=== PATIENT | male | born 1930 | race Caucasian/White ===

== ENCOUNTER → 2016-09-06 | Outpatient (CLI) | payer OTHER ==
[2016-09-06 10:37] LABS: CREATININE 0.9 mg/dL (0.70-1.50)
--- NOTE | 2016-09-06 19:13 | DI ---
History: Lloydalex's Prior study dated 08/10/16 available for comparison Current examination is performed administrating 65 cc of Isovue-370 intravenously ingested oral contr ast material. Inder's study is from the thoracic aorta. The level of the sella turcica. Findings: Small amount of granulation tissue right maxillary sinus. Ethmoid and sphenoid air cells ar e normal. Mastoid air cells well pneumatized. Skull base unremarkable. Some degenerative changes observed in the cervical canal. Hypopharynx unremarkable. Thoracic esophagus unremarkable. No CT evidence of mass or Zenkers divertic ulum. Sternum is unremarkable. Thyroid gland unremarkable in cross section. Mediastinum unremarkable to extent detected. Impression: No compelling evidence of Zenker's diverticulum. A small diverticulum that dilates with i ngested fluid may not be visible. Consider fluoroscopic evaluation Minor amount of granulation tissue present right maxillary sinus
== END ==
LOC: CT 10:00
PROVIDERS: ATTEND Surgery
DX: K22.5 Diverticulum of esophagus, acquired (principal)
CPT/HCPCS: 36415; 70491; 82565; 84520

== ENCOUNTER → 2016-10-24 | Outpatient (CLI) | payer OTHER | LOC: MMPC 09:00 | DX: C61 Malignant neoplasm of prostate (principal); K22.5 Diverticulum of esophagus, acquired; E03.9 Hypothyroidism, unspecified; G47.33 Obstructive sleep apnea (adult) (pediatric); I10 Essential (primary) hypertension; Z86.010 Personal history of colon polyps; H35.30 Unspecified macular degeneration | CPT/HCPCS: 99213; G0463 ==

== ENCOUNTER → 2016-12-07 | Outpatient (CLI) | payer OTHER | LOC: LAB 13:06 | DX: C61 Malignant neoplasm of prostate (principal) | CPT/HCPCS: 36415; 84153 ==

== ENCOUNTER → 2016-12-20 | Outpatient (CLI) | payer OTHER | LOC: MMPC 11:11 | DX: C61 Malignant neoplasm of prostate (principal); E03.9 Hypothyroidism, unspecified; K22.5 Diverticulum of esophagus, acquired; G47.33 Obstructive sleep apnea (adult) (pediatric); I10 Essential (primary) hypertension; Z86.010 Personal history of colon polyps | CPT/HCPCS: 99213; G0463 ==

== ENCOUNTER → 2017-02-07 | Outpatient (CLI) | payer OTHER | LOC: LAB 13:42 | PROVIDERS: ATTEND Urology | DX: C61 Malignant neoplasm of prostate (principal) | CPT/HCPCS: 36415; 84153 ==

== ENCOUNTER → 2017-02-20 | Outpatient (CLI) | payer OTHER | LOC: MMPC 11:11 | DX: C61 Malignant neoplasm of prostate (principal); I10 Essential (primary) hypertension; E55.9 Vitamin D deficiency, unspecified; E03.9 Hypothyroidism, unspecified; K63.5 Polyp of colon | CPT/HCPCS: 99213 ==

== ENCOUNTER → 2017-02-21 | Outpatient (CLI) | payer OTHER ==
[2017-02-21 08:35] LABS: BASOPHILS # (AUTO) 0.04 10*3/UL; BASOPHILS % (AUTO) 0.7 % (0-1); EOSINOPHILS # (AUTO) 0.28 10*3/UL; EOSINOPHILS % (AUTO) 4.7 % (0-8); HEMATOCRIT 39.6 % (42.0-52.0); HEMOGLOBIN 12.5 g/dL (14.0-18.0); LYMPHOCYTES # (AUTO) 1.74 10*3/uL; MEAN CORPUSCULAR HGB CONC 31.6 g/dL (33-37); MEAN PLATELET VOLUME 10.8 FL (7.4-12.2); MONOCYTES # (AUTO) 0.75 10*3/UL (0.3-0.8); MONOCYTES % (AUTO) 12.5 % (5-15); NEUTROPHILS # (AUTO) 3.18 10*3/UL; NEUTROPHILS % (AUTO) 52.9 % (50-80); RED BLOOD COUNT 4.17 10^6/uL (4.70-6.10)
[2017-02-21 08:44] LABS: PLATELET MORPHOLOGY COMMENT NORMAL MORPHOLOGY (NORM); RBC MORPHOLOGY COMMENT NORMAL MORPHOLOGY (NORM); WBC MORPHOLOGY COMMENT NORMAL MORPHOLOGY (NORM)
[2017-02-21 08:48] LABS: BUN/CREATININE RATIO 23.33 (6-20); CALCIUM 9.3 mg/dL (8.7-10.7); CHOL/HDL RATIO 3.2 RATIO (0-4.0); LDL CHOLESTEROL,CALCULATED 79.4 mg/dL; SERUM ALBUMIN 4.2 g/dL (3.5-4.8)
[2017-02-21 09:04] LABS: BILIRUBIN,URINE NEGATIVE (NEG); CLARITY,URINE CLEAR (CLEAR); COLOR,URINE YELLOW; GLUCOSE, URINE (UA) NEGATIVE (NEG); NITRATE,URINE POSITIVE (NEG); OCCULT BLOOD,URINE NEGATIVE (NEG); PH,URINE 5.5 (5.0-8.5); PROTEIN,URINE NEGATIVE (NEG); UROBILINOGEN,URINE 0.2 mg/dL (0.2)
[2017-02-21 09:09] LABS: BACTERIA,URINE RARE; URINE CRYSTALS FEW; URINE SAMPLE TYPE CLEAN CATCH URINE
[2017-02-21 10:25] LABS: FREE T4 (FREE THYROXINE) 1.32 ng/dL (0.93-1.71)
== END ==
LOC: LAB 08:02
DX: I10 Essential (primary) hypertension (principal); E03.9 Hypothyroidism, unspecified; E78.5 Hyperlipidemia, unspecified; E55.9 Vitamin D deficiency, unspecified; C61 Malignant neoplasm of prostate
CPT/HCPCS: 36415; 80053; 80061; 81001; 82306; 84439; 84443; 85025

== ENCOUNTER → 2017-04-05 | Outpatient (CLI) | payer OTHER | LOC: LAB 13:33 | PROVIDERS: ATTEND Urology | DX: C61 Malignant neoplasm of prostate (principal) | CPT/HCPCS: 36415; 84153 ==

== ENCOUNTER 2017-06-22 16:28 | Inpatient (IN) ==
--- NOTE | 2017-06-22 16:47 | PDOC ---
General Adult HPI - General Chief Complaint: Abdomen Pain Stated Complaint: constipation Date Seen by Provider: 06/22/17 Time Seen by Provider: 16:47 Source: POSITIVE: Patient Exam Limitations: POSITIVE: No limitations Nurse's Notes Reviewed & Considered: Yes - History of Present Illness Initial Comment: Patient is a 86-year-old male who presents to the emergency department for constipation. Patient indicates he has had no good bowel movement over the last 4 days. He does have some mild abdominal discomfort and distention. He started vomiting today. He was seen in urgent care yesterday and started on MiraLAX and magnesium citrate though seems to be getting worse. Patient has had a history of what sounds like colitis in the past but no history of bowel obstruction. Patient reports decreased passage of gas. Patient denies any urinary symptoms. He has not had any coughing or chest symptoms. Have you received a tetanus shot in the past 10 years?: Unknown - Patient Home Medications Home Medications: Home Medications Aspirin [Aspir 81] 81 mg PO DAILY 04/19/15 Cholecalciferol (Vitd3)/Vit K2 [D3 + K2 Dots 1,000 Units Tab] 1 tab PO DAILY Lutein 1 cap PO BID #60 04/19/15 Mineral Oil/Petrolatum,White [Eucerin Creme] 1 applic TOPICAL PRN PRN 04/19/15 Omeprazole 1 cap PO QD #90 04/19/15 Simvastatin 10 mg PO DAILY 04/19/15 Soap [Cetaphil] 1 applic TOPICAL PRN PRN 04/19/15 Sodium Chloride [Saline Nasal [place]] 2 spray BUCCAL BID 04/19/15 Spironolactone 0.5 tab PO QD #15 04/19/15 Polyvinyl Alcohol/Povidone/Pf [Refresh Classic Eye Drops] 1 ea OP QD #1 bottle 06/12/16 L.acidoph,Saliva/B.bif/S.therm [Acidophilus 175 Mg Capsule] 1 cap PO QD #30 cap 09/06/16 Wheat Dextrin [Benefiber] 2 sc PO QD #1 bottle 10/24/16 Levothyroxine Sodium 1 tab PO .QD(EXCEPT SUN.) #90 tab 02/22/17 Calcium Carb, Citrate/Vit D3 [Calcium + D3 ER Tablet] 1 ea PO DAILY 06/22/17 Paroxetine HCl [Paxil] 40 mg PO DAILY 06/22/17 - Patient Allergies Allergies/Adverse Reactions: Allergies 3 Allergy/AdvReac Type Severity Reaction Status Date / Time lisinopril AdvReac Severe Anaphylaxis Verified 06/22/17 16:33 Past Medical History - heen HEENT History: Macular Degeneration, Cataracts, Hard of Hearing, Other (please comment) Additional HEENT History: Bilateral hearing aids Cardiovascular History: Hypertension, Hyperlipidemia Respiratory History: Sleep Apnea, Other (please comment) Additional Respiratory History: CHRONIC SINUSITIS, BIPAP USED Gastrointestinal History: GERD, Diverticulitis, Other (please comment) Additional Gastrointestinal History: "I was sent to [place] a while ago for colon problems". Genitourinary History: Other (please comment) Additional Genitourinary History: RETENTION. Pt self caths at home BID Endocrine History: Hypothyroidism Musculoskeletal History: Arthritis Prosthesis or Implant: No Neurological History: Denies History Blood Disorders: Denies History Psychiatric History: Denies History History of Sexually Transmitted Diseases: No Cancer History: Denies History, Other (please comment) Cancer Treatment / Date(s) of Treatment: current In Past Year Been Physically Harmed or Verbally Threatened: No History of MDRO: Unknown Other Type of MDRO: staff in bladder infection History of Other Communicable Diseases: No Tobacco Use: Former Smoker Alcohol Use: None In the Past 12 Months, Have Used or Abuse Any Substance: None Previous Surgical History: Yes Type / Date of Surgery: Cataracts, TONSILECTOMY, SINUS, ESOPAGUS STRETCHING, AND PROSTATE(turp) Anesthesia Reactions: No Significant Family History: No pertinent family hx Past Medical History Reviewed: Reviewed - No Changes ROS - Limitations ROS Limitations: No Limitations Constitution: REPORTS: Denies Symptoms Cardiovascular: REPORTS: Denies Cardiac Symptoms Respiratory: REPORTS: Denies Resp Symptoms Neurological: REPORTS: Denies Neuro Symptoms Gastrointestinal: REPORTS: Abdominal Pain, Nausea, Constipation Endocrine: REPORTS: Denies Symptoms Musculoskeletal: REPORTS: Denies MS Symptoms Genitourinary: REPORTS: Denies Symptoms Eyes: REPORTS: Denies Symptoms ENT: REPORTS: Denies Symptoms Skin: REPORTS: Denies Skin Symptoms Psychiatric: POSITIVE: Denies Psych Symptoms General Adult Exam - General Appearance General Appearance: POSITIVE: Alert, Cooperative, No Acute Distress - HEENT HEENT: POSITIVE: Head Inspection Nml, Eyes Inspection Nml, Oral/Dental Inspect. Nml - Pupils Pupil Size: 4 mm: Bilateral - Neck Neck: POSITIVE: Normal Inspection - Respiratory Respiratory: POSITIVE: No Respiratory Distress, Breath Sounds Normal - Cardiovascular Cardiovascular: POSITIVE: Regular Rate & Rhythm, No Murmur, No Gallop - Abdomen Additional Abdominal Details: There is distention and tympany to palpation of the abdomen. There is fullness in the left lower quadrant. No manav rebound. There is diffuse tenderness to palpation. - Rectal Rectal: POSITIVE: Non Tender. NEGATIVE: Bloody Stool, Fecal Impaction - Skin Skin: POSITIVE: Normal Color, Warm, Dry - Extremities Extremity: Non-Tender: (LLE), (RLE), Normal ROM: (RLE), (LLE) - Neurological / Psychological Neurological: POSITIVE: Affect Apporpriate, Oriented X3 General Adult Progress - Results Reviewed by me Xrays/CTs/US Reviewed by me: Yes Lab Results Reviewed by Me: Yes CBC and BMP: 06/22/17 17:02 06/22/17 17:02 - Patient's Progress MDM / ED Course: Patient is a 86 y/o male who presents with abdominal discomfort and constipation. Vitals are unremarkable and examination demonstrates some distention of the abdomen. Differential diagnosis includes but is not limited to bowel obstruction, constipation, colitis. Patients XR is concerning for obstruction with air fluid levels and distention of the bowel. Patients white blood cell count was slightly elevated as well. Patient was given a 500 ns bolus of saline and treated with zofran. Patient was feeling somewhat better after fluids and zofran. I spoke with Dr. Strong of general surgery who will evaluate patient at bedside. CT scan is not available at this time due to technical problems. Patient's urine does appear to potentially be infected. I spoke with Dr. Rainey who will order antibiotics. NG tube will be placed on the floor. - Consult Consult (If Yes, Name of Consulting MD & Time Called): Yes (Ligia ) Consulting MD will see pt:: POSITIVE: In ED, [facility] Admit Patient Care Time - Estimated PCT Patient Care Time (In Minutes): 40 Vital Signs - Recent Vital Signs Vital Signs: Vital Signs (Last 8 hours) Temp Pulse Resp BP Pulse Ox 06/22/17 16:32 95.6 F L 77 18 152/95 94 - VS Reviewed Vital Signs Reviewed: Yes Discharge Clinical Impression: Bowel obstruction Qualifiers: Intestinal obstruction type: other intestinal obstruction Intestinal obstruction extent: unspecified extent Qualified Code(s): K56.699 - Other intestinal obstruction unspecified as to partial versus complete obstruction Discharge Disposition: Admit to Inpatient Condition: Good Date Decision to Admit to Inpatient: 06/22/17 Time Decision to Admit to Inpatient: 18:37
[2017-06-22] MEDS ORDERED: Sodium Chloride 0.9% 1,000 ML PRIMARY IV ONE ×2 (16:48→19:24)
[2017-06-22] MEDS ORDERED: ONDANSETRON 4 MG/2 ML VIAL IVP ONE (16:48)
[2017-06-22 17:07] LABS: BASOPHILS # (AUTO) 0.01 10*3/UL; BASOPHILS % (AUTO) 0.1 % (0-1); EOSINOPHILS # (AUTO) 0 10*3/UL; EOSINOPHILS % (AUTO) 0 % (0-8); Hematocrit [HCT] 41.8 % (42.0-52.0); Hemoglobin [HGB] 13.6 g/dL (14.0-18.0); LYMPHOCYTES # (AUTO) 0.69 10*3/uL; MEAN CORPUSCULAR HEMOGLOBIN 30.6 PG (27-31); MEAN CORPUSCULAR HGB CONC 32.5 g/dL (33-37); MEAN CORPUSCULAR VOLUME 94.1 FL (80-90); MEAN PLATELET VOLUME 10.8 FL (7.4-12.2); MONOCYTES # (AUTO) 0.93 10*3/UL (0.3-0.8); MONOCYTES % (AUTO) 8.2 % (5-15); NEUTROPHILS # (AUTO) 9.68 10*3/UL; NEUTROPHILS % (AUTO) 85.5 % (50-80); RED BLOOD COUNT 4.44 10^6/uL (4.70-6.10)
[2017-06-22 17:14] LABS: BLOOD UREA NITROGEN 33 mg/dL (7-22); BUN/CREATININE RATIO 36.66 (6-20); LIPASE 21 IU/L (23-300); SERUM ALBUMIN 4.4 g/dL (3.5-4.8)
[2017-06-22 17:29] LABS: PLATELET MORPHOLOGY COMMENT NORMAL MORPHOLOGY (NORM); RBC MORPHOLOGY COMMENT NORMAL MORPHOLOGY (NORM); WBC MORPHOLOGY COMMENT NORMAL MORPHOLOGY (NORM)
[2017-06-22 18:19] LABS: BILIRUBIN,URINE NEGATIVE (NEG); CLARITY,URINE CLOUDY (CLEAR); COLOR,URINE YELLOW; GLUCOSE, URINE (UA) NEGATIVE (NEG); NITRATE,URINE NEGATIVE (NEG); OCCULT BLOOD,URINE MODERATE (NEG); PROTEIN,URINE 100 mg/dl (NEG); UROBILINOGEN,URINE 0.2 mg/dL (0.2)
[2017-06-22 18:28] LABS: URINE SAMPLE TYPE CLEAN CATCH URINE; WBC,URINE 15-20
[2017-06-22 18:29] LABS: BACTERIA,URINE MANY; URINE CRYSTALS MANY
--- NOTE | 2017-06-22 19:03 | CONSULT ---
Consult Note - Consult Consult Date: 06/22/17 Reason for Consult: PreOp Consulation : General Surgery Requesting Physician: Dr. Karen Desir Primary Care Provider: Giovanni Medeiros MD - History of Present Illness History of Present Illness: Patient is an 86-year-old male who reports retrospectively that problems have been going on for some time. His last bowel movement was on Sunday. He has passed very little gas since that time. He reports his bowels had been more difficult for about the last several weeks to a month. The stool is always hard. It was hard to pass it. He was not having diarrhea. There was no bright red blood per rectum. He denies funny size or shape was to the stool. Patient had an attempted colonoscopy in 2014. They describe severe diverticulosis but were unable to pass the sigmoid colon. Patient had two CTs of his abdomen and pelvis in June and July 2016. No gross abnormalities were seen as far as tumors or masses. On the first when he had a left hydroureter. There was thought to be reflux secondary to obstruction. That is when he was diagnosed with his prostate cancer. The second study showed dried stool in the sigmoid colon and an abnormal prostate. Patient has never had an obstructive process before. He has had no abdominal surgeries. He does have prostate cancer and has been on Lupron injections. The tells me he is in remission. He denies any significant dietary indiscretion. His abdomen has slowly become more and more distended. He was seen in the open access clinic yesterday and diagnosed with constipation. No x-ray studies were done. He took some MiraLAX, magnesium citrate, and mineral oil. He took some Dulcolax suppositories. He has not yet given himself an enema. After we did all that he became more distended and had nausea and vomiting. He presented to the emergency room for the same. He was evaluated by the emergency room physician. CAT scan is down mechanically but we are trying to do a scan on a SpectCT. His flat and upright abdomen shows distended small bowel and I believe large bowel. There appears to be air in the sigmoid colon as well. The emergency room physician did a rectal exam and did not note a stool impaction. Patient does not have an acute abdomen. He is distended and tympanitic with mild tenderness. His white count is only slightly elevated. I believe it is reasonable to admit him for an NG tube, hydration, and follow-up studies. We will see what the CT scan shows when we are able to do it. Any signs of deterioration he would need a laparotomy. It is worrisome he has an obstructive process without prior abdominal surgeries. This could be anything from small bowel to colon. I discussed all of this with the patient and his family. He understands we do not have a functioning CT scan. He would like to stay here unless it is absolutely necessary to transfer him to [place] at this time. I have told him and the family I do not think that it is. I discussed his case extensively with Dr. Sainz in the emergency room and Dr. Jones. Dr. Jones we will admit him and I will follow him closely in consultation. The CT scan has just now been completed. Patient has large volumes of stool in the right colon and the sigmoid colon. The sigmoid colon seems to taper down to an area of diverticulosis. This is probably where the could no longer proceed with his colonoscopy. I do not see an obvious mass or a stricture. I believe he has a fecal impaction above this area and his sigmoid colon. I will order a mineral oil enema. We will check the final report from radiology when available. Review of Systems - Gastrointestinal Gastrointestinal / Abdominal: REPORTS: Nausea, Vomiting, Constipation, Abdominal Pain, Poor Appetite, Bloating, See HPI. DENIES: Negative System Review, Diarrhea, Bloody Stool, Heartburn, Regurgitation, Lactose Intolerance, Melena, Bright Red Blood per Rectum, Other Past Medical History Medical History: 1. Hypertension. 2. Hypothyroidism. 3. Intermittent self- catheterization with previous history of 2 UTIs last one was in March this year. 4. Sleep apnea. 5. Zenker's diverticulum. 6. History of colon polyps. 7. Prostate cancer. 8. Hyperlipidemia Surgical History: 1. BPH status post TURP in 1998. 2. Cataract surgery. 3. Incomplete colonoscopy in 2014. 4. Zenker's diverticulum surgery in 2016. 5. Remote tonsillectomy and adenoidectomy Family History: Reviewed an Not Pertinent Tobacco Use: Former Smoker Do you dip or chew tobacco: No In the Past 12 Months, Have Used or Abuse Any of the Following Substance: None Medication / Allergies Home Medications: Home Medications Medication Instructions Recorded Confirmed Type Aspirin [Aspir 81] 81 mg PO DAILY 04/19/15 06/22/17 History Cholecalciferol (Vitd3)/Vit K2 [D3 1 tab PO DAILY 04/19/15 06/22/17 History + K2 Dots 1,000 Units Tab] Lutein 1 cap PO BID #60 04/19/15 06/22/17 History Mineral Oil/Petrolatum,White 1 applic TOPICAL PRN PRN 04/19/15 06/22/17 History [Eucerin Creme] Omeprazole 1 cap PO QD #90 04/19/15 06/22/17 History Simvastatin 10 mg PO DAILY 04/19/15 06/22/17 History Soap [Cetaphil] 1 applic TOPICAL PRN PRN 04/19/15 06/22/17 History Sodium Chloride [Saline Nasal 2 spray BUCCAL BID 04/19/15 06/22/17 History [place]] Spironolactone 0.5 tab PO QD #15 04/19/15 06/22/17 History Polyvinyl Alcohol/Povidone/Pf 1 ea OP QD #1 bottle 06/12/16 06/22/17 History [Refresh Classic Eye Drops] L.acidoph,Saliva/B.bif/S.therm 1 cap PO QD #30 cap 09/06/16 06/22/17 Rx [Acidophilus 175 Mg Capsule] Wheat Dextrin [Benefiber] 2 sc PO QD #1 bottle 10/24/16 06/22/17 Rx Levothyroxine Sodium 1 tab PO .QD(EXCEPT SUN.) #90 tab 02/22/17 06/22/17 History Calcium Carb, Citrate/Vit D3 1 ea PO DAILY 06/22/17 06/22/17 History [Calcium + D3 ER Tablet] Paroxetine HCl [Paxil] 40 mg PO DAILY 06/22/17 06/22/17 History Allergies/Adverse Reactions: Allergies 3 Allergy/AdvReac Type Severity Reaction Status Date / Time lisinopril AdvReac Severe Anaphylaxis Verified 06/22/17 16:33 Results - Labs CBC and BMP: 06/22/17 17:02 06/22/17 17:02 - Imaging Status: Image Reviewed by Me (I reviewed the CT scan and the flat and upright abdomen films. Please see history of present illness.), Report Reviewed by Me ( The flat and upright report was reviewed as well. CT report is pending.) Exam - General General Appearance: Cooperative, Mild Distress - Respiratory Respiratory Exam: POSITIVE: Clear to Auscultation - Bilaterally, Breathing Non Labored - Cardiovascular Cardiovascular Exam: POSITIVE: RRR, No Murmur - GI/Abdominal GI/Abdominal Exam: POSITIVE: Soft, Distended, Hypoactive Bowel Sounds, No Masses Additional GI/Abdominal Exam Details: Abdomen is markedly distended and tympanitic. There are rushes and gurgles. There is mild diffuse tenderness but no peritoneal signs. - Rectal Additional Rectal Exam Details: Digital rectal exam done per the ER physician. He did not feel a fecal impaction. No obvious masses. I did not repeat the exam. - Neurological Neurological Exam: POSITIVE: Alert, Oriented x 3 - Psychiatric Psychiatric Exam: POSITIVE: Normal Affect, Normal Mood Assessment and Plan - Patient Problems (1) Bowel obstruction Current Visit: Yes Status: Acute Priority: High Onset Date: ~06/17/17 Comment: He has a large volume of stool in the colon. It looks like the colon tapers down to an area of diverticulosis where the stool is no longer passing through. I don't believe he is completely obstructed. I believe this is a large bowel high-grade partial obstruction. We will review the radiology report when available. Patient has gotten some medications from above. We will continue NG tube decompression. We will do a mineral oil enema. I don't think this area would be palpable on digital rectal exam. We'll need to consider an unprepped sigmoidoscopy to see if we can open things up. Any signs of deterioration he will need to undergo resection and diverting colostomy. We will also consider Gastrografin from above to see if that will loosen things up. I have discussed all of this with the ER doctor, Dr. Jones, the patient, and his family. They agreed to proceed as outlined. Code(s): K56.609 - Unspecified intestinal obstruction, unspecified as to partial versus complete obstruction Qualifiers: Intestinal obstruction type: other intestinal obstruction Intestinal obstruction extent: unspecified extent Qualified Code(s): K56.699 - Other intestinal obstruction unspecified as to partial versus complete obstruction (2) Diverticulosis large intestine w/o perforation or abscess w/o bleeding Current Visit: Yes Status: Chronic Priority: Low Comment: May be a functional stricture. Code(s): K57.30 - Diverticulosis of large intestine without perforation or abscess without bleeding (3) Fecal impaction Current Visit: Yes Status: Acute Comment: Secondary to above. Code(s): K56.41 - Fecal impaction
--- NOTE | 2017-06-22 19:09 | DI ---
EXAM: XR Abdomen, 1 View CLINICAL HISTORY: 86 y/o male with abdominal pain and distension. TECHNIQUE: Frontal supine view of the abdomen/pelvis. COMPARISON: No relevant prior studies available. FINDINGS: Gastrointestinal tract: Dilated bowel with air fluid levels. Bones/joints: Degenerative changes. Other findings: Three films including supine films of the abdomen and pelvis and upright film of the abdomen. IMPRESSION: Dilated bowel with air fluid levels. Findings suggest bowel obstruction.
[2017-06-22] MEDS ORDERED: ACETAMINOPHEN 325 MG TABLET PO PRN (19:24)
[2017-06-22] MEDS ORDERED: LIDOCAINE W/ SODIUM BICARB 0.5 ML SYR SUBD PRN (19:24)
[2017-06-22] MEDS ORDERED: HYDROmorphone 2 MG/1 ML IVP PRN (19:24)
[2017-06-22] MEDS ORDERED: ONDANSETRON 4 MG/2 ML VIAL IVP PRN (19:24)
[2017-06-22] MEDS ORDERED: NORMAL SALINE 10 ML SYRINGE FLUSH IVP PRN (19:24)
--- NOTE | 2017-06-22 19:59 | DI ---
EXAM: CT Abdomen and Pelvis With Intravenous Contrast CLINICAL HISTORY: Physician Notes: Tech Comments: TECHNIQUE: Axial computed tomography images of the abdomen and pelvis with intravenous contrast. COMPARISON: CT 08/10/16. Earlier films. FINDINGS: Lower thorax: Bilateral ground-glass opacities in the lower lung lowery. Small hiatal hernia. ABDOMEN: Liver: Unremarkable. Gallbladder and bile ducts: No calcified stones. No ductal dilation. Pancreas: Unremarkable. Spleen: Unremarkable. Adrenals: Unremarkable. Kidneys and ureters: Left renal scarring with too small to characterize foci. Dilatation of the left renal collecting system and ureter. No obstructing stone. Too small to characterize low attenuation foci in the right kidney. Stomach and bowel: Dilatation of small and large bowel with caliber change in the sigmoid colon. Must exclude underlying stricturing and obstructing lesion. Colonic diverticula. Some peripheral located air in bowel. Could be related to the stooling pattern - luminal contents. There is radiographic overlap with pneumatosis. Correlate with lactic acidosis if clinically appropriate. Appendix: Borderline caliber of the appendix, measures about 7 mm. PELVIS: Bladder: Unremarkable. Reproductive: Heterogeneous prostate with nodular lesion superiorly measuring about 12 mm. ABDOMEN and PELVIS: Intraperitoneal space: Small amounts of fluid in the peritoneal cavity. Bones/joints: No acute fracture. Soft tissues: Unremarkable. Vasculature: Unremarkable. Lymph nodes: No enlarged lymph nodes. IMPRESSION: 1. Dilatation of small and large bowel with caliber change in the sigmoid colon. Must exclude underlying stricturing and obstructing lesion. 2. Bilateral ground-glass opacities in the lower lung lowery. May be from edema, pneumonia and/or hemorrhage. [employer] 06/22/17 20:05 Verify Receipt Verified receipt with LUDY Farley in ER for Dr. Brennan Sainz on 06/22 20:04 (-06:00)
[2017-06-22] MEDS ORDERED: Fleet Enema 133ml RECTAL ONE (20:07)
[2017-06-22] MEDS ORDERED: LIDOCAINE HCL/PF 2% (20 MG/ML) - 5 ML SYRINGE ONE (20:11)
[2017-06-22] MEDS ORDERED: Fleet Enema w/Mineral Oil 133ml RECTAL ONE (20:13)
[2017-06-22] MEDS: Sodium Chloride 0.9% 1,000 ML PRIMARY IV SCH (20:55)
--- NOTE | 2017-06-22 23:35 | PDOC ---
HPI - History of Present Illness Date and Time of Service: 06/22/2017, 5079 Chief Complaint: abdominal pain and constipation History of Present Illness: 86 YO here with and with daughter complains of 3-4 days of lower abdominal pain and constipation never had abdominal surgery, not on opiates had incomplete colonoscopy in 2014 with sigmoid diverticulosis no fevers, no chills, no dysuria no bloody vomit or stools saw urgent care. placed on magnesium citrate. then mineral oil neither worked had xrays that show dilated loops of bowel CT scan shows possible fecal impaction per surgery patient had success in past with miralax does not use and has not used opiates UA suggests possible UTI, but patient with hx of prostate CA and self cath in past; no dysuria and no fever Past Medical History Medical History: 1. Hypertension. 2. Hypothyroidism. 3. Intermittent self- catheterization with previous history of 2 UTIs last one was in March this year. 4. Sleep apnea. 5. Zenker's diverticulum, surgically repaired. 6. History of colon polyps. 7. Prostate cancer, on lupron. 8. Hyperlipidemia Surgical History: 1. BPH status post TURP in 1998. 2. Cataract surgery. 3. Incomplete colonoscopy in 2014. 4. Zenker's diverticulum surgery in 2016. 5. Remote tonsillectomy and adenoidectomy Family History: Reviewed an Not Pertinent Pertinent Family History: mother of natural causes Past Social History: no smoking, alcohol, or drug use. over 60 years. lives in [place], [place] Tobacco Use: Former Smoker Do you dip or chew tobacco: No In the Past 12 Months, Have Used or Abuse Any of the Following Substance: None Alcohol Use: None Medication / Allergies Home Medications: Home Medications Medication Instructions Recorded Confirmed Type Aspirin [Aspir 81] 81 mg PO DAILY 04/19/15 06/22/17 History Cholecalciferol (Vitd3)/Vit K2 [D3 1 tab PO DAILY 04/19/15 06/22/17 History + K2 Dots 1,000 Units Tab] Lutein 1 cap PO BID #60 04/19/15 06/22/17 History Mineral Oil/Petrolatum,White 1 applic TOPICAL PRN PRN 04/19/15 06/22/17 History [Eucerin Creme] Omeprazole 1 cap PO QD #90 04/19/15 06/22/17 History Simvastatin 10 mg PO DAILY 04/19/15 06/22/17 History Soap [Cetaphil] 1 applic TOPICAL PRN PRN 04/19/15 06/22/17 History Sodium Chloride [Saline Nasal 2 spray BUCCAL BID 04/19/15 06/22/17 History Almena] Spironolactone 0.5 tab PO QD #15 04/19/15 06/22/17 History Polyvinyl Alcohol/Povidone/Pf 1 ea OP QD #1 bottle 06/12/16 06/22/17 History [Refresh Classic Eye Drops] L.acidoph,Saliva/B.bif/S.therm 1 cap PO QD #30 cap 09/06/16 06/22/17 Rx [Acidophilus 175 Mg Capsule] Wheat Dextrin [Benefiber] 2 sc PO QD #1 bottle 10/24/16 06/22/17 Rx Levothyroxine Sodium 1 tab PO .QD(EXCEPT SUN.) #90 tab 02/22/17 06/22/17 History Calcium Carb, Citrate/Vit D3 1 ea PO DAILY 06/22/17 06/22/17 History [Calcium + D3 ER Tablet] Paroxetine HCl [Paxil] 40 mg PO DAILY 06/22/17 06/22/17 History Allergies/Adverse Reactions: Allergies 3 Allergy/AdvReac Type Severity Reaction Status Date / Time lisinopril AdvReac Severe Anaphylaxis Verified 06/22/17 16:33 Review of Systems - Review of Systems All Systems: Reviewed & No Additional Complaints Except as Stated (I did a 12 point review of systems. As per HPI and occasional shoulder pain.) Exam - Vitals Vital Signs: Vital Signs Temperature 98.0 F Temperature Source Temporal Artery Scan Pulse Rate 84 Respiratory Rate 20 Blood Pressure 196/104 Pulse Ox 94 Oxygen Flow Rate 1 Oxygen Delivery Method Nasal Cannula Height 5 ft 11 in Weight 172 lb 9.6 oz - General General Appearance: No Acute Distress, Cooperative - Head Head Exam: Normal Inspection, Normocephalic, Atraumatic - Eye Eye Exam: POSITIVE: Normal Appearance, EOMI, No Scleral Icterus - ENT ENT Exam: POSITIVE: Mucous Membranes Moist - Neck Neck Exam: Normal Inspection, No Tenderness, No Lymphadenopathy, No Thyromegaly - Respiratory Respiratory Exam: POSITIVE: Clear to Auscultation - Bilaterally, Breathing Non Labored, Normal to Percussion and Palpation - Cardiovascular Cardiovascular Exam: POSITIVE: RRR, No Murmur, No Clicks, No Gallops, No Rubs, No JVD - GI/Abdominal GI/Abdominal Exam: POSITIVE: Non Tender, Diminished Bowel Sounds - Rectal Rectal Exam: POSITIVE: Deferred (done in ER) - External Exam: POSITIVE: Deferred Exam: POSITIVE: Deferred - Extremities Extremities Exam: POSITIVE: No Clubbing Present, No Edema Present, No Cyanosis Present - Back Back Exam: POSITIVE: No CVA Tenderness - Neurological Neurological Exam: POSITIVE: Alert, Oriented x 3, No Facial Droop, Speech Intact / Clear, Moves All Extremities Equally - Psychiatric Psychiatric Exam: POSITIVE: Normal Affect, Normal Mood Results - Labs CBC and BMP: 06/22/17 17:02 06/22/17 17:02 Additional Lab Results: Laboratory Results 06/22/17 06/22/17 06/22/17 Range/Units 16:48 16:56 16:56 WBC (4.8-10.8) 10^3/uL RBC (4.70-6.10) 10^6/uL Hgb (14.0-18.0) g/dL Hct (42.0-52.0) % MCV (80-90) FL MCH (27-31) PG MCHC (33-37) g/dL RDW Std Deviation (39-50) fL RDW Coeff of Valerie (11.5-14.5) % Plt Count (140-350) 10*3/uL MPV (7.4-12.2) FL Immature Gran % (Auto) (0-5) % Neut % (Auto) (50-80) % Lymph % (Auto) (10-50) % Collier % (Auto) (5-15) % Eos % (Auto) (0-8) % Baso % (Auto) (0-1) % Immature Gran # (Auto) 10*3/UL Neut # (Auto) 10*3/UL Lymph # (Auto) 10*3/uL Collier # (Auto) (0.3-0.8) 10*3/UL Eos # (Auto) 10*3/UL Baso # (Auto) 10*3/UL WBC Morphology Comment (NORM) Plt Morphology Comment (NORM) RBC Morph Comment (NORM) Sodium (135-145) meq/L Potassium (3.8-5.2) meq/L Chloride (98-112) meq/L Carbon Dioxide (23-33) meq/L Anion Gap (5-20) BUN (7-22) mg/dL Creatinine (0.70-1.50) mg/dL BUN/Creatinine Ratio (6-20) Glucose (78-110) mg/dL Calculated Osmolality (267-292) mOsm/kg Lactic Acid (0.70-2.10) MMOL/L Calcium (8.7-10.7) mg/dL Total Bilirubin (0.3-1.2) mg/dL AST (21-57) IU/L ALT (21-72) IU/L Alkaline Phosphatase (38-126) IU/L Troponin I < 0.012 (< 0.040) ng/mL Total Protein (6.1-8.0) g/dL Albumin (3.5-4.8) g/dL Globulin (2.50-4.10) g/dL Albumin/Globulin Ratio (1.3-2.0) mg/g Lipase (23-300) IU/L TSH 2.77 (0.2700-4.2000) uIU/mL Free T4 0.92 L (0.93-1.71) ng/dL Ur Collection Type Clean catch urine Urine Color Yellow Urine Clarity Cloudy (CLEAR) Urine pH 7.0 (5.0-8.5) Ur Specific [place] 1.025 (1.005-1.030) Urine Protein 100 (NEG) mg/dl Urine Glucose (UA) Negative (NEG) mg/dL Urine Ketones Negative (NEG) Urine Occult Blood Moderate (NEG) Urine Nitrate Negative (NEG) Urine Bilirubin Negative (NEG) Urine Urobilinogen 0.2 (0.2) mg/dL Ur Leukocyte Esterase Small (NEG) Urine RBC 4-6 (NONE) /hpf Urine WBC 15-20 (NONE) Ur Squamous Epith Cells None (NONE) Ur Renal Epithelial Cell None (NONE) Urine Crystals Many Urine Bacteria Many (NONE) Urine Casts None Urine Mucus None (NONE) Urine Trichomonas None (NONE) Urine Yeast None (NONE) 06/22/17 06/22/17 06/22/17 Range/Units 17:02 17:02 18:00 WBC 11.32 H (4.8-10.8) 10^3/uL RBC 4.44 L (4.70-6.10) 10^6/uL Hgb 13.6 L (14.0-18.0) g/dL Hct 41.8 L (42.0-52.0) % MCV 94.1 H (80-90) FL MCH 30.6 (27-31) PG MCHC 32.5 L (33-37) g/dL RDW Std Deviation 45.3 (39-50) fL RDW Coeff of Valerie 13.6 (11.5-14.5) % Plt Count 213 (140-350) 10*3/uL MPV 10.8 (7.4-12.2) FL Immature Gran % (Auto) 0.1 (0-5) % Neut % (Auto) 85.5 H (50-80) % Lymph % (Auto) 6.1 L (10-50) % Collier % (Auto) 8.2 (5-15) % Eos % (Auto) 0 (0-8) % Baso % (Auto) 0.1 (0-1) % Immature Gran # (Auto) 0.01 10*3/UL Neut # (Auto) 9.68 10*3/UL Lymph # (Auto) 0.69 10*3/uL Collier # (Auto) 0.93 H (0.3-0.8) 10*3/UL Eos # (Auto) 0 10*3/UL Baso # (Auto) 0.01 10*3/UL WBC Morphology Comment Normal morphology (NORM) Plt Morphology Comment Normal morphology (NORM) RBC Morph Comment Normal morphology (NORM) Sodium 141 (135-145) meq/L Potassium 4.3 (3.8-5.2) meq/L Chloride 93 L (98-112) meq/L Carbon Dioxide 33 (23-33) meq/L Anion Gap 15 (5-20) BUN 33 H (7-22) mg/dL Creatinine 0.9 (0.70-1.50) mg/dL BUN/Creatinine Ratio 36.66 H (6-20) Glucose 155 H (78-110) mg/dL Calculated Osmolality 301.0 H (267-292) mOsm/kg Lactic Acid 2.3 H (0.70-2.10) MMOL/L Calcium 9.7 (8.7-10.7) mg/dL Total Bilirubin 1.0 (0.3-1.2) mg/dL AST 42 (21-57) IU/L ALT 29 (21-72) IU/L Alkaline Phosphatase 67 (38-126) IU/L Troponin I (< 0.040) ng/mL Total Protein 7.5 (6.1-8.0) g/dL Albumin 4.4 (3.5-4.8) g/dL Globulin 3.1 (2.50-4.10) g/dL Albumin/Globulin Ratio 1.40 (1.3-2.0) mg/g Lipase 21 L (23-300) IU/L TSH (0.2700-4.2000) uIU/mL Free T4 (0.93-1.71) ng/dL Ur Collection Type Urine Color Urine Clarity (CLEAR) Urine pH (5.0-8.5) Ur Specific [place] (1.005-1.030) Urine Protein (NEG) mg/dl Urine Glucose (UA) (NEG) mg/dL Urine Ketones (NEG) Urine Occult Blood (NEG) Urine Nitrate (NEG) Urine Bilirubin (NEG) Urine Urobilinogen (0.2) mg/dL Ur Leukocyte Esterase (NEG) Urine RBC (NONE) /hpf Urine WBC (NONE) Ur Squamous Epith Cells (NONE) Ur Renal Epithelial Cell (NONE) Urine Crystals Urine Bacteria (NONE) Urine Casts Urine Mucus (NONE) Urine Trichomonas (NONE) Urine Yeast (NONE) - EKG Data -: EKG Interpreted by Me Rate: Normal EKG Shows Normal: Sinus Rhythm - EKG Data EKG Interpretation: Other (right bundle branch block) - Imaging Status: Image Reviewed by Me (xrays of abdomen show dilated loops of bowel CT scan shows dilated loops of bowel radiology interpretations noted) Assessment and Plan - Patient Problems (1) Bowel obstruction Current Visit: Yes Status: Acute Code(s): K56.609 - Unspecified intestinal obstruction, unspecified as to partial versus complete obstruction Qualifiers: Intestinal obstruction type: other intestinal obstruction Intestinal obstruction extent: unspecified extent Qualified Code(s): K56.699 - Other intestinal obstruction unspecified as to partial versus complete obstruction (2) Hx: UTI (urinary tract infection) Current Visit: Yes Status: Acute Code(s): Z87.440 - Personal history of urinary (tract) infections (3) GERD (gastroesophageal reflux disease) Current Visit: Yes Status: Acute Code(s): K21.9 - Gastro-esophageal reflux disease without esophagitis Qualifiers: Esophagitis presence: without esophagitis Qualified Code(s): K21.9 - Gastro -esophageal reflux disease without esophagitis (4) Hypertension Current Visit: Yes Status: Acute Code(s): I10 - Essential (primary) hypertension Qualifiers: Hypertension type: essential hypertension Qualified Code(s): I10 - Essential (primary) hypertension (5) Hypothyroidism Current Visit: Yes Status: Chronic Code(s): E03.9 - Hypothyroidism, unspecified Qualifiers: Hypothyroidism type: acquired Qualified Code(s): E03.9 - Hypothyroidism, unspecified (6) Prostate cancer Current Visit: Yes Status: Acute Code(s): C61 - Malignant neoplasm of prostate - Assessment / Plan Additional Assessment/Plan Details: admit IV fluids, bolus and maintenance rate no antibiotics--I do not think patient has UTI. he does not have dysuria or fever NPO pain meds and antiemetics discussed with and consulted surgery--try mineral oil enema tonight repeat abdominal films in AM tried NG tube, but after two attempts, both were in right lung--to avoid injury and complications, aspiration PNA, etc, I elected to abort this procedure. I notified surgery--they would like another attempt in AM. given prior nasal surgery and zenker's surgery, not sure if anatomy will allow, but I did discuss with RN lia, and they will make another attempt in AM. I discussed aborting procedure tonight with family. if fevers develop, treat for aspiration pneumonia check labs in AM surgical management as per Dr. Strong check TSH given some hypothyroid symptoms despite replacement patient is FULL CODE. I discussed risks and benefits with the family and patient. patient and family are in agreement with the plan.
[2017-06-23] MEDS: Sodium Chloride 0.9% 1,000 ML PRIMARY IV SCH ×2 (04:51→12:10)
[2017-06-23] MEDS ORDERED: LEVOTHYROXINE 75 MCG TABLET PO SCH (05:30)
[2017-06-23 06:02] LABS: BASOPHILS # (AUTO) 0.01 10*3/UL; BASOPHILS % (AUTO) 0.1 % (0-1); EOSINOPHILS # (AUTO) 0 10*3/UL; EOSINOPHILS % (AUTO) 0 % (0-8); Hematocrit [HCT] 37.3 % (42.0-52.0); Hemoglobin [HGB] 11.8 g/dL (14.0-18.0); LYMPHOCYTES # (AUTO) 0.68 10*3/uL; MEAN CORPUSCULAR HEMOGLOBIN 30.3 PG (27-31); MEAN CORPUSCULAR HGB CONC 31.6 g/dL (33-37); MEAN CORPUSCULAR VOLUME 95.9 FL (80-90); MONOCYTES # (AUTO) 0.85 10*3/UL (0.3-0.8); MONOCYTES % (AUTO) 10.5 % (5-15); NEUTROPHILS # (AUTO) 6.51 10*3/UL; NEUTROPHILS % (AUTO) 80.9 % (50-80); RED BLOOD COUNT 3.89 10^6/uL (4.70-6.10)
[2017-06-23 06:07] LABS: PLATELET MORPHOLOGY COMMENT NORMAL MORPHOLOGY (NORM); RBC MORPHOLOGY COMMENT NORMAL MORPHOLOGY (NORM); WBC MORPHOLOGY COMMENT NORMAL MORPHOLOGY (NORM)
[2017-06-23 06:16] LABS: BLOOD UREA NITROGEN 32 mg/dL (7-22); SERUM ALBUMIN 3.4 g/dL (3.5-4.8)
--- NOTE | 2017-06-23 08:23 | EKG ---
[address] [address] Measurements Intervals [place] Rate: 74 P: 10 TN: 162 QRS: 94 QRSD: 146 T: 79 QT: 415 QTc: 443 Interpretive Statements SINUS RHYTHM RIGHT BUNDLE BRANCH BLOCK (NEW) NONSPECIFIC T WAVE ABNORMALITY Compared to ECG 04/19/2015 21:36:50 Right bundle-branch block now present Short TN interval no longer present Electronically Signed On 06-23-17 11:23:42 MDT by Woo Mcfarlane [email or web address]
[2017-06-23] MEDS ORDERED: LIDOCAINE HCL 2 % 10 ML JELLY URO-JECT TOPICAL ONE (08:28)
--- NOTE | 2017-06-23 08:45 | DI ---
2 VIEW ABDOMEN: HISTORY: 86-year-old male with bowel obstruction. COMPARISON: Abdominal x-rays and abdomen and pelvis CT with intravenous contrast 06/22/2017. FINDINGS: Supine and upright views of the abdomen demonstrate numerous lung air-fluid levels within mildly to moderately dilated large and small bowel loops throughout the abdomen and pelvis, without obvious significant interval change. No obvious pneumoperitoneum or pneumatosis. There is excreted intravenous contrast within the mildly to moderately distended urinary bladder, as well as within the mildly dilated distal left ureter. There are patchy coarse reticular opacities within the imaged lung bases bilaterally, as before. IMPRESSION: No significant short interval change: Grossly stable bowel gas pattern, with air-fluid levels throughout mildly to moderately dilated large and small bowel loops; no pneumoperitoneum or obvious pneumatosis.
--- NOTE | 2017-06-23 09:43 | PDOC(PROG) ---
Date and Time of Service: 06/23/2017 9:44 AM Interval History: Subjective Patient came into the hospital because of constipation for about 5 days, no significant abdominal pain. He did say that he went to the urgent clinic 2 days ago they gave him mag citrate, MiraLAX and Fleet enema. He tried the mag citrate and he vomited after that. he came into the ER yesterday was found to have bowel obstruction and he was admitted. He is denying abdominal pain. No nausea. They had problems inserting the NG last night and was just inserted this morning. He's not passing gas and did not have a bowel movement yet. Apparently he used to do self catheterization but he stopped doing it 2 months ago as instructed by his urologist Objective : Data - Labs CBC and BMP: 06/23/17 05:54 06/23/17 05:54 Objective : Exam - General General Appearance: No Acute Distress, Cooperative - Head Head Exam: Normal Inspection, Atraumatic - Eye Eye Exam: Normal Appearance - ENT ENT Exam: Normal Exam - Neck Neck Exam: Normal Inspection - Respiratory Respiratory Exam: Clear to Auscultation - Bilaterally - Cardiovascular Cardiovascular Exam: RRR - GI/Abdominal GI/Abdominal Exam: No Organomegaly Additional GI/Abdominal Exam Details: Abdomen is firm. Distended. Nontender. Very sluggish bowel sounds. - Rectal Rectal Exam: Deferred - External Exam: Deferred - Extremities Extremities Exam: Normal Inspection - Back Back Exam: Normal Inspection - Neurological Neurological Exam: Alert, Oriented x 3, CN II-XII Intact, Speech Intact / Clear , Moves All Extremities Equally - Psychiatric Psychiatric Exam: Normal Affect - Integumentary Integumentary Exam: Normal Color Assessment and Plan - Patient Problems (1) Bowel obstruction Current Visit: Yes Status: Acute Comment: He had the NG inserted this morning continue suctioning. Continue IV fluid. Will see the recommendation of surgery today. Code(s): K56.609 - Unspecified intestinal obstruction, unspecified as to partial versus complete obstruction Qualifiers: Intestinal obstruction type: other intestinal obstruction Intestinal obstruction extent: unspecified extent Qualified Code(s): K56.699 - Other intestinal obstruction unspecified as to partial versus complete obstruction (2) Hypertension Current Visit: Yes Status: Acute Comment: He is normally on Aldactone, will watch his blood pressure now. Code(s): I10 - Essential (primary) hypertension Qualifiers: Hypertension type: essential hypertension Qualified Code(s): I10 - Essential (primary) hypertension (3) Hypothyroidism Current Visit: Yes Status: Chronic Comment: He is on levothyroxine. Code(s): E03.9 - Hypothyroidism, unspecified Qualifiers: Hypothyroidism type: acquired Qualified Code(s): E03.9 - Hypothyroidism, unspecified (4) Ground glass opacity present on imaging of lung Current Visit: Yes Status: Acute Comment: CT showed groundglass opacities when he came in. He is denying symptoms. His white count is back to normal. There is no fever. No cough. I think will watch it for now. Code(s): R91.8 - Other nonspecific abnormal finding of lung field
[2017-06-23] MEDS ORDERED: Fleet Enema w/Mineral Oil 133ml RECTAL ONE (10:09)
--- NOTE | 2017-06-23 11:14 | DI ---
PORTABLE AP UPRIGHT ABDOMEN: HISTORY: 86-year-old male with bowel obstruction; status post NG tube placement. COMPARISON: 2 view abdomen earlier same date. FINDINGS: New NG tube extends into the stomach and terminates in the region of the mid/distal gastric body. Dilated, gas-filled bowel loops are noted within the upper abdomen, as before. There are patchy groundglass and reticular opacities within the lung bases bilaterally, likely with at least mild volume loss. No obvious pneumoperitoneum. IMPRESSION: New NG tube terminates in the mid/distal gastric body.
[2017-06-23] MEDS ORDERED: PHENOL/SODIUM PHENOLATE 177 ML SPRAY PO PRN (11:26)
--- NOTE | 2017-06-23 12:41 | PDOC(PROG) ---
Date and Time of Service: 06/23/2017 12 noon Interval History: Patient reports he is not really feeling any better. The NG tube was not inserted last night but it was finally inserted this morning. Some air was removed but no significant fluid. The patient has not passed gas or had a bowel movement. He has not needed any pain medication. He thinks the left side of his abdomen is down but the right side is still very distended. Further discussion with the patient has revealed he's been on laxatives in the past. He stopped those about a year ago. He does say he had a relatively normal-sized bowel movement within the last week but again none for the last 5 days. Patient had 2 Fleet enemas. They produced no results. The patient is going to get a CT of his pelvis with rectal contrast now. I discussed the reason for this with the patient and his family. If the contrast doesn't get through the sigmoid colon into the dilated proximal colon he will need to go to the operating room for colectomy with colostomy. We discussed the surgery in detail. The procedure has been discussed with the patient in complete yet simple terms including benefits, risks, and alternatives. All questions have been answered. Informed consent has been obtained. If the contrast does get through we will try to get him to pass things with some stimulation from above. Even if he fully decompresses his colon he will need a colon resection for this narrow spot in the future. If we can delay that we can hopefully do a 1 stage colectomy with end-to-end anastomosis and without a colostomy. The patient has just returned from the CT scan. The official report is pending. The rectal contrast has not advanced to the dilated proximal colon. However the bowel does not look as narrowed as it did. 3 separate runs with rectal contrast were done. The last was done with the bag hanging and the valve opened. I we will review the official report when available. The IV contrast is still in his bladder from last night. His bladder is distended. The patient's abdomen remains soft. There is minimal discomfort with palpation. The NG tube was just inserted this morning. I discussed everything with the patient and his family again. We could proceed to surgery or give it until tomorrow to see if anything breaks loose. I think it is reasonable to wait until the morning and see if anything happens. I will increase his IV fluids. I will insert a Samano catheter and start him on Reglan. We will check labs and x-ray in the morning. If nothing of significance has improved by tomorrow he will need to go to surgery for colectomy and a colostomy. The patient and family agree to proceed with this approach. I've also discussed this with the hospitalist, Dr. Munroe Objective : Data - Labs CBC and BMP: 06/23/17 05:54 06/23/17 05:54 - Imaging Imaging Details: See history of present illness regarding today's CT scan. Plain films show no definite improvement. Upright film shows the NG tube positioned in the stomach. - Vital Signs Vital Signs and I&O: Vital Signs - Last Taken Temperature 98.5 F 06/23/17 08:11 Pulse Rate 69 06/23/17 08:11 Respiratory Rate 16 06/23/17 08:11 Blood Pressure 127/66 06/23/17 08:11 Pulse Ox 92 06/23/17 08:11 Intake and Output (24hr x 4 totals) 06/21/17 06/22/17 06/23/17 06/24/17 05:59 05:59 05:59 05:59 Intake Total 800 / 800 873 / 873 Balance 800 / 800 873 / 873 Objective : Exam - General General Appearance: No Acute Distress, Cooperative - Respiratory Respiratory Exam: Clear to Auscultation - Bilaterally, Breathing Non Labored - Cardiovascular Cardiovascular Exam: RRR, No Murmur - GI/Abdominal GI/Abdominal Exam: Non Tender, Soft, Distended Additional GI/Abdominal Exam Details: The abdomen remains distended but soft. Dilated bowel is visible through the abdominal wall. There are minimal bowel tones. There is no evidence of hernias. Certainly not an acute abdomen. - Neurological Neurological Exam: Alert, Oriented x 3 - Psychiatric Psychiatric Exam: Normal Affect, Normal Mood Assessment and Plan - Patient Problems (1) Bowel obstruction Current Visit: Yes Status: Acute Priority: High Onset Date: ~06/17/17 Comment: This all appears to be a distal colonic high-grade obstruction. Most likely diverticular disease versus malignancy. As per the history of present illness we'll give him a trial until tomorrow to see if things opened up. We' ll place a Samano catheter and increase his IV fluids. We will start him on ice chips and Reglan. We'll check morning labs and x-rays. If things have not opened up I will proceed with surgery tomorrow. Code(s): K56.609 - Unspecified intestinal obstruction, unspecified as to partial versus complete obstruction Qualifiers: Intestinal obstruction type: other intestinal obstruction Intestinal obstruction extent: unspecified extent Qualified Code(s): K56.699 - Other intestinal obstruction unspecified as to partial versus complete obstruction
[2017-06-23] MEDS ORDERED: LIDOCAINE HCL 2 % 10 ML JELLY URO-JECT TOPICAL PRN (13:38)
[2017-06-23] MEDS ORDERED: Sodium Chloride 0.9% 1,000 ML PRIMARY IV ONE (13:39)
[2017-06-23] MEDS ORDERED: Metoclopramide Inj 10 MG/2 ML VIAL IVP SCH (13:45)
--- NOTE | 2017-06-23 14:02 | DI ---
History: Physician Notes: to be done with rectal gastrographin.Tech Comments: Exam: CT PELVIS With Contrast No intravenous contrast. Rectal contrast only Comparison: 06/22/2017 FINDINGS: 3 separate attempts to instill rectal contrast past the area of caliber change at the sigmoid colon without success. There is again dilation of the visualized bowel in the lower abdomen and pelvis with focal caliber change at the mid sigmoid colon and nondistended sigmoid and rectum beyond. Rectal contrast is seen downstream to the area of caliber change with some fecal material. This is again consistent with colonic obstruction with possible stricture or infiltrating neoplasm and requires further workup. May consider flexible sigmoidoscopy as warranted. Contrast material is present within nondistended bladder with irregular trabeculated appearing wall. IMPRESSION: 3 separate attempts to instill rectal contrast past the area of caliber change at the sigmoid colon without success. There is again dilation of the visualized bowel in the lower abdomen and pelvis with focal caliber change at the mid sigmoid colon and nondistended sigmoid and rectum beyond. Rectal contrast is seen downstream to the area of caliber change with some fecal material. This is again consistent with colonic obstruction with possible stricture or infiltrating neoplasm and requires further workup. May consider flexible sigmoidoscopy as warranted. Contrast material is present within nondistended bladder with irregular trabeculated appearing wall.
[2017-06-24] MEDS: Sodium Chloride 0.9% 1,000 ML PRIMARY IV SCH ×3 (02:00→14:54)
[2017-06-24 06:28] LABS: Hematocrit [HCT] 36.3 % (42.0-52.0); Hemoglobin [HGB] 11.5 g/dL (14.0-18.0); MEAN CORPUSCULAR HEMOGLOBIN 30.8 PG (27-31); MEAN CORPUSCULAR HGB CONC 31.7 g/dL (33-37); MEAN CORPUSCULAR VOLUME 97.3 FL (80-90); MEAN PLATELET VOLUME 11.1 FL (7.4-12.2); RED BLOOD COUNT 3.73 10^6/uL (4.70-6.10)
[2017-06-24 06:33] LABS: BLOOD UREA NITROGEN 29 mg/dL (7-22); BUN/CREATININE RATIO 36.25 (6-20); SERUM ALBUMIN 3.2 g/dL (3.5-4.8)
[2017-06-24 06:53] LABS: PLATELET MORPHOLOGY COMMENT NORMAL MORPHOLOGY (NORM); RBC MORPHOLOGY COMMENT NORMAL MORPHOLOGY (NORM); WBC MORPHOLOGY COMMENT NORMAL MORPHOLOGY (NORM)
[2017-06-24 06:54] LABS: BAND NEUTROPHILS % 0 % (0-10); BASOPHILS % (MANUAL) 1 % (0-1); EOSINOPHILS % (MANUAL) 0 % (0-8); MONOCYTES % (MANUAL) 7 % (0-12); NEUTROPHILS % (MANUAL) 79 % (50-80)
[2017-06-24] MEDS ORDERED: Lactated Ringers 1,000 ML PRIMARY IV ONE ×4 (08:07→11:22)
[2017-06-24] MEDS ORDERED: ROCURONIUM 10 MG/1 ML - 5 ML VIAL IVP ONE ×2 (08:31→10:27)
[2017-06-24] MEDS ORDERED: fentaNYL Inj 250 MCG/5 ML VIAL ONE (08:32)
[2017-06-24] MEDS ORDERED: PROPOFOL 10 MG/1 ML (200 MG/20 ML) VIAL IV ONE (08:32)
[2017-06-24] MEDS ORDERED: LIDOCAINE MPF 2% - 5 ML (20 MG/1 ML) ONE (08:32)
[2017-06-24] MEDS ORDERED: MIDAZOLAM 5 MG/1 ML ONE (08:32)
--- NOTE | 2017-06-24 08:41 | PDOC(PROG) ---
Date and Time of Service: 06/24/2017 8:38 AM Interval History: Subjective No change from yesterday, Mervin was attempted, he was a dose of Reglan by Dr. Strong still no bowel movement and not passing gas still abdomen is distended. No significant abdominal pain. Objective : Data - Labs CBC and BMP: 06/24/17 06:15 06/24/17 06:15 Objective : Exam - General General Appearance: No Acute Distress, Cooperative - Head Head Exam: Normal Inspection - Eye Eye Exam: Normal Appearance - ENT ENT Exam: Normal Exam - Neck Neck Exam: Normal Inspection - Respiratory Additional Respiratory Exam Details: Minimal crackers at the bases mostly clear though - Cardiovascular Cardiovascular Exam: RRR - GI/Abdominal Additional GI/Abdominal Exam Details: Abdomen is distended, firm, very sluggish bowel sounds. Nontender. - Rectal Rectal Exam: Deferred - External Exam: Deferred - Extremities Extremities Exam: Normal Inspection - Back Back Exam: Normal Inspection - Neurological Neurological Exam: Alert, Oriented x 3, No Facial Droop, Speech Intact / Clear, Moves All Extremities Equally - Psychiatric Psychiatric Exam: Normal Affect Assessment and Plan - Patient Problems (1) Bowel obstruction Current Visit: Yes Status: Acute Priority: High Onset Date: ~06/17/17 Comment: There is a plan for him to have surgery today at 9. Since this is emergency surgery I think he can proceed with surgery. Will deal with any complications post surgery. Code(s): K56.609 - Unspecified intestinal obstruction, unspecified as to partial versus complete obstruction Qualifiers: Intestinal obstruction type: other intestinal obstruction Intestinal obstruction extent: unspecified extent Qualified Code(s): K56.699 - Other intestinal obstruction unspecified as to partial versus complete obstruction (2) Hypertension Current Visit: Yes Status: Acute Comment: We'll watch his blood pressure post surgery and then will decide when it's time to restart his medications Code(s): I10 - Essential (primary) hypertension Qualifiers: Hypertension type: essential hypertension Qualified Code(s): I10 - Essential (primary) hypertension (3) Hypothyroidism Current Visit: Yes Status: Chronic Comment: We'll restart postsurgery once he can tolerate oral Code(s): E03.9 - Hypothyroidism, unspecified Qualifiers: Hypothyroidism type: acquired Qualified Code(s): E03.9 - Hypothyroidism, unspecified (4) Ground glass opacity present on imaging of lung Current Visit: Yes Status: Acute Comment: Oxygen need is the same, he is denying chest pain, shortness of breath , and no cough. White count normalized and no fever. Will watch. Code(s): R91.8 - Other nonspecific abnormal finding of lung field
[2017-06-24] MEDS ORDERED: LIDOCAINE W/ SODIUM BICARB 0.5 ML SYR ONE (08:44)
[2017-06-24] MEDS ORDERED: NORMAL SALINE 10 ML SYRINGE FLUSH IVP PRN ×2 (08:59→12:34)
[2017-06-24] MEDS ORDERED: LIDOCAINE W/ SODIUM BICARB 0.5 ML SYR SUBD PRN (08:59)
[2017-06-24] MEDS ORDERED: Ertapenem Inj 1 GM in Sodium Chloride 0.9% 100 ML IV SCH (09:00)
[2017-06-24] MEDS ORDERED: ERTAPENEM 1 GM VIAL ONE (09:00)
[2017-06-24] MEDS ORDERED: Lactated Ringers 1,000 ML PRIMARY IV SCH (09:00)
[2017-06-24] MEDS ORDERED: BUPIVACAINE 0.5% W/EPI MPF -30 ML VIAL IV ONE (09:00)
[2017-06-24] MEDS ORDERED: Sodium Chloride 0.9% 100 ML IV ONE (09:01)
--- NOTE | 2017-06-24 09:04 | PDOC(PROG) ---
Date and Time of Service: 06/24/2017 9 AM Interval History: Patient had some cramping last evening which resolved. The Reglan was stopped. No flatus or bowel movement. Remains distended. We need to proceed with OR today as previously discussed. Objective : Data - Labs CBC and BMP: 06/24/17 06:15 06/24/17 06:15 - Vital Signs Vital Signs and I&O: Vital Signs - Last Taken Temperature 98.8 F 06/24/17 07:46 Pulse Rate 72 06/24/17 07:46 Respiratory Rate 20 06/24/17 07:46 Blood Pressure 167/81 06/24/17 07:46 Pulse Ox 92 06/24/17 07:46 Intake and Output (24hr x 4 totals) 06/22/17 06/23/17 06/24/17 06/25/17 05:59 05:59 05:59 05:59 Intake Total 2724 / 2724 3694 / 3694 663 / 663 Output Total 850 / 850 500 / 500 Balance 2724 / 2724 2844 / 2844 163 / 163 Objective : Exam - General General Appearance: Cooperative, Mild Distress - Respiratory Respiratory Exam: Clear to Auscultation - Bilaterally, Breathing Non Labored - Cardiovascular Cardiovascular Exam: RRR, No Murmur - GI/Abdominal GI/Abdominal Exam: Firm, Distended Additional GI/Abdominal Exam Details: Few bowel tones. Remains distended. Minimal tenderness. Assessment and Plan - Patient Problems (1) Bowel obstruction Current Visit: Yes Status: Acute Priority: High Onset Date: ~06/17/17 Comment: Distal colonic released obstruction. No progress with conservative therapy. Proceed with colectomy and colostomy.The procedure has been discussed with the patient in complete yet simple terms including benefits, risks, and alternatives. All questions have been answered. Informed consent has been obtained. Code(s): K56.609 - Unspecified intestinal obstruction, unspecified as to partial versus complete obstruction Qualifiers: Intestinal obstruction type: other intestinal obstruction Intestinal obstruction extent: unspecified extent Qualified Code(s): K56.699 - Other intestinal obstruction unspecified as to partial versus complete obstruction
[2017-06-24] MEDS ORDERED: HYDROmorphone 2 MG/1 ML ONE (10:02)
[2017-06-24] MEDS ORDERED: KETAMINE 100 MG/1 ML - 5 ML ONE (10:09)
[2017-06-24] MEDS ORDERED: ONDANSETRON 4 MG/2 ML VIAL ONE (11:24)
[2017-06-24] MEDS ORDERED: BUPivacaine Liposome/PF (Exparel) Inj 20ml vial INFIL ONE (11:25)
[2017-06-24] MEDS ORDERED: KETOROLAC 30 MG/1 ML VIAL ONE (11:26)
[2017-06-24] MEDS ORDERED: Sodium Chloride 0.9% vial 10 ML ONE (11:36)
[2017-06-24] MEDS ORDERED: SUGAMMADEX SODIUM 200 MG/2 ML VIAL IV ONE (11:43)
[2017-06-24] MEDS ORDERED: HYDROmorphone 2 MG/1 ML IVP PRN ×3 (12:34→15:53)
[2017-06-24] MEDS ORDERED: PROMETHAZINE 25 MG/1 ML VIAL IM PRN (12:34)
[2017-06-24] MEDS ORDERED: Nalbuphine Inj 20 MG/ML Ampule IVP PRN (12:34)
--- NOTE | 2017-06-24 12:34 | CRNA.PROGR ---
Anesthesia Recovery Phase I - Post Anesthesia Evaluation Patient's Condition on Arrival in Phase I: Stable Pain Level: 0
--- NOTE | 2017-06-24 12:34 | GEN.OPNOTE ---
Operative Note Surgery Date: 06/24/17 Preoperative Diagnosis: Distal sigmoid colon obstruction. Presumed diverticular disease. Postoperative Diagnosis: Distal sigmoid colon obstruction. Diverticular disease. External fibrosis with narrowing. No tumor. Procedure: Sigmoid colectomy with end colostomy and closure of the distal segment. (Gustavo procedure). Surgeon: Kalen Strong MD Instrument Installer: Keshawn Britton MD Anesthesia Provider: Talon Simpson CRNA Anesthesia Type: General Estimated Blood Loss (mL): 250 Fluids: 2000 mL of crystalloid. 1 g of IV Invanz at the start of the procedure. 15 mg of IV Toradol at the end of the procedure. Pathology: Specimen to pathology included the resected sigmoid colon as well as the end of the bowel at the ostomy site. There was also a small piece of omentum. Indications: Patient is an 86-year-old male who presented Sunday night with a history of no bowel movements or gas for for 5 days. X-rays showed a distal tapering his sigmoid colon. He was admitted. NG tube was attempted but was not placed until Sunday.. He was hydrated. The next morning he had a CT scan of his pelvis with Gastrografin. The dye did not make it to the narrowing but the bowel looked of relatively adequate caliber. There were diverticuli and decreased bowel caliber. Because his NG tube really been in for a couple of hours I thought a trial of conservation therapy was reasonable. I tried to give him 24 hours to see if things would open up but they didn't. He was taken to the operating room for decompression for a distal sigmoid colon obstruction Findings: Narrowing of the distal sigmoid colon. Diverticulosis. The sigmoid colon the pelvis was extremely tortuous and scarred down. There was external fibrosis. Hard stool was noted in the distal sigmoid colon. No other intra-abdominal pathology. Complications: None. Operative Summary: The patient was taken to the operating suite placed in the operating table in the supine position. Following induction of general anesthetic the abdomen was prepped and draped in a sterile fashion. A surgical timeout was done. A midline incision was made. This was from well above the umbilicus to the pubic symphysis. The subcutaneous tissue and midline fascia were incised with electrocautery. The peritoneum was elevated and incised. An Hudson wound retractor was placed. There was significant dilation of the distal small bowel as well as the entire colon. The small bowel was run from the ligament of Treitz to the cecum. There was a Meckel's diverticulum in the distal small bowel . The cecum was dilated. The appendix appeared normal. The entire colon was dilated to the transition point in the pelvis. Palpation of the remainder of the abdomen revealed only dilated small bowel and colon. In the pelvis the distal sigmoid colon was very tortuous with hard stool and some external scar tissue. Attention was turned to the pelvis. The left colonic lateral attachments were taken down sharply. The dissection was right on the sigmoid colon. It was freed up from the pelvis both sharply and bluntly until it could be straightened. It seemed the main problem was tight kinking of the colon from external scar tissue and diverticulosis. There was also very hard stool throughout this section of the bowel. At the area of the high rectum the transection site was chosen. The paracolonic fat was cleared from the bowel. A linear 60 mm stapler was placed across the distal colon, closed, and fired. A bowel clamp was placed on the proximal bowel. The bowel was transected. The stapler was removed. The mesocolon was taken down by serially clamping dividing and ligating the mesocolon until there was adequate length to create a colostomy. The bowel was full of stool and air. I was able to extend it over the lateral side of the abdominal cavity. The sigmoid colon was resected. The stool and air were allowed to flow from the descending colon. Once it was adequately decompressed the colon was clamped and transected with a 75 mm linear stapler. The end of the bowel was rinsed off. All personnel then changed gowns and gloves. The descending colon was then returned to the abdominal cavity. Extensive irrigation was done at this time. The entire dissection was done close to the bowel as this appeared to be a benign process. Hemostasis was assured. The left ureter was identified and was intact. The course of the right ureter could be seen and was not near the dissection. Having resected the bowel the distal rectal stump was secured to the pelvic sidewall with a 2-0 Prolene suture. Extensive irrigation was done. The small bowel was placed into a relative anatomic position and covered with omentum. There was adequate length to perform a colostomy and attention was turned to the abdominal wall. A match[place] band of skin was removed as well as a plug of adipose tissue. The abdominal fascia was cut in a cruciate fashion. This was just at the lateral border of the rectus muscle. Posterior sheath was incised. The descending colon was passed through the abdominal wall. Final irrigation and suctioning were performed. Intestines were placed in a relative anatomic position and covered with omentum. The midline fascia was closed with running # 1 Prolene. The wound was extensively irrigated. Exparel was injected into the subcutaneous tissue. The wound was closed with a stapling device. An appropriate dressing was placed. Attention was turned to the stoma site. The staple line was excised. The colostomy was matured with 3-0 Vicryl sutures in the usual fashion. An appropriate appliance was placed. The patient tolerated the entire procedure well without complication. He was taken to recovery room in stable but guarded condition. All counts were correct.
--- NOTE | 2017-06-24 12:34 | CRNA.PROGR ---
Anesthesia Time - - Start date: 06/24/17 End date: 06/24/17 - Procedure/Recovery Time Anesthesia : Time In: 09:25 Anesthesia : Time Out: 12:30 Anesthesia : Total Time: 185 - Total Anesthesia Time Total Anesthesia Time (minutes): 185 - Other Weight: 77.655 kg Height: 5 ft 11 in Body Mass Index (BMI): 23.8 Physical Status: P3 Anesthesia Type: General Anesthesia : ET
[2017-06-24] MEDS ORDERED: ONDANSETRON 4 MG/2 ML VIAL IVP PRN (14:03)
[2017-06-24] MEDS: D5-LR + 20mEq KCL 1,000 ML PRIMARY IV SCH ×2 (14:34→19:43)
[2017-06-24] MEDS: KETOROLAC 15 MG/1 ML VIAL IVP SCH ×2 (17:19→23:53)
[2017-06-24] MEDS ORDERED: Sodium Chloride 0.9% 500 ML PRIMARY IV ONE (19:31)
--- NOTE | 2017-06-24 22:40 | DI ---
XR ABDOMEN (KUB) FLAT [place],06/22/2017 9:43 PM: Clinical History: Partial obstruction. Previous Exam: Same date one hour prior. Findings: A single upright view of the upper abdomen is obtained to evaluate positioning of a nasogastric tube. The nasogastric tube is in good position in the expected region of the stomach. There is airspace disease within both lung bases. There is a large amount of air throughout the colon . Impression: 1. Bibasilar airspace disease could represent early pneumonia or atelectasis. 2. Nasogastric tube in good position.
[2017-06-25] MEDS: KETOROLAC 15 MG/1 ML VIAL IVP SCH ×4 (04:43→23:51)
[2017-06-25] MEDS: D5-LR + 20mEq KCL 1,000 ML PRIMARY IV SCH ×4 (04:43→20:13)
[2017-06-25 06:13] LABS: Hematocrit [HCT] 33.5 % (42.0-52.0); Hemoglobin [HGB] 10.3 g/dL (14.0-18.0); MEAN CORPUSCULAR HEMOGLOBIN 30.3 PG (27-31); MEAN CORPUSCULAR HGB CONC 30.7 g/dL (33-37); MEAN CORPUSCULAR VOLUME 98.5 FL (80-90); MEAN PLATELET VOLUME 11.4 FL (7.4-12.2)
[2017-06-25 06:22] LABS: BLOOD UREA NITROGEN 24 mg/dL (7-22); BUN/CREATININE RATIO 34.28 (6-20); SERUM ALBUMIN 2.5 g/dL (3.5-4.8)
[2017-06-25 06:32] LABS: BAND NEUTROPHILS % 1 % (0-10); BASOPHILS % (MANUAL) 0 % (0-1); EOSINOPHILS % (MANUAL) 0 % (0-8); MONOCYTES % (MANUAL) 6 % (0-12); NEUTROPHILS % (MANUAL) 69 % (50-80); PLATELET MORPHOLOGY COMMENT NORMAL MORPHOLOGY (NORM); RBC MORPHOLOGY COMMENT NORMAL MORPHOLOGY (NORM); WBC MORPHOLOGY COMMENT NORMAL MORPHOLOGY (NORM)
[2017-06-25] MEDS: Pantoprazole Inj 40 MG in Normal Saline Flush 10 ML IVP SCH (07:14)
--- NOTE | 2017-06-25 07:54 | PDOC(PROG) ---
Date and Time of Service: 06/25/2017 7:51 AM Interval History: Subjective Pain seemed to be under control. Denying other symptoms. Stoma seems to be functioning. Objective : Data - Labs CBC and BMP: 06/25/17 06:05 06/25/17 06:05 Objective : Exam - General General Appearance: No Acute Distress, Cooperative - Head Head Exam: Normal Inspection Additional Head Exam Details: NG tube in place - Eye Eye Exam: Normal Appearance - ENT ENT Exam: Normal Exam - Neck Neck Exam: Normal Inspection - Respiratory Respiratory Exam: Clear to Auscultation - Bilaterally - Cardiovascular Cardiovascular Exam: RRR - GI/Abdominal Additional GI/Abdominal Exam Details: Abdomen is soft, dressing applied, stoma seems to be functioning. - Rectal Rectal Exam: Deferred - External Exam: Deferred - Extremities Extremities Exam: Normal Inspection - Back Back Exam: Normal Inspection - Neurological Neurological Exam: Alert, Oriented x 3, CN II-XII Intact, Moves All Extremities Equally - Psychiatric Psychiatric Exam: Normal Affect Assessment and Plan - Patient Problems (1) Bowel obstruction Current Visit: Yes Status: Acute Priority: High Onset Date: ~06/17/17 Comment: he is status post Gustavo's procedure, management per Dr. Strong. Code(s): K56.609 - Unspecified intestinal obstruction, unspecified as to partial versus complete obstruction Qualifiers: Intestinal obstruction type: other intestinal obstruction Intestinal obstruction extent: unspecified extent Qualified Code(s): K56.699 - Other intestinal obstruction unspecified as to partial versus complete obstruction (2) Hypertension Current Visit: Yes Status: Acute Comment: I think will watch his blood pressure now, blood pressure numbers acceptable now Code(s): I10 - Essential (primary) hypertension Qualifiers: Hypertension type: essential hypertension Qualified Code(s): I10 - Essential (primary) hypertension (3) Hypothyroidism Current Visit: Yes Status: Chronic Comment: We'll resume once he is able to take oral medications Code(s): E03.9 - Hypothyroidism, unspecified Qualifiers: Hypothyroidism type: acquired Qualified Code(s): E03.9 - Hypothyroidism, unspecified (4) Ground glass opacity present on imaging of lung Current Visit: Yes Status: Acute Comment: This need follow-up later on as an outpatient, his oxygen need is only 1 L now. He is denying shortness of breath, cough. Code(s): R91.8 - Other nonspecific abnormal finding of lung field
[2017-06-25] MEDS: PARoxetine Tab 20 MG TAB PO SCH (08:35)
[2017-06-25] MEDS: Ertapenem Inj 1 GM in Sodium Chloride 0.9% 100 ML IV SCH (08:39)
--- NOTE | 2017-06-25 10:13 | PDOC(PROG) ---
Subjective Post Op Day: 1 Pain Management: Toradol Samano Catheter: Yes Flatus: Yes Diet: NPO Ambulating: Yes Date and Time of Service: 06/25/2017-patient seen at 9 AM Interval History: Patient is awake, alert, and cooperative. Reports he feels better than preop. Denies any significant abdominal pain. His throat is bothering him from the NG tube. He is feeling some rumbling in his lower abdomen. No specific complaints. Objective : Data - Labs CBC and BMP: 06/25/17 06:05 06/25/17 06:05 - Vital Signs Vital Signs and I&O: Vital Signs - Last Taken Temperature 98.8 F 06/25/17 07:28 Pulse Rate 68 06/25/17 07:28 Respiratory Rate 17 06/25/17 07:28 Blood Pressure 141/69 06/25/17 07:28 Pulse Ox 99 06/25/17 07:28 Intake and Output (24hr x 4 totals) 06/23/17 06/24/17 06/25/17 06/26/17 05:59 05:59 05:59 05:59 Intake Total 2724 / 2724 3694 / 3694 5332 / 5332 60 / 60 Output Total 850 / 850 3500 / 3500 350 / 350 Balance 2724 / 2724 2844 / 2844 1832 / 1832 -290 / -290 Objective : Exam - General General Appearance: No Acute Distress, Cooperative - Respiratory Respiratory Exam: Clear to Auscultation - Bilaterally, Breathing Non Labored - Cardiovascular Cardiovascular Exam: RRR, No Murmur - GI/Abdominal GI/Abdominal Exam: Non Distended, Soft Additional GI/Abdominal Exam Details: Bowel tones are present today. Abdomen is much less distended than previously. The dressing is clean and dry and intact. The stoma is pink and somewhat edematous. There is been approximately 2 L out since surgery. There is some diffuse mild tenderness. No peritoneal irritation. - Additional Exam Details: The penis is edematous with a Samano in place. - Extremities Extremities Exam: No Edema Present - Neurological Neurological Exam: Alert, Oriented x 3 - Psychiatric Psychiatric Exam: Normal Affect, Normal Mood Assessment and Plan - Patient Problems (1) Status post partial resection of colon Current Visit: Yes Status: Acute Priority: High Onset Date: 06/24/17 Comment: Doing very well post partial colectomy and colostomy. Colon is decompressing into the stoma bag. No postoperative surgical problems at this time. Continue postoperative care. We will remove the NG tube, decrease the IV fluids, and start small amounts of clear liquids. Check labs in the morning and continue postoperative monitoring. Code(s): Z90.49 - Acquired absence of other specified parts of digestive tract (2) Colonic obstruction Current Visit: Yes Status: Acute Priority: Low Onset Date: ~06/17/17 Comment: Resolved with the recent surgery. It appeared to be benign scarring and diverticular disease. No evidence of tumor. Code(s): K56.609 - Unspecified intestinal obstruction, unspecified as to partial versus complete obstruction
[2017-06-26] MEDS: D5-LR + 20mEq KCL 1,000 ML PRIMARY IV SCH ×3 (03:03→10:09)
[2017-06-26] MEDS: LEVOTHYROXINE 75 MCG TABLET PO SCH (05:37)
[2017-06-26] MEDS: KETOROLAC 15 MG/1 ML VIAL IVP SCH ×4 (05:37→23:27)
[2017-06-26 06:12] LABS: BASOPHILS # (AUTO) 0.02 10*3/UL; BASOPHILS % (AUTO) 0.3 % (0-1); EOSINOPHILS # (AUTO) 0.18 10*3/UL; EOSINOPHILS % (AUTO) 2.5 % (0-8); Hematocrit [HCT] 33.3 % (42.0-52.0); Hemoglobin [HGB] 10.5 g/dL (14.0-18.0); LYMPHOCYTES # (AUTO) 0.87 10*3/uL; MEAN CORPUSCULAR HEMOGLOBIN 30.9 PG (27-31); MEAN CORPUSCULAR HGB CONC 31.5 g/dL (33-37); MEAN CORPUSCULAR VOLUME 97.9 FL (80-90); MEAN PLATELET VOLUME 11.5 FL (7.4-12.2); MONOCYTES # (AUTO) 0.94 10*3/UL (0.3-0.8); NEUTROPHILS # (AUTO) 5.17 10*3/UL; NEUTROPHILS % (AUTO) 71.6 % (50-80)
[2017-06-26 06:17] LABS: BLOOD UREA NITROGEN 17 mg/dL (7-22); BUN/CREATININE RATIO 24.28 (6-20); SERUM ALBUMIN 2.4 g/dL (3.5-4.8)
[2017-06-26 06:41] LABS: PLATELET MORPHOLOGY COMMENT NORMAL MORPHOLOGY (NORM); RBC MORPHOLOGY COMMENT NORMAL MORPHOLOGY (NORM); WBC MORPHOLOGY COMMENT NORMAL MORPHOLOGY (NORM)
[2017-06-26] MEDS: Pantoprazole Inj 40 MG in Normal Saline Flush 10 ML IVP SCH (07:22)
--- NOTE | 2017-06-26 08:37 | PDOC(PROG) ---
Date and Time of Service: 06/26/2017 8:36 AM Interval History: Subjective Patient denying significant symptoms. There is no significant abdominal pain. No shortness of breath. No nausea. Objective : Data - Labs CBC and BMP: 06/26/17 05:54 06/26/17 05:54 Objective : Exam - General General Appearance: No Acute Distress, Cooperative - Head Head Exam: Normal Inspection - Eye Eye Exam: Normal Appearance - Neck Neck Exam: Normal Inspection - Respiratory Respiratory Exam: Clear to Auscultation - Bilaterally - Cardiovascular Cardiovascular Exam: RRR - GI/Abdominal GI/Abdominal Exam: Normal Bowel Sounds, Non Distended, Soft Additional GI/Abdominal Exam Details: No significant tenderness. Dressing applied to the wound. Colostomy in place. - Rectal Rectal Exam: Deferred - Extremities Extremities Exam: Normal Inspection - Back Back Exam: Normal Inspection - Neurological Neurological Exam: Alert, Oriented x 3, CN II-XII Intact, No Facial Droop, Speech Intact / Clear, Moves All Extremities Equally - Psychiatric Psychiatric Exam: Normal Affect - Integumentary Integumentary Exam: Normal Color Assessment and Plan - Patient Problems (1) Bowel obstruction Current Visit: Yes Status: Acute Priority: High Onset Date: ~06/17/17 Comment: He is status post surgery day 2. Management per Dr. Strong. There is Growth of staph epidermidis in the urine, I don't think this is clinically significant. There is no fever, no urinary symptoms prior to the surgery his symptoms were more related to the bowel obstruction. His white count is normal. I think will watch it. Code(s): K56.609 - Unspecified intestinal obstruction, unspecified as to partial versus complete obstruction Qualifiers: Intestinal obstruction type: other intestinal obstruction Intestinal obstruction extent: unspecified extent Qualified Code(s): K56.699 - Other intestinal obstruction unspecified as to partial versus complete obstruction (2) Hypertension Current Visit: Yes Status: Acute Comment: Blood pressure is going up. Will watch it today and then will consider restarting his medication either today or tomorrow. Code(s): I10 - Essential (primary) hypertension Qualifiers: Hypertension type: essential hypertension Qualified Code(s): I10 - Essential (primary) hypertension (3) Hypothyroidism Current Visit: Yes Status: Chronic Comment: Same meds Code(s): E03.9 - Hypothyroidism, unspecified Qualifiers: Hypothyroidism type: acquired Qualified Code(s): E03.9 - Hypothyroidism, unspecified (4) Ground glass opacity present on imaging of lung Current Visit: Yes Status: Acute Comment: Need follow-up later on as an outpatient Code(s): R91.8 - Other nonspecific abnormal finding of lung field (5) Hypokalemia Current Visit: Yes Status: Acute Comment: will Put him on potassium replacement Code(s): E87.6 - Hypokalemia (6) Hypernatremia Current Visit: Yes Status: Acute Comment: We'll encourage him to drink free water. I think probably we can advance his diet more today but I will leave it to Dr. Strong. Code(s): E87.0 - Hyperosmolality and hypernatremia
[2017-06-26] MEDS ORDERED: POTASSIUM CHLORIDE 20 MEQ TAB PO SCH (09:00)
[2017-06-26] MEDS: Ertapenem Inj 1 GM in Sodium Chloride 0.9% 100 ML IV SCH (09:09)
[2017-06-26] MEDS: NORMAL SALINE 10 ML SYRINGE FLUSH IVP PRN ×3 (09:11→17:01)
[2017-06-26] MEDS: PARoxetine Tab 20 MG TAB PO SCH (09:12)
--- NOTE | 2017-06-26 09:29 | PDOC(PROG) ---
Subjective Post Op Day: 2 Pain Management: Toradol Samano Catheter: Yes Flatus: Yes Diet: Clear Liquids Ambulating: Yes Date and Time of Service: 06/26/2017 9:20 AM Interval History: Overall doing very well. Pain is well controlled. No complaints or problems. Feels better without the NG tube. Not feeling much rumbling in his abdomen. No nausea or vomiting. Not really hungry but would like to eat more. He is ambulating regularly. Objective : Data - Labs CBC and BMP: 06/26/17 05:54 06/26/17 05:54 - Vital Signs Vital Signs and I&O: Vital Signs - Last Taken Temperature 98.0 F 06/26/17 04:24 Pulse Rate 62 06/26/17 07:00 Respiratory Rate 18 06/26/17 07:00 Blood Pressure 163/72 06/26/17 04:24 Pulse Ox 98 06/26/17 07:00 Intake and Output (24hr x 4 totals) 06/24/17 06/25/17 06/26/17 06/27/17 05:59 05:59 05:59 05:59 Intake Total 3694 / 3694 5332 / 5332 1383 / 1383 1838 / 1838 Output Total 850 / 850 3500 / 3500 2800 / 2800 350 / 350 Balance 2844 / 2844 1832 / 1832 -1417 / -1417 1488 / 1488 Objective : Exam - General General Appearance: No Acute Distress, Cooperative - Respiratory Respiratory Exam: Clear to Auscultation - Bilaterally, Breathing Non Labored - Cardiovascular Cardiovascular Exam: RRR, No Murmur - GI/Abdominal GI/Abdominal Exam: Non Distended, Soft, Hypoactive Bowel Sounds Additional GI/Abdominal Exam Details: Stoma is viable and functioning. Dressing is clean and dry and intact. Abdomen is soft with minimal tenderness except at the incision site. Penile edema. We'll need to leave the Samano a little longer. - Neurological Neurological Exam: Alert, Oriented x 3 - Psychiatric Psychiatric Exam: Normal Affect, Normal Mood Assessment and Plan - Patient Problems (1) Status post partial resection of colon Current Visit: Yes Status: Acute Priority: High Onset Date: 06/24/17 Comment: Doing very well. Stable. Will advance to a full liquid diet. We'll decrease his IV fluids and saline locked them when he is taking adequate by mouth. His potassium is low and is being replaced by Dr. Munroe. We'll check an a.m. basic metabolic panel. Otherwise continue postoperative management. Code(s): Z90.49 - Acquired absence of other specified parts of digestive tract (2) Colonic obstruction Current Visit: Yes Status: Acute Priority: Low Onset Date: ~06/17/17 Comment: Resolved with above surgery. Code(s): K56.609 - Unspecified intestinal obstruction, unspecified as to partial versus complete obstruction
[2017-06-26] MEDS: POTASSIUM CHLORIDE 20 MEQ TAB PO SCH ×2 (15:57→21:29)
[2017-06-26] MEDS: Simvastatin Tab 10 MG TAB PO SCH (21:29)
[2017-06-27] MEDS: NORMAL SALINE 10 ML SYRINGE FLUSH IVP PRN (05:33)
[2017-06-27] MEDS: LEVOTHYROXINE 75 MCG TABLET PO SCH (05:34)
[2017-06-27] MEDS: KETOROLAC 15 MG/1 ML VIAL IVP SCH ×4 (05:34→23:52)
[2017-06-27] MEDS: Pantoprazole Inj 40 MG in Normal Saline Flush 10 ML IVP SCH (06:06)
[2017-06-27 06:48] LABS: BASOPHILS # (AUTO) 0.03 10*3/UL; BASOPHILS % (AUTO) 0.3 % (0-1); EOSINOPHILS # (AUTO) 0.35 10*3/UL; EOSINOPHILS % (AUTO) 3.7 % (0-8); Hematocrit [HCT] 32.6 % (42.0-52.0); Hemoglobin [HGB] 10.3 g/dL (14.0-18.0); LYMPHOCYTES # (AUTO) 1.27 10*3/uL; MEAN CORPUSCULAR HGB CONC 31.6 g/dL (33-37); MEAN CORPUSCULAR VOLUME 98.2 FL (80-90); MEAN PLATELET VOLUME 10.8 FL (7.4-12.2); MONOCYTES # (AUTO) 0.97 10*3/UL (0.3-0.8); MONOCYTES % (AUTO) 10.4 % (5-15); NEUTROPHILS # (AUTO) 6.66 10*3/UL; NEUTROPHILS % (AUTO) 71.3 % (50-80); RED BLOOD COUNT 3.32 10^6/uL (4.70-6.10)
[2017-06-27 06:51] LABS: PLATELET MORPHOLOGY COMMENT NORMAL MORPHOLOGY (NORM); RBC MORPHOLOGY COMMENT NORMAL MORPHOLOGY (NORM); WBC MORPHOLOGY COMMENT NORMAL MORPHOLOGY (NORM)
[2017-06-27 06:57] LABS: BLOOD UREA NITROGEN 15 mg/dL (7-22); SERUM ALBUMIN 2.7 g/dL (3.5-4.8)
[2017-06-27] MEDS ORDERED: Sodium Chloride 0.9% 500 ML PRIMARY IV SCH (08:00)
[2017-06-27] MEDS: PARoxetine Tab 20 MG TAB PO SCH (08:59)
[2017-06-27] MEDS: Spironolactone Tab 25 MG TAB PO SCH (08:59)
[2017-06-27] MEDS ORDERED: POTASSIUM CHLORIDE 20 MEQ TAB PO SCH ×3 (09:00→21:00)
--- NOTE | 2017-06-27 09:24 | PDOC(PROG) ---
Date and Time of Service: 06/27/2017 9:20 AM Interval History: Subjective Patient is denying complaint. I did check his colostomy and his output is 2900s liquid stool over 24 hours. Objective : Data - Labs CBC and BMP: 06/27/17 06:35 06/27/17 06:35 Objective : Exam - General General Appearance: No Acute Distress, Cooperative - Head Head Exam: Normal Inspection, Atraumatic - Eye Eye Exam: Normal Appearance - ENT ENT Exam: Normal Exam - Neck Neck Exam: Normal Inspection - Respiratory Respiratory Exam: Clear to Auscultation - Bilaterally - Cardiovascular Cardiovascular Exam: RRR - GI/Abdominal GI/Abdominal Exam: Normal Bowel Sounds Additional GI/Abdominal Exam Details: His abdomen is soft, no significant tenderness. Colostomy is in place. - Rectal Rectal Exam: Deferred - External Exam: Deferred - Extremities Extremities Exam: Normal Inspection - Back Back Exam: Normal Inspection - Neurological Neurological Exam: Alert, Oriented x 3, CN II-XII Intact, No Facial Droop, Speech Intact / Clear, Moves All Extremities Equally - Psychiatric Psychiatric Exam: Normal Affect Assessment and Plan - Patient Problems (1) Bowel obstruction Current Visit: Yes Status: Acute Priority: High Onset Date: ~06/17/17 Comment: He is status post surgery. Management per Dr. Strong. His colostomy output is 2900. He is on full liquid , I think probably we can advance his diet but I leave it to Dr. Strong. I think maybe if he has more solid diet maybe his colostomy output will change to more solid form. Code(s): K56.609 - Unspecified intestinal obstruction, unspecified as to partial versus complete obstruction Qualifiers: Intestinal obstruction type: other intestinal obstruction Intestinal obstruction extent: unspecified extent Qualified Code(s): K56.699 - Other intestinal obstruction unspecified as to partial versus complete obstruction (2) Hypertension Current Visit: Yes Status: Acute Comment: Blood pressure is higher I think I'll restart his Aldactone. Code(s): I10 - Essential (primary) hypertension Qualifiers: Hypertension type: essential hypertension Qualified Code(s): I10 - Essential (primary) hypertension (3) Hypothyroidism Current Visit: Yes Status: Chronic Comment: Same med Code(s): E03.9 - Hypothyroidism, unspecified Qualifiers: Hypothyroidism type: acquired Qualified Code(s): E03.9 - Hypothyroidism, unspecified (4) Ground glass opacity present on imaging of lung Current Visit: Yes Status: Acute Comment: Need follow-up later on as an outpatient Code(s): R91.8 - Other nonspecific abnormal finding of lung field (5) Hypokalemia Current Visit: Yes Status: Acute Comment: Potassium is lower today compared to yesterday. It's down to 2.6 will increase his oral potassium. I gave him a dose of IV potassium. I think the reason is just because the output from the colostomy is causing his potassium to drop. We'll restart his Aldactone maybe that would help to conserve potassium. Recheck it again today and will see if we need to give him more IV. Code(s): E87.6 - Hypokalemia (6) Hypernatremia Current Visit: Yes Status: Acute Comment: Encourage oral free water. Code(s): E87.0 - Hyperosmolality and hypernatremia
[2017-06-27] MEDS: Ertapenem Inj 1 GM in Sodium Chloride 0.9% 100 ML IV SCH (11:37)
--- NOTE | 2017-06-27 12:09 | PDOC(PROG) ---
Subjective Post Op Day: 3 Pain Management: Toradol Samano Catheter: Yes Flatus: Yes Diet: full liquid Ambulating: Yes Date and Time of Service: 06/27/2017 12 noon Interval History: Continues to do very well. No complaints of pain. Has had no pain medications other than the Toradol. Feels like he could eat more. No nausea or vomiting. The stoma is functioning and has a high output of liquid. Patient is ambulating. Feels well. Objective : Data - Labs CBC and BMP: 06/27/17 06:35 06/27/17 06:35 - Vital Signs Vital Signs and I&O: Vital Signs - Last Taken Temperature 98.4 F 06/27/17 09:00 Pulse Rate 70 06/27/17 11:00 Respiratory Rate 20 06/27/17 09:00 Blood Pressure 144/73 06/27/17 09:00 Pulse Ox 97 06/27/17 11:00 Intake and Output (24hr x 4 totals) 06/25/17 06/26/17 06/27/17 06/28/17 05:59 05:59 05:59 05:59 Intake Total 5332 / 5332 1383 / 1383 4563 / 4563 720 / 720 Output Total 3500 / 3500 2800 / 2800 3825 / 3825 800 / 800 Balance 1832 / 1832 -1417 / -1417 738 / 738 -80 / -80 Objective : Exam - General General Appearance: No Acute Distress, Cooperative - Respiratory Respiratory Exam: Clear to Auscultation - Bilaterally, Breathing Non Labored - Cardiovascular Cardiovascular Exam: RRR, No Murmur - GI/Abdominal GI/Abdominal Exam: Non Distended, Soft, Diminished Bowel Sounds Additional GI/Abdominal Exam Details: Incision looks good. The stoma is edematous but functioning. It is pink and viable. Stoma bag needs to be changed. Patient continues to have penis edema. We'll need to leave the catheter a little longer. - Neurological Neurological Exam: Alert, Oriented x 3 - Psychiatric Psychiatric Exam: Normal Affect, Normal Mood Assessment and Plan - Patient Problems (1) Status post partial resection of colon Current Visit: Yes Status: Acute Priority: High Onset Date: 06/24/17 Comment: Doing very well. Advanced to a low residue diet. Continue postoperative care. Continue ostomy teaching. Stoma appliance needs to be changed today. Discussed with the nurse. We will elevate the penis and scrotum for penile edema. Code(s): Z90.49 - Acquired absence of other specified parts of digestive tract (2) Colonic obstruction Current Visit: Yes Status: Acute Priority: Low Onset Date: ~06/17/17 Comment: Resolved with his colectomy. Code(s): K56.609 - Unspecified intestinal obstruction, unspecified as to partial versus complete obstruction (3) Hypokalemia Current Visit: Yes Status: Acute Comment: Per the hospitalist. Code(s): E87.6 - Hypokalemia
[2017-06-27] MEDS: Simvastatin Tab 10 MG TAB PO SCH (20:17)
[2017-06-28] MEDS: LEVOTHYROXINE 75 MCG TABLET PO SCH (05:32)
[2017-06-28] MEDS: KETOROLAC 15 MG/1 ML VIAL IVP SCH ×2 (05:32→13:01)
[2017-06-28] MEDS: Spironolactone Tab 25 MG TAB PO SCH (07:09)
[2017-06-28 07:58] LABS: BLOOD UREA NITROGEN 17 mg/dL (7-22); BUN/CREATININE RATIO 24.28 (6-20)
[2017-06-28] MEDS ORDERED: POTASSIUM CHLORIDE 20 MEQ TAB PO SCH (09:00)
[2017-06-28] MEDS: PARoxetine Tab 20 MG TAB PO SCH (09:13)
[2017-06-28] MEDS: OMEPRAZOLE 20 MG CAPSULE PO SCH (09:13)
[2017-06-28] MEDS: NORMAL SALINE 10 ML SYRINGE FLUSH IVP PRN (09:14)
[2017-06-28] MEDS: Ertapenem Inj 1 GM in Sodium Chloride 0.9% 100 ML IV SCH (09:14)
[2017-06-28] MEDS ORDERED: Magnesium Sulfate 2gm (Premix) 2 GM/50 ML BAG IV ONE (11:08)
[2017-06-28] MEDS ORDERED: Influenza 17-18 Vaccine (6mo+) Quad 60mcg/0.5ml PF IM ONE ×2 (12:30→20:47)
[2017-06-28] MEDS ORDERED: HYDROcodone-APAP 5 MG -325 MG TABLET PO PRN (12:32)
--- NOTE | 2017-06-28 13:15 | PDOC(PROG) ---
Subjective Post Op Day: 4 Pain Management: Toradol Samano Catheter: Yes Flatus: Yes Diet: Regular Ambulating: Yes Date and Time of Service: 06/28/2017 1 PM Interval History: Overall doing very well. No complaints or problems. Tolerating a regular diet. No nausea. Ambulating. Objective : Data - Labs CBC and BMP: 06/27/17 06:35 06/28/17 06:18 - Vital Signs Vital Signs and I&O: Vital Signs - Last Taken Temperature 98.2 F 06/28/17 11:22 Pulse Rate 59 L 06/28/17 11:22 Respiratory Rate 17 06/28/17 11:22 Blood Pressure 150/71 06/28/17 11:22 Pulse Ox 93 06/28/17 11:22 Intake and Output (24hr x 4 totals) 06/26/17 06/27/17 06/28/17 06/29/17 05:59 05:59 05:59 05:59 Intake Total 1383 / 1383 4563 / 4563 2520 / 2520 370 / 370 Output Total 2800 / 2800 3825 / 3825 2750 / 2750 Balance -1417 / -1417 738 / 738 -230 / -230 370 / 370 Objective : Exam - General General Appearance: No Acute Distress, Cooperative - Respiratory Respiratory Exam: Clear to Auscultation - Bilaterally, Breathing Non Labored - Cardiovascular Cardiovascular Exam: RRR, No Murmur - GI/Abdominal GI/Abdominal Exam: Non Tender, Non Distended, Soft, Diminished Bowel Sounds Additional GI/Abdominal Exam Details: Stoma is edematous but viable. Output of a lot of brownish liquid with some stool. - Neurological Neurological Exam: Alert, Oriented x 3 - Psychiatric Psychiatric Exam: Normal Affect, Normal Mood Assessment and Plan - Patient Problems (1) Status post partial resection of colon Current Visit: Yes Status: Acute Priority: High Onset Date: 06/24/17 Comment: Overall doing well. With his high volume liquid stool output we'll check a C. difficile. Potassium needs to be replaced. Discussed with Dr. Graciela holland. I am leaving town. The patient is aware. Dr. Britton will cover. I discussed the case with Dr. Britton as well. Once we get his potassium under control he can probably go to a swing bed until he is capable of caring for his ostomy. Code(s): Z90.49 - Acquired absence of other specified parts of digestive tract (2) Colonic obstruction Current Visit: Yes Status: Acute Priority: Low Onset Date: ~06/17/17 Comment: Surgically resolved. Code(s): K56.609 - Unspecified intestinal obstruction, unspecified as to partial versus complete obstruction (3) Hypokalemia Current Visit: Yes Status: Acute Comment: Per the hospitalist service. Code(s): E87.6 - Hypokalemia
--- NOTE | 2017-06-28 13:39 | PDOC(PROG) ---
Interval History: Doing well no complaints Objective : Data - Labs CBC and BMP: 06/27/17 06:35 06/28/17 06:18 Objective : Exam - Head Head Exam: Normal Inspection - Respiratory Respiratory Exam: Clear to Auscultation - Bilaterally, Breathing Non Labored, Normal To Percussion - Cardiovascular Cardiovascular Exam: RRR, No Murmur, No Clicks Assessment and Plan - Patient Problems (1) Bowel obstruction Current Visit: Yes Status: Acute Priority: High Onset Date: ~06/17/17 Comment: Deferred to Dr. Strong Code(s): K56.609 - Unspecified intestinal obstruction, unspecified as to partial versus complete obstruction Qualifiers: Intestinal obstruction type: other intestinal obstruction Intestinal obstruction extent: unspecified extent Qualified Code(s): K56.699 - Other intestinal obstruction unspecified as to partial versus complete obstruction (2) Hypertension Current Visit: Yes Status: Acute Comment: Stable continue current meds Code(s): I10 - Essential (primary) hypertension Qualifiers: Hypertension type: essential hypertension Qualified Code(s): I10 - Essential (primary) hypertension (3) Hypokalemia Current Visit: Yes Status: Acute Comment: Give 2 g of magnesium I think she is losing through her colostomy normal saline 75-20 of kcl also 60 twice a day oral Code(s): E87.6 - Hypokalemia
[2017-06-28 14:26] LABS: BLOOD UREA NITROGEN 17 mg/dL (7-22); BUN/CREATININE RATIO 24.28 (6-20)
[2017-06-28] MEDS ORDERED: methylPREDNISolone 125 MG/2 ML VIAL IVP ONE (19:50)
[2017-06-28] MEDS ORDERED: Sodium Chloride 0.9% 1,000 ML IV ONE (19:50)
[2017-06-28] MEDS ORDERED: Sodium Chloride 0.9% 1,000 ML PRIMARY IV ONE (20:00)
[2017-06-28] MEDS: POTASSIUM CHLORIDE 20 MEQ TAB PO SCH (21:40)
[2017-06-28] MEDS: Simvastatin Tab 10 MG TAB PO SCH (21:40)
[2017-06-29] MEDS: LEVOTHYROXINE 75 MCG TABLET PO SCH ×2 (03:55→05:42)
[2017-06-29 06:45] LABS: BLOOD UREA NITROGEN 15 mg/dL (7-22)
[2017-06-29] MEDS: PARoxetine Tab 20 MG TAB PO SCH (09:20)
[2017-06-29] MEDS: OMEPRAZOLE 20 MG CAPSULE PO SCH (09:20)
[2017-06-29] MEDS: POTASSIUM CHLORIDE 20 MEQ TAB PO SCH ×2 (09:21→20:23)
[2017-06-29] MEDS: Spironolactone Tab 25 MG TAB PO SCH (09:21)
--- NOTE | 2017-06-29 10:17 | PDOC(PROG) ---
Subjective Post Op Day: postop day 5 Date and Time of Service: 06/29/2017 11:15 Interval History: Patient states is having no problems. He is unsure whether he can make it at home. He has never taken care of the colostomy and really hasn't done in the hospital yet. We are still having problems with skin the colostomy bag stick. Patient is having high-volume output from his ostomy. Objective : Data - Labs CBC and BMP: 06/27/17 06:35 06/29/17 06:00 - Vital Signs Vital Signs and I&O: Vital Signs - Last Taken Temperature 98 F 06/29/17 08:55 Pulse Rate 74 06/29/17 08:55 Respiratory Rate 16 06/29/17 08:55 Blood Pressure 165/77 06/29/17 08:55 Pulse Ox 93 06/29/17 08:55 Intake and Output (24hr x 4 totals) 06/27/17 06/28/17 06/29/17 06/30/17 05:59 05:59 05:59 05:59 Intake Total 4563 / 4563 2520 / 2520 3517 / 3517 1450 / 1450 Output Total 3825 / 3825 2750 / 2750 3425 / 3425 200 / 200 Balance 738 / 738 -230 / -230 92 / 92 1250 / 1250 Objective : Exam - General General Appearance: No Acute Distress, Cooperative - Respiratory Respiratory Exam: Clear to Auscultation - Bilaterally - Cardiovascular Cardiovascular Exam: RRR - GI/Abdominal GI/Abdominal Exam: Normal Bowel Sounds, Non Tender, Non Distended, Soft Assessment and Plan - Patient Problems (1) Colonic obstruction Current Visit: Yes Status: Acute Priority: Low Onset Date: ~06/17/17 Code(s): K56.609 - Unspecified intestinal obstruction, unspecified as to partial versus complete obstruction - Assessment / Plan Additional Assessment/Plan Details: Patient is postop day #6 for colonic resection for bowel obstruction. He has an colostomy. Overall now is doing well. His hypokalemia has been corrected. I think is okay for the hospitalist transferred to swing bed that way the patient can have PT for strengthening. And also we can do more colostomy teaching.
--- NOTE | 2017-06-29 10:35 | PDOC(PROG) ---
Interval History: Patient has no complaints feels much better today. Spoke to nurse last night as a she was concerned about swelling of his penis that was going on for a few days I did give an order for Solu-Medrol most likely secondary to third spacing from IV fluids after I discussed it with the surgeon this morning her Samano was taken out he did have 900 of urine out swelling is improved. Objective : Data - Labs CBC and BMP: 06/27/17 06:35 06/29/17 06:00 Objective : Exam - General General Appearance: Cooperative - Respiratory Respiratory Exam: Clear to Auscultation - Bilaterally, Breathing Non Labored, Normal To Percussion - Cardiovascular Cardiovascular Exam: RRR, No Murmur, No Clicks - GI/Abdominal GI/Abdominal Exam: Non Tender, Non Distended, Soft Assessment and Plan - Patient Problems (1) Bowel obstruction Current Visit: Yes Status: Acute Priority: High Onset Date: ~06/17/17 Comment: Deferred to general surgery patient seems to be doing well he will get stoma education Code(s): K56.609 - Unspecified intestinal obstruction, unspecified as to partial versus complete obstruction Qualifiers: Intestinal obstruction type: other intestinal obstruction Intestinal obstruction extent: unspecified extent Qualified Code(s): K56.699 - Other intestinal obstruction unspecified as to partial versus complete obstruction (2) Hypertension Current Visit: Yes Status: Acute Comment: Stable Code(s): I10 - Essential (primary) hypertension Qualifiers: Hypertension type: essential hypertension Qualified Code(s): I10 - Essential (primary) hypertension (3) Hypokalemia Current Visit: Yes Status: Acute Comment: This is resolved and is replaced now Code(s): E87.6 - Hypokalemia (4) Generalized weakness Current Visit: Yes Status: Acute Comment: Consult PTOT for eval Code(s): R53.1 - Weakness
[2017-06-29] MEDS: Simvastatin Tab 10 MG TAB PO SCH (20:22)
[2017-06-30] MEDS: LEVOTHYROXINE 75 MCG TABLET PO SCH (05:58)
[2017-06-30 06:46] LABS: BASOPHILS # (AUTO) 0.03 10*3/UL; BASOPHILS % (AUTO) 0.2 % (0-1); EOSINOPHILS # (AUTO) 0.31 10*3/UL; EOSINOPHILS % (AUTO) 2.3 % (0-8); Hematocrit [HCT] 30.9 % (42.0-52.0); Hemoglobin [HGB] 9.9 g/dL (14.0-18.0); MEAN CORPUSCULAR HEMOGLOBIN 30.3 PG (27-31); MEAN CORPUSCULAR VOLUME 94.5 FL (80-90); MONOCYTES # (AUTO) 1.25 10*3/UL (0.3-0.8); MONOCYTES % (AUTO) 9.4 % (5-15); NEUTROPHILS # (AUTO) 9.23 10*3/UL; NEUTROPHILS % (AUTO) 69.5 % (50-80); PLATELET MORPHOLOGY COMMENT NORMAL MORPHOLOGY (NORM); RBC MORPHOLOGY COMMENT NORMAL MORPHOLOGY (NORM); RED BLOOD COUNT 3.27 10^6/uL (4.70-6.10); WBC MORPHOLOGY COMMENT NORMAL MORPHOLOGY (NORM)
[2017-06-30 06:52] LABS: BLOOD UREA NITROGEN 19 mg/dL (7-22); BUN/CREATININE RATIO 27.14 (6-20); SERUM ALBUMIN 2.7 g/dL (3.5-4.8)
[2017-06-30] MEDS: Spironolactone Tab 25 MG TAB PO SCH (07:08)
[2017-06-30] MEDS: POTASSIUM CHLORIDE 20 MEQ TAB PO SCH ×2 (08:12→21:08)
[2017-06-30] MEDS: OMEPRAZOLE 20 MG CAPSULE PO SCH (08:12)
[2017-06-30] MEDS: PARoxetine Tab 20 MG TAB PO SCH (08:12)
--- NOTE | 2017-06-30 11:07 | PDOC(PROG) ---
Interval History: No complaints doing well with no chest pain no nausea no vomiting Objective : Data - Labs CBC and BMP: 06/30/17 06:00 06/30/17 06:00 Objective : Exam - General General Appearance: Cooperative - Respiratory Respiratory Exam: Clear to Auscultation - Bilaterally, Breathing Non Labored, Normal To Percussion - Cardiovascular Cardiovascular Exam: RRR, No Murmur, No Clicks, No Gallops - Extremities Extremities Exam: No Clubbing Present, No Edema Present Assessment and Plan - Patient Problems (1) Bowel obstruction Current Visit: Yes Status: Acute Priority: High Onset Date: ~06/17/17 Code(s): K56.609 - Unspecified intestinal obstruction, unspecified as to partial versus complete obstruction Qualifiers: Intestinal obstruction type: other intestinal obstruction Intestinal obstruction extent: unspecified extent Qualified Code(s): K56.699 - Other intestinal obstruction unspecified as to partial versus complete obstruction (2) Hypertension Current Visit: Yes Status: Acute Code(s): I10 - Essential (primary) hypertension Qualifiers: Hypertension type: essential hypertension Qualified Code(s): I10 - Essential (primary) hypertension (3) Hypokalemia Current Visit: Yes Status: Acute Code(s): E87.6 - Hypokalemia (4) Generalized weakness Current Visit: Yes Status: Acute Code(s): R53.1 - Weakness - Assessment / Plan Additional Assessment/Plan Details: 1 status post bowel obstruction with resection and colostomy doing great postop. He is learning how to change his stoma #2 hypokalemia and hypomagnesemia both replaced within normal limits #3 generalized weakness PTOT on consult patient able to go home once cleared by PT discussed with surgery
--- NOTE | 2017-06-30 11:55 | OT.PROG ---
Progress Note Progress Note: S: pt stated his stomach is still sore. He did want to change into some cloths before leaving for therapy. O; pt was seen in his room completing ADL donning/doffing of socks with seam rubber and sock aid Ind after educated. He then completed transfer downstairs to therapy with no assistive device. He completee 8 min On nu step to increase activity tolerance. He then completed x15 on box, x6 hurdles and x2 min each on air ex to increase balance. He then complete UE exercises with 3# in bicep flex and tricep ext x20. He returned to his room and left upright in chair with alarm on. A: pt tolerated therapy well today and his balance was good with no assistance needed to prevent any falls. P: continue per poc.
[2017-06-30] MEDS: Simvastatin Tab 10 MG TAB PO SCH (21:08)
[2017-07-01 06:46] LABS: Hematocrit [HCT] 33.6 % (42.0-52.0); Hemoglobin [HGB] 10.8 g/dL (14.0-18.0); MEAN CORPUSCULAR HEMOGLOBIN 30.3 PG (27-31); MEAN CORPUSCULAR HGB CONC 32.1 g/dL (33-37); MEAN CORPUSCULAR VOLUME 94.1 FL (80-90); MEAN PLATELET VOLUME 10.5 FL (7.4-12.2); RED BLOOD COUNT 3.57 10^6/uL (4.70-6.10)
[2017-07-01 06:56] LABS: BLOOD UREA NITROGEN 12 mg/dL (7-22); BUN/CREATININE RATIO 17.14 (6-20); SERUM ALBUMIN 3.1 g/dL (3.5-4.8)
[2017-07-01] MEDS ORDERED: FLUCONAZOLE 200 MG TABLET PO ONE (08:20)
--- NOTE | 2017-07-01 08:29 | PDOC(PROG) ---
Subjective Post Op Day: postop 7 Pain Management: PO Diet: Regular Date and Time of Service: 07/01/2017 825 Interval History: Patient is a 66 no problems. Still cannot take care of his colostomy. Objective : Data - Labs CBC and BMP: 07/01/17 06:05 07/01/17 06:05 - Vital Signs Vital Signs and I&O: Vital Signs - Last Taken Temperature 97.5 F 07/01/17 04:55 Pulse Rate 68 07/01/17 04:55 Respiratory Rate 22 07/01/17 04:55 Blood Pressure 171/78 07/01/17 04:55 Pulse Ox 93 07/01/17 04:55 Intake and Output (24hr x 4 totals) 06/29/17 06/30/17 07/01/17 07/02/17 06:59 06:59 05:59 05:59 Intake Total Output Total Balance Objective : Exam - General General Appearance: No Acute Distress, Cooperative - Neck Neck Exam: Normal Inspection - Respiratory Respiratory Exam: Clear to Auscultation - Bilaterally, Breathing Non Labored - GI/Abdominal GI/Abdominal Exam: Normal Bowel Sounds, Non Tender, Non Distended, Soft Assessment and Plan - Patient Problems (1) Colonic obstruction Current Visit: Yes Status: Acute Priority: Low Onset Date: ~06/17/17 Code(s): K56.609 - Unspecified intestinal obstruction, unspecified as to partial versus complete obstruction - Assessment / Plan Additional Assessment/Plan Details: Patient has a persistently elevated white count. He is afebrile have no abdominal pain. Will check a UA and get a chest x-ray today. We'll start Diflucan 400 milligrams by mouth today then 200 mg daily until we can sort through this.(This case patient has developed a candidiasis, patient was on antibiotic therapy status post colon resection and had a bowel obstruction open up his colon.) His colostomy is edematous but viable. Nurses reported that his stool coming out from underneath it I do not see any evidence of that today. Patient is still putting a lot of fluid out his ostomy. Would benefit from a colostomy belt. Patient needs to remain in the hospital until adequate time that he can care for his colostomy himself
[2017-07-01] MEDS: LEVOTHYROXINE 75 MCG TABLET PO SCH (08:39)
[2017-07-01] MEDS: Spironolactone Tab 25 MG TAB PO SCH (08:39)
[2017-07-01] MEDS: POTASSIUM CHLORIDE 20 MEQ TAB PO SCH ×2 (09:04→20:39)
--- NOTE | 2017-07-01 09:19 | DI ---
PA + LATERAL CXR: HISTORY: 86-year-old male with leukocytosis. COMPARISON: Portable CXR 06/22/2016; portable chest/abdominal x-ray 06/23/2017. FINDINGS: There is a small right basilar pleural effusion, likely new since 06/23/2017. Bibasilar lung reticular opacities seen on that prior exam have resolved. The lungs now appear essentially clear. Heart size is normal. No obvious hilar or mediastinal mass. No pneumothorax. No obvious acute osseous abnormality. IMPRESSION: Small right pleural effusion; otherwise, essentially unremarkable CXR.
[2017-07-01] MEDS: PARoxetine Tab 20 MG TAB PO SCH (10:13)
[2017-07-01] MEDS: OMEPRAZOLE 20 MG CAPSULE PO SCH (10:14)
--- NOTE | 2017-07-01 10:51 | OT.PROG ---
Progress Note Progress Note: S: pt stated he was feeling better today and that he already ate breakfast. O: pt was seen in his room and completed functional transfer to restroom and completed toileting INd. He completed hygiene as sink Ind And ADL dressing as well. He transferred downstairs with no assistive device. He completed 7 min on Nu step to increase activity tolerance. He then completed hurdles with air ex and box x6 needing only CGA for assistance. He completed 3# box x10 with L and R. He then completed LAQ x15, heal raises x15, bicep curls 4# x15 and tricep ext with RTb x15. He returned to his room and was left with call light within reach and alarm on. A: pt participates well and may benefit from therapy to increase his activity tolerance as well as balance. P: continue per POC..
[2017-07-01] MEDS ORDERED: Magnesium Sulfate 2gm (Premix) 2 GM/50 ML BAG IV ONE (11:19)
--- NOTE | 2017-07-01 12:16 | PDOC(PROG) ---
Interval History: Patient has no complaints no cough no chest pain no nausea no vomiting no fever or chills does not look infected Objective : Data - Labs CBC and BMP: 07/01/17 06:05 07/01/17 06:05 Objective : Exam - General General Appearance: Cooperative - Head Head Exam: Normal Inspection - Neck Neck Exam: Normal Inspection - Respiratory Respiratory Exam: Clear to Auscultation - Bilaterally, Breathing Non Labored, Normal To Percussion - Cardiovascular Cardiovascular Exam: RRR, No Murmur, No Clicks - GI/Abdominal GI/Abdominal Exam: Non Tender, Non Distended, Soft - Extremities Extremities Exam: No Clubbing Present, No Edema Present Assessment and Plan - Patient Problems (1) Bowel obstruction Current Visit: Yes Status: Acute Priority: High Onset Date: ~06/17/17 Code(s): K56.609 - Unspecified intestinal obstruction, unspecified as to partial versus complete obstruction Qualifiers: Intestinal obstruction type: other intestinal obstruction Intestinal obstruction extent: unspecified extent Qualified Code(s): K56.699 - Other intestinal obstruction unspecified as to partial versus complete obstruction (2) Hypertension Current Visit: Yes Status: Acute Code(s): I10 - Essential (primary) hypertension Qualifiers: Hypertension type: essential hypertension Qualified Code(s): I10 - Essential (primary) hypertension (3) Hypokalemia Current Visit: Yes Status: Acute Code(s): E87.6 - Hypokalemia (4) Generalized weakness Current Visit: Yes Status: Acute Code(s): R53.1 - Weakness - Assessment / Plan Additional Assessment/Plan Details: #1 small bowel obstruction status post resection defer to general surgery Dr. adalgisa Torres on the case in regards to his stoma function and leakage. #2 hypokalemia continue 60 mEq by mouth twice a day #3 hypomagnesemia 1.8 we'll give 2 g IV today #4 generalized weakness PTOT consult
[2017-07-01] MEDS: Simvastatin Tab 10 MG TAB PO SCH (20:39)
[2017-07-02] MEDS: LEVOTHYROXINE 75 MCG TABLET PO SCH (05:53)
[2017-07-02 06:23] LABS: BASOPHILS # (AUTO) 0.05 10*3/UL; BASOPHILS % (AUTO) 0.3 % (0-1); EOSINOPHILS # (AUTO) 0.51 10*3/UL; EOSINOPHILS % (AUTO) 2.9 % (0-8); Hematocrit [HCT] 34.5 % (42.0-52.0); Hemoglobin [HGB] 11.5 g/dL (14.0-18.0); LYMPHOCYTES # (AUTO) 2.19 10*3/uL; MEAN CORPUSCULAR HEMOGLOBIN 31.1 PG (27-31); MEAN CORPUSCULAR HGB CONC 33.3 g/dL (33-37); MEAN CORPUSCULAR VOLUME 93.2 FL (80-90); MEAN PLATELET VOLUME 10.4 FL (7.4-12.2); MONOCYTES # (AUTO) 1.32 10*3/UL (0.3-0.8); MONOCYTES % (AUTO) 7.5 % (5-15); NEUTROPHILS # (AUTO) 13.27 10*3/UL; NEUTROPHILS % (AUTO) 75.2 % (50-80)
[2017-07-02 06:24] LABS: PLATELET MORPHOLOGY COMMENT NORMAL MORPHOLOGY (NORM); RBC MORPHOLOGY COMMENT NORMAL MORPHOLOGY (NORM); WBC MORPHOLOGY COMMENT NORMAL MORPHOLOGY (NORM)
[2017-07-02 06:32] LABS: BLOOD UREA NITROGEN 10 mg/dL (7-22); BUN/CREATININE RATIO 14.28 (6-20)
[2017-07-02] MEDS: Spironolactone Tab 25 MG TAB PO SCH (07:25)
[2017-07-02] MEDS: OMEPRAZOLE 20 MG CAPSULE PO SCH (09:23)
[2017-07-02] MEDS: POTASSIUM CHLORIDE 20 MEQ TAB PO SCH ×2 (09:23→21:23)
[2017-07-02] MEDS: PARoxetine Tab 20 MG TAB PO SCH (09:23)
[2017-07-02] MEDS: NORMAL SALINE 10 ML SYRINGE FLUSH IVP PRN (09:24)
[2017-07-02] MEDS: Ertapenem Inj 1 GM in Sodium Chloride 0.9% 100 ML IV SCH (09:24)
--- NOTE | 2017-07-02 10:20 | PDOC(PROG) ---
Subjective Post Op Day: postop day Pain Management: PO Date and Time of Service: 07/01/2017 at 1020 Interval History: Patient states he's feeling fine having no problems. Objective : Data - Labs CBC and BMP: 07/02/17 06:00 07/02/17 06:00 - Vital Signs Vital Signs and I&O: Vital Signs - Last Taken Temperature 98 F 07/02/17 07:14 Pulse Rate 72 07/02/17 07:14 Respiratory Rate 19 07/02/17 07:14 Blood Pressure 168/81 07/02/17 07:14 Pulse Ox 94 07/02/17 07:14 Intake and Output (24hr x 4 totals) 06/30/17 07/01/17 07/02/17 07/03/17 06:59 05:59 05:59 05:59 Intake Total 2280 / 2280 120 / 120 Output Total 3325 / 3325 975 / 975 Balance -1045 / -1045 -855 / -855 Objective : Exam - General General Appearance: No Acute Distress, Cooperative - Respiratory Respiratory Exam: Clear to Auscultation - Bilaterally - GI/Abdominal GI/Abdominal Exam: Normal Bowel Sounds, Non Tender, Non Distended, Soft ( Incision clean dry nonerythematous patient has no abdominal pain.) Assessment and Plan - Patient Problems (1) Colonic obstruction Current Visit: Yes Status: Acute Priority: Low Onset Date: ~06/17/17 Code(s): K56.609 - Unspecified intestinal obstruction, unspecified as to partial versus complete obstruction - Assessment / Plan Additional Assessment/Plan Details: Patient is increasing white count. His platelets and hemoglobin also increasing. Patient is on Diflucan currently. There is no's source of infection but patient has a CT scan that is pending
--- NOTE | 2017-07-02 10:20 | PDOC(PROG) ---
Interval History: Patient is doing well does not look septic or sick no complaints he said he did change his own stoma Objective : Data - Labs CBC and BMP: 07/02/17 06:00 07/02/17 06:00 Objective : Exam - General General Appearance: Cooperative - Respiratory Respiratory Exam: Clear to Auscultation - Bilaterally, Breathing Non Labored, Normal To Percussion - Cardiovascular Cardiovascular Exam: RRR, No Murmur, No Clicks, No Gallops, No Rubs, PMI Non- Displaced - GI/Abdominal GI/Abdominal Exam: Normal Bowel Sounds, Non Tender, Non Distended, Soft, No Masses, No Hepatomegaly, No Splenomegaly, No Organomegaly - Extremities Extremities Exam: No Clubbing Present, No Edema Present Assessment and Plan - Patient Problems (1) Bowel obstruction Current Visit: Yes Status: Acute Priority: High Onset Date: ~06/17/17 Comment: Defer to general surgery Code(s): K56.609 - Unspecified intestinal obstruction, unspecified as to partial versus complete obstruction Qualifiers: Intestinal obstruction type: other intestinal obstruction Intestinal obstruction extent: unspecified extent Qualified Code(s): K56.699 - Other intestinal obstruction unspecified as to partial versus complete obstruction (2) Hypertension Current Visit: Yes Status: Acute Comment: Stable Code(s): I10 - Essential (primary) hypertension Qualifiers: Hypertension type: essential hypertension Qualified Code(s): I10 - Essential (primary) hypertension (3) Hypokalemia Current Visit: Yes Status: Acute Comment: Replaced Code(s): E87.6 - Hypokalemia (4) Generalized weakness Current Visit: Yes Status: Acute Comment: PTOT Code(s): R53.1 - Weakness (5) Elevated WBC count Current Visit: Yes Status: Acute Comment: No apparent reason but has been going up over the last 3 days now 17, [address] scan abdomen and pelvis and chest and a UA discussed with general surgery Code(s): D72.829 - Elevated white blood cell count, unspecified
--- NOTE | 2017-07-02 11:19 | PT.PROG ---
Progress Note Progress Note: S. Patient states that he is feeling a little weak after having tests this morning. O. Patient ambulated 350 feet around the nurses station then was left in the restroom and nursing was notified. A. Patient tolerated ambulation fair, he requires a short standing rest break and was very weak. He has slight balance deficits however was able to ambulate the full distance with Stand by gaurd assist. Patient would continue to benefit from skilled therapy at this time. P. continue POC.
--- NOTE | 2017-07-02 11:57 | DI ---
CT CHEST SCAN WITH IV CONTRAST, 07/02/2017 8:10 AM : Clinical History: Elevated wbc post op for a bowel obstruction. Previous Exam: None at this facility. Scans are performed from the base of the neck to the lower lung bases with IV contrast. 75 ml of Isov ue 300 was injected IV. Sagittal and coronal images using non MIPS and MIPS technique are generated. The base of the neck and thoracic inlet are normal. There are no abnormal axillary, supraclavicular, mediastinal, or hilar nodes. The heart is normal. Coronary artery calcifications are present in the l eft mainstem, the proximal and middle thirds of the LAD, and in the proximal half of the left circumf ez and right coronary arteries. The pulmonary arteries are normal. The thoracic aorta and the pulmon carlos arteries are also normal. There is no acute infiltrate. Since the previous study, the patient has developed very small bilateral pleural effusions, slightly larger on the right side than on the left side. No pulmonary nodules are identified. READIN. No acute infiltrate is present to explain the elevated white blood count. The patient has develop ed very small bilateral pleural effusions since the CT scan of the abdomen and pelvis from 06/22/2017 . 2. Coronary artery disease with calcifications in all 3 major branches.
[2017-07-02] MEDS ORDERED: FLUCONAZOLE 200 MG TABLET PO ONE (12:00)
--- NOTE | 2017-07-02 13:02 | DI ---
CT ABDOMEN SCAN WITH IV CONTRAST, 07/02/2017 8:10 AM : Clinical History: Elevated wbc post op for a bowel obstruction. Previous Exam: 06/23/2017. Scans are performed from the lower lung bases through the liver and kidneys with IV contrast. This is the same bolus of contrast used for the CT scan of the chest. No oral or rectal contrast was adminis tered. Very small bilateral pleural effusions are present. The liver is normal. The gallbladder is grossly n ormal. There is no abnormality of the spleen, pancreas, and adrenal glands. Both kidneys are normal i n size, shape, position and contour. There is no hydronephrosis or hydroureter. No renal or ureteral calculi are present. There are no abnormal retrocrural or periaortic nodes. No ascites is present. READING: Normal CT abdomen scan. CT PELVIS SCAN WITH IV CONTRAST, 07/02/2017 8:10 AM: Clinical History: 06/23/2017. Previous Exam: None at this facility. Scans are performed from just superior to the umbilicus to the symphysis pubis with IV contrast. This is the same bolus of contrast used for the CT scans of the chest and abdomen. Scans through the lower abdomen and pelvis show no masses. There is a trace amount of fluid in the pe lvis. No abscess cavity is identified. There is no adenopathy. The appendix is not identified with ce rtainty but there is no inflammatory mass either in the cecum or in the right lower quadrant. The ile ocecal valve and proximal small bowel normal. 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 The bowel wall thickness involving the cec um and ascending colon in the distal ileum is prominent. This is probably secondary to the marked dis tention of colon and small bowel that was present preoperatively that now appears "thickened" once th e bowel was decompressed. There are no hernias. READIN. There is a trace amount of fluid in the pelvis without evidence of an abscess cavity. 2. The bowel wall has the appearance of being thickened, but this is probably a manifestation of pre viously markedly distended and attenuated bowel wall that is now redundant after decompression.
--- NOTE | 2017-07-02 15:29 | PT.PROG ---
Progress Note Progress Note: S. Patient stated that he is feeling a little better this afternoon compared to this morning. O. Patient ambulated 175 feet to the therapy gym where he used the nu-step x 10 minutes, then performed standing balance exercises in the form of; balance grid x 3, airex balance x3 minutes, standing marches and heel toe raises x 20. Patient was instructed on proper use of a cane and fitted to test cane. Patient ambulated 175 feet back to his room with a cane. He was left in chair with alarm and call light. A. Patient tolerated therapy well, he continues to have balance deficits. Patient appears to be slightly more steady with a cane however reported he did not want to use cane frequently. Recommended cane however patient was going to see how he feels in the morning about using the cane regularly. Patient would continue to benefit from strengthening and continued balance activities. P. Continue POC.
[2017-07-02] MEDS ORDERED: FUROSEMIDE 10 MG/1 ML - 4 ML IVP ONE (15:43)
--- NOTE | 2017-07-02 15:51 | PTI REPORT ---
Thank you for the referral of Bhavani Raymundo. He was seen on 06/29/17 for an inpatient evaluation secondary to generalized weakness. SUBJECTIVE: The patient is an 86-year-old male who states that he was sent to the hospital secondary to issues with constipation. The patient was found to have a distal colon obstruction and underwent a surgical procedure for a partial resection. The patient now has a colostomy in place and he states that it will be 3-4 months before they can possibly go back in and reverse the colostomy. The patient states he has been doing better since surgery. He reports 0/10 pain at this time. Just prior to PT's arrival for our evaluation, the patient was up walking with nursing staff. He had done two laps around the nurse's station with a standard walker. The patient states that prior to his admittance to the hospital he was not using any sort of assistive device and also reports no history of falls. The patient states that he lives here in [place] with his . He lives in a single level home. There are a few steps up into the home , but he states that they are very low steps and they had their house designed specifically for them approximately four years ago. PAST MEDICAL HISTORY: Past medical history can be found in the patient's medical record. OBJECTIVE FINDINGS: General observations: The patient is alert and oriented to setting upon PT arrival. The patient was seated edge of bed as he had just finished walking with nursing staff. The patient stated that he was able to walk half a lap further than he was earlier this morning and is quite pleased with the progress he is making. The patient states he is having difficulties with any type of bending due to his recent surgery. Strength: Manual muscle testing was performed in a seated position. The patient demonstrated 4/5 bilateral hip strength and 5/5 bilateral knee and ankle strength. Bed mobility/Transfers: The patient is able to move from supine to sit and sit to stand with stand by assistance for safety. The patient completed 5x sit to stand transfers which took him 27.9 seconds. Balance: In a standing position, the patient demonstrates fair standing balance and does need hand hold assist x1 to maintain good balance reaction. Ambulation: The patient was able to ambulate x50 feet with hand hold assist x1 for safety to help steady his balance. ASSESSMENT: The patient has good rehab potential. Problem List: Decreased endurance and activity tolerance Generalized weakness Short-Term Goals: To be met by discharge from inpatient: Patient will be able to ambulate at least 200 feet with least restrictive assistive device and do so safely. Patient will be able to ambulate up and down at least 5 stairs with least restrictive assistive device and do so safely. Patient will be able to tolerate at least 30 minutes of physical activity without an increase in pain. Long-Term Goals: To be met following discharge from inpatient: Patient may be seen by outpatient physical therapy if deemed necessary at time of discharge. TREATMENT PLAN: Patient will be seen B.I.D during the week and one time per day over the weekend as an inpatient for improving his activity tolerance and endurance, working on ambulation on level surfaces, stairs, and uneven surfaces, and general strengthening activities. INITIAL TREATMENT: Treatment today consisted of the initial evaluation followed by functional activity. After PT evaluation, the patient returned back to his bed and was left with bed alarm set and call light within reach. LAMBERTO
--- NOTE | 2017-07-02 16:09 | OTI REPORT ---
Thank you for the referral of Bhavani Raymundo. He was seen on 06/29/17 for an occupational therapy inpatient evaluation secondary to generalized weakness. SUBJECTIVE: The patient is an 86-year-old male who is being seen secondary to having an ostomy bag and weakness. He had a partial resection of his colon. The patient states he experienced pain for 3-4 months, but now he is not in pain. The patient reports he has macular degeneration. He states he still drives but does not drive at night. The patient lives with his spouse in a single story home. He says he has a walk-in shower with a grab bar and a raised toilet seat. Typically the patient does not use any adaptive devices to drive. Prior to admission the patient states his usually did the laundry and the cooking , they both do the cleaning and the grocery shopping, and he does some of the driving. The patient reports he is not having any trouble with foods or liquids and he does take care of his own medications. PAST MEDICAL HISTORY: Past medical history can be found in the patient's medical record. OBJECTIVE FINDINGS: Bed mobility: Today the patient was able to come from supine to sit independently. Range of motion: The patient has good active range of motion of his upper extremities. Strength: Strength for shoulder flexion/abduction was 4+/5, elbow flexion/ extension was 4/5, and wrist flexion/extension was 4/5. Transfers: The patient required contact guard assist for balance to functionally transfer from bed to chair. Activities of daily living: The patient reports that he is having difficulty with dressing activities as he does not want to over-exert the bag. He reports having difficulty with the bag leaking, so he is trying to get that under control before he returns home. The patient is having difficulty dressing himself secondary to over straining his stomach. The patient was issued a system manager, a shoe horn, and a sock aide for increased independence with dressing tasks. Demonstration was given. The patient was able to use the system manager to doff socks with min assist and used the sock aide to don socks with min assist. The patient required verbal cues and reminders to perform this task correctly. The patient states his shoes are difficult to don and they tend to fold over when he is getting them on, so the patient was issued a shoe horn as well. ASSESSMENT: The patient would benefit from some slight upper extremity strengthening; however, we don't want to over strain secondary to the ostomy bag healing. Problem List: Decreased balance with functional transfers Patient requires education on use of adaptive equipment Short-Term Goals: To be met by discharge from inpatient: Patient will be able to dress self with modified independence with adaptive equipment. Patient will increase upper extremity strength to 4+/5 throughout. Patient will be able to perform all functional transfers to bathtub and toilet independently and safely. Long-Term Goals: To be met following discharge from inpatient: Patient will discharge to home, demonstrating independence and safety with all functional transfers and ADLs. TREATMENT PLAN: Patient will be seen B.I.D during the week and one time per day over the weekend as an inpatient to address the above goals and objectives. INITIAL TREATMENT: Treatment today consisted of the initial evaluation followed by the patient completing ADL tasks with adaptive equipment as described above with min assist and verbal cues, functional transfers, and upper extremity active range of motion. LAMBERTO
[2017-07-02 16:31] LABS: BILIRUBIN,URINE NEGATIVE (NEG); CLARITY,URINE CLEAR (CLEAR); COLOR,URINE YELLOW (Y); GLUCOSE, URINE (UA) NEGATIVE (NEG); NITRATE,URINE NEGATIVE (NEG); OCCULT BLOOD,URINE SMALL (NEG); PH,URINE 5.5 (5.0-8.5); PROTEIN,URINE NEGATIVE (NEG); UROBILINOGEN,URINE 0.2 EU/dL (0.2)
[2017-07-02 16:34] LABS: RBC,URINE 0-3 /hpf; URINE SAMPLE TYPE VOID
[2017-07-02] MEDS: Simvastatin Tab 10 MG TAB PO SCH (21:23)
[2017-07-03] MEDS: LEVOTHYROXINE 75 MCG TABLET PO SCH (05:06)
[2017-07-03] MEDS ORDERED: FUROSEMIDE 10 MG/1 ML - 2 ML VIAL IVP SCH (07:00)
[2017-07-03] MEDS: Spironolactone Tab 25 MG TAB PO SCH (07:14)
[2017-07-03] MEDS: Ertapenem Inj 1 GM in Sodium Chloride 0.9% 100 ML IV SCH (08:41)
[2017-07-03] MEDS: PARoxetine Tab 20 MG TAB PO SCH (08:41)
[2017-07-03] MEDS: OMEPRAZOLE 20 MG CAPSULE PO SCH (08:42)
[2017-07-03] MEDS: POTASSIUM CHLORIDE 20 MEQ TAB PO SCH ×2 (08:42→21:30)
[2017-07-03 11:10] LABS: BASOPHILS # (AUTO) 0.03 10*3/UL; BASOPHILS % (AUTO) 0.2 % (0-1); EOSINOPHILS # (AUTO) 0.18 10*3/UL; Hemoglobin [HGB] 10.5 g/dL (14.0-18.0); LYMPHOCYTES # (AUTO) 1.25 10*3/uL; MEAN CORPUSCULAR HEMOGLOBIN 30.4 PG (27-31); MEAN CORPUSCULAR HGB CONC 31.8 g/dL (33-37); MEAN CORPUSCULAR VOLUME 95.7 FL (80-90); MEAN PLATELET VOLUME 9.9 FL (7.4-12.2); MONOCYTES # (AUTO) 1.31 10*3/UL (0.3-0.8); MONOCYTES % (AUTO) 7.2 % (5-15); NEUTROPHILS # (AUTO) 15.18 10*3/UL; NEUTROPHILS % (AUTO) 83.5 % (50-80); RED BLOOD COUNT 3.45 10^6/uL (4.70-6.10)
[2017-07-03 11:22] LABS: BLOOD UREA NITROGEN 13 mg/dL (7-22); BUN/CREATININE RATIO 14.44 (6-20); MAGNESIUM 1.9 mg/dL (1.6-2.4); SERUM ALBUMIN 3.5 g/dL (3.5-4.8)
--- NOTE | 2017-07-03 11:55 | OT.PROG ---
Progress Note Progress Note: S: pt stated yesterday he felt like his balance was off, but feels much better today. O: pt was seen in therapy after being brought to gym by PT. He completed UE exercises with GTB in bicep flex, shoulder ext, rows, I/EROT x15 with BUE's, shoulder press 2# x10 BUE's. He also completed x10 sit to stands with 4# ball, and #4 box x10. He took one break during exercises for a drink of water. He transferred Ind with no assistive device and was left in his chair with alarm on. A: pt participated well with little assistance to maintain balance only remained CGA. Continue to progress with his strength and activity tolerance as he can tolerate. P: continue per POC.
--- NOTE | 2017-07-03 12:06 | PT.PROG ---
Progress Note Progress Note: S. Patient stated that he is feeling better today, he reports that he is struggling with changing his colostomy bag due to his neck cramping while he is looking down. O. Patient ambulated 175 feet to the therapy gym where he had heat while he used the nu-step x 10 minutes, then performed supine exercises in the from of; straight leg raises, short arc quads, ankle pumps, mini sit ups, and bridges and sit to stands all x10 bilaterally. Patient was left with OT for further therapy. A. Patient tolerated therapy well this morning. He continues to have slight balance deficits however was able to ambulate without single point cane this morning, he continues to require Stand by guard assist. Patient would continue to benefit from skilled therapy at this time. P. Continue POC.
[2017-07-03 12:10] LABS: PLATELET MORPHOLOGY COMMENT NORMAL MORPHOLOGY (NORM); RBC MORPHOLOGY COMMENT NORMAL MORPHOLOGY (NORM); WBC MORPHOLOGY COMMENT NORMAL MORPHOLOGY (NORM)
[2017-07-03] MEDS: FLUCONAZOLE 200 MG TABLET PO SCH (12:59)
--- NOTE | 2017-07-03 13:59 | OT.PROG ---
Progress Note Progress Note: S: pt stated he feels like he needs to get used to wearing shoes again. O: pt was seen in his room after nursing declared he was ok to go for therapy. Pt's placed shoes on and tied for him. He stood Ind and had a near fall as he fell back onto the arm of chair. Pt completed transfer downstairs with CGA for safety. He completed 5 min on UE bike to increase activity tolerance with o breaks. He transferred to mat table with CGA. He completed standing on air ex for 2 min x2 with CGA. He then completed balloon toss standing on floor for 2 min. He then completed 2 min x2 balloon toss while standing on air ex to challenge his balance. He needed min A x2-3 times to prevent fall off of air ex. PT took over tx at this point. A: pt's balance decrease today which may be contributed to donning of shoes. Continue to monitor this for his safety during postural transitions such as sit to stands and ambulation. P: continue per POC.
--- NOTE | 2017-07-03 14:44 | PDOC(PROG) ---
Subjective Post Op Day: postop day Pain Management: PO Date and Time of Service: 07/03/2017 at 1420 Interval History: Patient states he has no problem Objective : Data - Labs CBC and BMP: 07/03/17 11:05 07/03/17 11:05 - Vital Signs Vital Signs and I&O: Vital Signs - Last Taken Temperature 97.8 F 07/03/17 11:48 Pulse Rate 68 07/03/17 11:48 Respiratory Rate 17 07/03/17 11:48 Blood Pressure 106/55 07/03/17 11:48 Pulse Ox 97 07/03/17 11:48 Intake and Output (24hr x 4 totals) 07/01/17 07/02/17 07/03/17 07/04/17 05:59 05:59 05:59 05:59 Intake Total 2280 / 2280 1220 / 1220 475 / 475 Output Total 3325 / 3325 3775 / 3775 1000 / 1000 Balance -1045 / -1045 -2555 / -2555 -525 / -525 Objective : Exam - Respiratory Respiratory Exam: Clear to Auscultation - Bilaterally, Breathing Non Labored - GI/Abdominal GI/Abdominal Exam: Normal Bowel Sounds, Non Tender, Non Distended, Soft ( Patient has some reaction to the staple line but does not appear to be infected. Colostomy is pink and viable) Assessment and Plan - Patient Problems (1) Colonic obstruction Current Visit: Yes Status: Acute Priority: Low Onset Date: ~06/17/17 Code(s): K56.609 - Unspecified intestinal obstruction, unspecified as to partial versus complete obstruction - Assessment / Plan Additional Assessment/Plan Details: Patient has increasing leukocytosis without fever. CT scan of the chest and abdomen and pelvis showed no evidence of intra-abdominal infection no pneumonias. Is no evidence of wound infection. Unsure where the patient's white count is coming from. At this point, would stop his IV antibiotics. Continue Diflucan for another 24 hours
--- NOTE | 2017-07-03 16:23 | PT.PROG ---
Progress Note Progress Note: S. Patient stated that he is feeling better this afternoon. O. patient ambulated 175 feet to the therapy gym where he performed seated exercises in the form of; long arc quads, heel toe raises, marches, ball squeezes, clamshells, resisted knee flexion, sit to stands and standing marches all x 15 bilaterally. Patient ambulated 175 feet back to his room where he was left in the restroom and nursing was notified. A. Patient tolerated therapy well this afternoon. He continues to have slight balance deficits however was able to correct his balance with min assist. Patient became very fatigued during exercise and required frequent rest breaks to recover. Patient would continue to benefit from skilled therapy at this time. P. Continue POC.
--- NOTE | 2017-07-03 19:13 | PDOC(PROG) ---
Date and Time of Service: 07/03/2017 191 Interval History: No chest pain, shortness breath, nausea or vomiting. Patient seen twice today. There is some concern that the patient might be leaking on the lateral aspect at 3:00 on the stoma site. I did examine it with the nurses present without the wafer. He may have some mild yellow drainage, and it appears that it may not be as granulated as at other suture sites, but the stoma does appear edematous and viable and pink. No evidence of necrosis. Objective : Data - Labs CBC and BMP: 07/03/17 11:05 07/03/17 11:05 Objective : Exam - General General Appearance: No Acute Distress, Cooperative Additional General Exam Details: Vital Signs (24 hrs) Temp Pulse Pulse Pulse Resp BP BP 07/03/17 16:26 98.5 F 66 17 131/68 07/03/17 11:48 97.8 F 68 17 106/55 07/03/17 07:22 98.4 F 72 17 139/74 07/03/17 07:00 68 07/03/17 04:48 97.4 F 75 20 158/70 07/03/17 00:58 97.4 F 74 22 130/68 07/02/17 20:26 97.3 F 72 18 109/62 Pulse Ox 07/03/17 16:26 96 07/03/17 11:48 97 07/03/17 07:22 94 07/03/17 07:00 07/03/17 04:48 95 07/03/17 00:58 95 07/02/17 20:26 95 - Head Head Exam: Normal Inspection, Normocephalic - ENT ENT Exam: Mucous Membranes Moist - Respiratory Respiratory Exam: Clear to Auscultation - Bilaterally, Breathing Non Labored - Cardiovascular Cardiovascular Exam: RRR, No Murmur, No Clicks, No Gallops, No Rubs, No JVD - GI/Abdominal GI/Abdominal Exam: Normal Bowel Sounds, Non Tender, Non Distended, Soft Additional GI/Abdominal Exam Details: Incision is clean, dry, intact, ruddy in place. No drainage. Some hyperemic response, but not consistent with infection or cellulitis. Stoma site as discussed above - Extremities Extremities Exam: No Clubbing Present, No Edema Present, No Cyanosis Present - Neurological Neurological Exam: Alert, Oriented x 3, Normal Gait, No Facial Droop, Speech Intact / Clear, Moves All Extremities Equally - Psychiatric Psychiatric Exam: Normal Affect, Normal Mood Assessment and Plan - Patient Problems (1) Bowel obstruction Current Visit: Yes Status: Resolved Priority: High Onset Date: ~06/17/17 Code(s): K56.609 - Unspecified intestinal obstruction, unspecified as to partial versus complete obstruction Qualifiers: Intestinal obstruction type: other intestinal obstruction Intestinal obstruction extent: unspecified extent Qualified Code(s): K56.699 - Other intestinal obstruction unspecified as to partial versus complete obstruction (2) Hx: UTI (urinary tract infection) Current Visit: Yes Status: Acute Code(s): Z87.440 - Personal history of urinary (tract) infections (3) GERD (gastroesophageal reflux disease) Current Visit: Yes Status: Acute Code(s): K21.9 - Gastro-esophageal reflux disease without esophagitis Qualifiers: Esophagitis presence: without esophagitis Qualified Code(s): K21.9 - Gastro -esophageal reflux disease without esophagitis (4) Hypertension Current Visit: Yes Status: Acute Code(s): I10 - Essential (primary) hypertension Qualifiers: Hypertension type: essential hypertension Qualified Code(s): I10 - Essential (primary) hypertension (5) Hypothyroidism Current Visit: Yes Status: Chronic Code(s): E03.9 - Hypothyroidism, unspecified Qualifiers: Hypothyroidism type: acquired Qualified Code(s): E03.9 - Hypothyroidism, unspecified (6) Prostate cancer Current Visit: Yes Status: Acute Code(s): C61 - Malignant neoplasm of prostate (7) History of creation of ostomy Current Visit: Yes Status: Acute Code(s): Z87.898 - Personal history of other specified conditions - Assessment / Plan Additional Assessment/Plan Details: I spoke with surgery and they will see the 3 o'clock position on stoma tomorrow Patient had influenza vaccine about 4 days ago, white blood cell count could be just reaction related to this or hyperemia around the wound, although again no wound infection. Very reassuring to know the CT scan of chest abdomen and pelvis are negative. If white blood cell count stays elevated, consider repeat CT scan of abdomen in about 2 weeks to look for abscess. Patient has no infectious symptoms. No cough, no fevers, no chills, no nausea or vomiting, and although stool is loose, there is no evidence of C. difficile. I suspect the loose stool is really more related to water water balance changes in the colon following surgery. He was quite impacted prior to surgery. Electrolytes are improving and potassium is now normal, back off on potassium. Check labs tomorrow. Stop antibiotics and let patient declare himself if he is truly infected. Antifungal as per surgery.
[2017-07-03] MEDS: Simvastatin Tab 10 MG TAB PO SCH (21:30)
[2017-07-04] MEDS: LEVOTHYROXINE 75 MCG TABLET PO SCH (05:21)
[2017-07-04 05:34] LABS: BASOPHILS # (AUTO) 0.02 10*3/UL; BASOPHILS % (AUTO) 0.2 % (0-1); EOSINOPHILS # (AUTO) 0.27 10*3/UL; EOSINOPHILS % (AUTO) 2.1 % (0-8); Hematocrit [HCT] 32.7 % (42.0-52.0); Hemoglobin [HGB] 10.4 g/dL (14.0-18.0); LYMPHOCYTES # (AUTO) 1.59 10*3/uL; MEAN CORPUSCULAR HEMOGLOBIN 30.1 PG (27-31); MEAN CORPUSCULAR HGB CONC 31.8 g/dL (33-37); MEAN CORPUSCULAR VOLUME 94.8 FL (80-90); MEAN PLATELET VOLUME 9.8 FL (7.4-12.2); MONOCYTES # (AUTO) 1.19 10*3/UL (0.3-0.8); MONOCYTES % (AUTO) 9.2 % (5-15); NEUTROPHILS # (AUTO) 9.73 10*3/UL; NEUTROPHILS % (AUTO) 74.9 % (50-80); RED BLOOD COUNT 3.45 10^6/uL (4.70-6.10)
[2017-07-04 05:43] LABS: BLOOD UREA NITROGEN 15 mg/dL (7-22); BUN/CREATININE RATIO 18.75 (6-20)
[2017-07-04 05:51] LABS: PLATELET MORPHOLOGY COMMENT NORMAL MORPHOLOGY (NORM); RBC MORPHOLOGY COMMENT NORMAL MORPHOLOGY (NORM); WBC MORPHOLOGY COMMENT NORMAL MORPHOLOGY (NORM)
[2017-07-04] MEDS: Spironolactone Tab 25 MG TAB PO SCH (06:58)
[2017-07-04] MEDS: PARoxetine Tab 20 MG TAB PO SCH (08:33)
[2017-07-04] MEDS: OMEPRAZOLE 20 MG CAPSULE PO SCH (08:33)
[2017-07-04] MEDS: FLUCONAZOLE 200 MG TABLET PO SCH (08:33)
[2017-07-04] MEDS: POTASSIUM CHLORIDE 20 MEQ TAB PO SCH (08:34)
--- NOTE | 2017-07-04 09:55 | OT PM DAY ---
Diagnosis : Weakness PM - Occupational Therapy S: The patient reports he is feeling "puny" and he does not have a lot of energy today. O: Today we worked on upper extremity strengthening with red theraband for rows, biceps curls x1 minute, internal/external rotation x1 minute, wrist flexion/extension and pronation/supination x1 minute, and green power web for hand strength. A: The patient completed upper extremity strengthening activities but did fatigue easily today. P: Continue seeing patient BID during the week and one time per day over the weekend for upper extremity strengthening, ADLs, and overall functional mobility. MTDD
--- NOTE | 2017-07-04 11:29 | PT.PROG ---
Progress Note Progress Note: S. Patient stated that he is feeling good this morning. O. Patient ambulated to the therapy gym with OT then performed exercises in the form of; box step ups with #4 box x 15, marvin step overs with airex x8. Patient used the nu-step x 8 minutes. Patient ambulated 175 feet back to his room and left in bed for Dr. Hoda Chavez. Patient tolerated therapy well, he continues to have balance deficits however is making gains with strength. He was unable to perform more exercise due to needing to be returned to his room. Patient would continue to benefit from skilled therapy for balance and strengthening. P. Continue POC.
--- NOTE | 2017-07-04 14:16 | PDOC(PROG) ---
Date and Time of Service: 07/04/2017, 1412 Interval History: No chest pain, shortness breath, nausea or vomiting. I spoke with surgery who took a close look at the ostomy, and it actually appears that there is increased granulation tissue. Either way, does not appear to be leaking stool. We may have to modify the wafer is placed at the 3 o'clock position. Objective : Data - Labs CBC and BMP: 07/04/17 05:23 07/04/17 05:23 Additional Lab Results: Laboratory Results 06/22/17 06/22/17 06/22/17 Range/Units 16:48 16:56 16:56 WBC (4.8-10.8) 10^3/uL RBC (4.70-6.10) 10^6/uL Hgb (14.0-18.0) g/dL Hct (42.0-52.0) % MCV (80-90) FL MCH (27-31) PG MCHC (33-37) g/dL RDW Std Deviation (39-50) fL RDW Coeff of Valerie (11.5-14.5) % Plt Count (140-350) 10*3/uL MPV (7.4-12.2) FL Immature Gran % (Auto) (0-5) % Neut % (Auto) (50-80) % Lymph % (Auto) (10-50) % Al[place]alfa % (Auto) (5-15) % Eos % (Auto) (0-8) % Baso % (Auto) (0-1) % Immature Gran # (Auto) 10*3/UL Neut # (Auto) 10*3/UL Lymph # (Auto) 10*3/uL [place]alfa # (Auto) (0.3-0.8) 10*3/UL Eos # (Auto) 10*3/UL Baso # (Auto) 10*3/UL Neutrophils % (Manual) (50-80) % Band Neutrophils % (0-10) % Lymphocytes % (Manual) (10-50) % Monocytes % (Manual) (0-12) % Eosinophils % (Manual) (0-8) % Basophils % (Manual) (0-1) % Metamyelocytes % Myelocytes % Promyelocytes % Blast Cells WBC Morphology Comment (NORM) Plt Morphology Comment (NORM) RBC Morph Comment (NORM) Sodium (135-145) meq/L Potassium (3.8-5.2) meq/L Chloride (98-112) meq/L Carbon Dioxide (23-33) meq/L Anion Gap (5-20) BUN (7-22) mg/dL Creatinine (0.70-1.50) mg/dL Estimated GFR BUN/Creatinine Ratio (6-20) Glucose (78-110) mg/dL Calculated Osmolality (267-292) mOsm/kg Lactic Acid (0.70-2.10) MMOL/L Calcium (8.7-10.7) mg/dL Magnesium (1.6-2.4) mg/dL Total Bilirubin (0.3-1.2) mg/dL AST (21-57) IU/L ALT (21-72) IU/L Alkaline Phosphatase (38-126) IU/L Troponin I < 0.012 (< 0.040) ng/mL Total Protein (6.1-8.0) g/dL Albumin (3.5-4.8) g/dL Globulin (2.50-4.10) g/dL Albumin/Globulin Ratio (1.3-2.0) mg/g Lipase (23-300) IU/L TSH 2.77 (0.2700-4.2000) uIU/mL Free T4 0.92 L (0.93-1.71) ng/dL Ur Collection Type Clean catch urine Urine Color Yellow Urine Clarity Cloudy (CLEAR) Urine pH 7.0 (5.0-8.5) Ur Specific [place] 1.025 (1.005-1.030) Urine Protein 100 (NEG) mg/dl Urine Glucose (UA) Negative (NEG) mg/dL Urine Ketones Negative (NEG) Urine Occult Blood Moderate (NEG) Urine Nitrate Negative (NEG) Urine Bilirubin Negative (NEG) Urine Urobilinogen 0.2 (0.2) mg/dL Ur Leukocyte Esterase Small (NEG) Urine RBC 4-6 (NONE) /hpf Urine WBC 15-20 (NONE) Ur Squamous Epith Cells None (NONE) Ur Renal Epithelial Cell None (NONE) Urine Crystals Many Urine Bacteria Many (NONE) Urine Casts None Urine Mucus None (NONE) Urine Trichomonas None (NONE) Urine Yeast None (NONE) Ur Culture Indicated? Blood Type Antibody Screen Crossmatch 06/22/17 06/22/17 06/22/17 Range/Units 17:02 17:02 18:00 WBC 11.32 H (4.8-10.8) 10^3/uL RBC 4.44 L (4.70-6.10) 10^6/uL Hgb 13.6 L (14.0-18.0) g/dL Hct 41.8 L (42.0-52.0) % MCV 94.1 H (80-90) FL MCH 30.6 (27-31) PG MCHC 32.5 L (33-37) g/dL RDW Std Deviation 45.3 (39-50) fL RDW Coeff of Valerie 13.6 (11.5-14.5) % Plt Count 213 (140-350) 10*3/uL MPV 10.8 (7.4-12.2) FL Immature Gran % (Auto) 0.1 (0-5) % Neut % (Auto) 85.5 H (50-80) % Lymph % (Auto) 6.1 L (10-50) % Alfalfa % (Auto) 8.2 (5-15) % Eos % (Auto) 0 (0-8) % Baso % (Auto) 0.1 (0-1) % Immature Gran # (Auto) 0.01 10*3/UL Neut # (Auto) 9.68 10*3/UL Lymph # (Auto) 0.69 10*3/uL [place] # (Auto) 0.93 H (0.3-0.8) 10*3/UL Eos # (Auto) 0 10*3/UL Baso # (Auto) 0.01 10*3/UL Neutrophils % (Manual) (50-80) % Band Neutrophils % (0-10) % Lymphocytes % (Manual) (10-50) % Monocytes % (Manual) (0-12) % Eosinophils % (Manual) (0-8) % Basophils % (Manual) (0-1) % Metamyelocytes % Myelocytes % Promyelocytes % Blast Cells WBC Morphology Comment Normal morphology (NORM) Plt Morphology Comment Normal morphology (NORM) RBC Morph Comment Normal morphology (NORM) Sodium 141 (135-145) meq/L Potassium 4.3 (3.8-5.2) meq/L Chloride 93 L (98-112) meq/L Carbon Dioxide 33 (23-33) meq/L Anion Gap 15 (5-20) BUN 33 H (7-22) mg/dL Creatinine 0.9 (0.70-1.50) mg/dL Estimated GFR BUN/Creatinine Ratio 36.66 H (6-20) Glucose 155 H (78-110) mg/dL Calculated Osmolality 301.0 H (267-292) mOsm/kg Lactic Acid 2.3 H (0.70-2.10) MMOL/L Calcium 9.7 (8.7-10.7) mg/dL Magnesium (1.6-2.4) mg/dL Total Bilirubin 1.0 (0.3-1.2) mg/dL AST 42 (21-57) IU/L ALT 29 (21-72) IU/L Alkaline Phosphatase 67 (38-126) IU/L Troponin I (< 0.040) ng/mL Total Protein 7.5 (6.1-8.0) g/dL Albumin 4.4 (3.5-4.8) g/dL Globulin 3.1 (2.50-4.10) g/dL Albumin/Globulin Ratio 1.40 (1.3-2.0) mg/g Lipase 21 L (23-300) IU/L TSH (0.2700-4.2000) uIU/mL Free T4 (0.93-1.71) ng/dL Ur Collection Type Urine Color Urine Clarity (CLEAR) Urine pH (5.0-8.5) Ur Specific [place] (1.005-1.030) Urine Protein (NEG) mg/dl Urine Glucose (UA) (NEG) mg/dL Urine Ketones (NEG) Urine Occult Blood (NEG) Urine Nitrate (NEG) Urine Bilirubin (NEG) Urine Urobilinogen (0.2) mg/dL Ur Leukocyte Esterase (NEG) Urine RBC (NONE) /hpf Urine WBC (NONE) Ur Squamous Epith Cells (NONE) Ur Renal Epithelial Cell (NONE) Urine Crystals Urine Bacteria (NONE) Urine Casts Urine Mucus (NONE) Urine Trichomonas (NONE) Urine Yeast (NONE) Ur Culture Indicated? Blood Type Antibody Screen Crossmatch 06/23/17 06/23/17 06/23/17 Range/Units 05:54 05:54 05:54 WBC 8.06 (4.8-10.8) 10^3/uL RBC 3.89 L (4.70-6.10) 10^6/uL Hgb 11.8 L (14.0-18.0) g/dL Hct 37.3 L (42.0-52.0) % MCV 95.9 H (80-90) FL MCH 30.3 (27-31) PG MCHC 31.6 L (33-37) g/dL RDW Std Deviation 46.5 (39-50) fL RDW Coeff of Valerie 13.7 (11.5-14.5) % Plt Count 175 (140-350) 10*3/uL MPV 11.0 (7.4-12.2) FL Immature Gran % (Auto) 0.1 (0-5) % Neut % (Auto) 80.9 H (50-80) % Lymph % (Auto) 8.4 L (10-50) % [place]alfa % (Auto) 10.5 (5-15) % Eos % (Auto) 0 (0-8) % Baso % (Auto) 0.1 (0-1) % Immature Gran # (Auto) 0.01 10*3/UL Neut # (Auto) 6.51 10*3/UL Lymph # (Auto) 0.68 10*3/uL [place] # (Auto) 0.85 H (0.3-0.8) 10*3/UL Eos # (Auto) 0 10*3/UL Baso # (Auto) 0.01 10*3/UL Neutrophils % (Manual) (50-80) % Band Neutrophils % (0-10) % Lymphocytes % (Manual) (10-50) % Monocytes % (Manual) (0-12) % Eosinophils % (Manual) (0-8) % Basophils % (Manual) (0-1) % Metamyelocytes % Myelocytes % Promyelocytes % Blast Cells WBC Morphology Comment Normal morphology (NORM) Plt Morphology Comment Normal morphology (NORM) RBC Morph Comment Normal morphology (NORM) Sodium 144 (135-145) meq/L Potassium 4.1 (3.8-5.2) meq/L Chloride 101 (98-112) meq/L Carbon Dioxide 32 (23-33) meq/L Anion Gap 11 (5-20) BUN 32 H (7-22) mg/dL Creatinine 0.8 (0.70-1.50) mg/dL Estimated GFR BUN/Creatinine Ratio 40.00 H (6-20) Glucose 126 H (78-110) mg/dL Calculated Osmolality 306.0 H (267-292) mOsm/kg Lactic Acid 1.1 (0.70-2.10) MMOL/L Calcium 8.4 L (8.7-10.7) mg/dL Magnesium (1.6-2.4) mg/dL Total Bilirubin 0.9 (0.3-1.2) mg/dL AST 39 (21-57) IU/L ALT 30 (21-72) IU/L Alkaline Phosphatase 49 (38-126) IU/L Troponin I (< 0.040) ng/mL Total Protein 6.0 L (6.1-8.0) g/dL Albumin 3.4 L (3.5-4.8) g/dL Globulin 2.6 (2.50-4.10) g/dL Albumin/Globulin Ratio 1.30 (1.3-2.0) mg/g Lipase (23-300) IU/L TSH (0.2700-4.2000) uIU/mL Free T4 (0.93-1.71) ng/dL Ur Collection Type Urine Color Urine Clarity (CLEAR) Urine pH (5.0-8.5) Ur Specific [place] (1.005-1.030) Urine Protein (NEG) mg/dl Urine Glucose (UA) (NEG) mg/dL Urine Ketones (NEG) Urine Occult Blood (NEG) Urine Nitrate (NEG) Urine Bilirubin (NEG) Urine Urobilinogen (0.2) mg/dL Ur Leukocyte Esterase (NEG) Urine RBC (NONE) /hpf Urine WBC (NONE) Ur Squamous Epith Cells (NONE) Ur Renal Epithelial Cell (NONE) Urine Crystals Urine Bacteria (NONE) Urine Casts Urine Mucus (NONE) Urine Trichomonas (NONE) Urine Yeast (NONE) Ur Culture Indicated? Blood Type Antibody Screen Crossmatch 06/24/17 06/24/17 06/24/17 Range/Units 06:15 06:15 09:05 WBC 4.57 L (4.8-10.8) 10^3/uL RBC 3.73 L (4.70-6.10) 10^6/uL Hgb 11.5 L (14.0-18.0) g/dL Hct 36.3 L (42.0-52.0) % MCV 97.3 H (80-90) FL MCH 30.8 (27-31) PG MCHC 31.7 L (33-37) g/dL RDW Std Deviation 47.4 (39-50) fL RDW Coeff of Valerie 13.8 (11.5-14.5) % Plt Count 144 (140-350) 10*3/uL MPV 11.1 (7.4-12.2) FL Immature Gran % (Auto) (0-5) % Neut % (Auto) (50-80) % Lymph % (Auto) (10-50) % [place]alfa % (Auto) (5-15) % Eos % (Auto) (0-8) % Baso % (Auto) (0-1) % Immature Gran # (Auto) 10*3/UL Neut # (Auto) 10*3/UL Lymph # (Auto) 10*3/uL [place] # (Auto) (0.3-0.8) 10*3/UL Eos # (Auto) 10*3/UL Baso # (Auto) 10*3/UL Neutrophils % (Manual) 79 (50-80) % Band Neutrophils % 0 (0-10) % Lymphocytes % (Manual) 13 (10-50) % Monocytes % (Manual) 7 (0-12) % Eosinophils % (Manual) 0 (0-8) % Basophils % (Manual) 1 (0-1) % Metamyelocytes % Not Reportable Myelocytes % Not Reportable Promyelocytes % Not Reportable Blast Cells Not Reportable WBC Morphology Comment Normal morphology (NORM) Plt Morphology Comment Normal morphology (NORM) RBC Morph Comment Normal morphology (NORM) Sodium 148 H (135-145) meq/L Potassium 3.5 L (3.8-5.2) meq/L Chloride 109 (98-112) meq/L Carbon Dioxide 25 (23-33) meq/L Anion Gap 14 (5-20) BUN 29 H (7-22) mg/dL Creatinine 0.8 (0.70-1.50) mg/dL Estimated GFR BUN/Creatinine Ratio 36.25 H (6-20) Glucose 88 (78-110) mg/dL Calculated Osmolality 310.0 H (267-292) mOsm/kg Lactic Acid (0.70-2.10) MMOL/L Calcium 7.9 L (8.7-10.7) mg/dL Magnesium (1.6-2.4) mg/dL Total Bilirubin 0.9 (0.3-1.2) mg/dL AST 46 (21-57) IU/L ALT 29 (21-72) IU/L Alkaline Phosphatase 51 (38-126) IU/L Troponin I (< 0.040) ng/mL Total Protein 5.8 L (6.1-8.0) g/dL Albumin 3.2 L (3.5-4.8) g/dL Globulin 2.6 (2.50-4.10) g/dL Albumin/Globulin Ratio 1.20 L (1.3-2.0) mg/g Lipase (23-300) IU/L TSH (0.2700-4.2000) uIU/mL Free T4 (0.93-1.71) ng/dL Ur Collection Type Urine Color Urine Clarity (CLEAR) Urine pH (5.0-8.5) Ur Specific [place] (1.005-1.030) Urine Protein (NEG) mg/dl Urine Glucose (UA) (NEG) mg/dL Urine Ketones (NEG) Urine Occult Blood (NEG) Urine Nitrate (NEG) Urine Bilirubin (NEG) Urine Urobilinogen (0.2) mg/dL Ur Leukocyte Esterase (NEG) Urine RBC (NONE) /hpf Urine WBC (NONE) Ur Squamous Epith Cells (NONE) Ur Renal Epithelial Cell (NONE) Urine Crystals Urine Bacteria (NONE) Urine Casts Urine Mucus (NONE) Urine Trichomonas (NONE) Urine Yeast (NONE) Ur Culture Indicated? Blood Type O NEGATIVE Antibody Screen Negative Crossmatch See Detail 06/25/17 06/25/17 06/26/17 Range/Units 06:05 06:05 05:54 WBC 4.90 7.22 (4.8-10.8) 10^3/uL RBC 3.40 L 3.40 L (4.70-6.10) 10^6/uL Hgb 10.3 L 10.5 L (14.0-18.0) g/dL Hct 33.5 L 33.3 L (42.0-52.0) % MCV 98.5 H 97.9 H (80-90) FL MCH 30.3 30.9 (27-31) PG MCHC 30.7 L 31.5 L (33-37) g/dL RDW Std Deviation 47.6 47.2 (39-50) fL RDW Coeff of Valerie 13.6 13.5 (11.5-14.5) % Plt Count 143 141 (140-350) 10*3/uL MPV 11.4 11.5 (7.4-12.2) FL Immature Gran % (Auto) 0.6 (0-5) % Neut % (Auto) 71.6 (50-80) % Lymph % (Auto) 12.0 (10-50) % [place]alf[place] % (Auto) 13.0 (5-15) % Eos % (Auto) 2.5 (0-8) % Baso % (Auto) 0.3 (0-1) % Immature Gran # (Auto) 0.04 10*3/UL Neut # (Auto) 5.17 10*3/UL Lymph # (Auto) 0.87 10*3/uL [place] # (Auto) 0.94 H (0.3-0.8) 10*3/UL Eos # (Auto) 0.18 10*3/UL Baso # (Auto) 0.02 10*3/UL Neutrophils % (Manual) 69 (50-80) % Band Neutrophils % 1 (0-10) % Lymphocytes % (Manual) 24 (10-50) % Monocytes % (Manual) 6 (0-12) % Eosinophils % (Manual) 0 (0-8) % Basophils % (Manual) 0 (0-1) % Metamyelocytes % Not Reportable Myelocytes % Not Reportable Promyelocytes % Not Reportable Blast Cells Not Reportable WBC Morphology Comment Normal morphology Normal morphology (NORM) Plt Morphology Comment Normal morphology Normal morphology (NORM) RBC Morph Comment Normal morphology Normal morphology (NORM) Sodium 148 H (135-145) meq/L Potassium 3.6 L (3.8-5.2) meq/L Chloride 111 (98-112) meq/L Carbon Dioxide 27 (23-33) meq/L Anion Gap 10 (5-20) BUN 24 H (7-22) mg/dL Creatinine 0.7 (0.70-1.50) mg/dL Estimated GFR BUN/Creatinine Ratio 34.28 H (6-20) Glucose 156 H (78-110) mg/dL Calculated Osmolality 312.0 H (267-292) mOsm/kg Lactic Acid (0.70-2.10) MMOL/L Calcium 7.7 L (8.7-10.7) mg/dL Magnesium (1.6-2.4) mg/dL Total Bilirubin 0.6 (0.3-1.2) mg/dL AST 32 (21-57) IU/L ALT 30 (21-72) IU/L Alkaline Phosphatase 39 (38-126) IU/L Troponin I (< 0.040) ng/mL Total Protein 4.8 L (6.1-8.0) g/dL Albumin 2.5 L (3.5-4.8) g/dL Globulin 2.3 L (2.50-4.10) g/dL Albumin/Globulin Ratio 1.00 L (1.3-2.0) mg/g Lipase (23-300) IU/L TSH (0.2700-4.2000) uIU/mL Free T4 (0.93-1.71) ng/dL Ur Collection Type Urine Color Urine Clarity (CLEAR) Urine pH (5.0-8.5) Ur Specific [place] (1.005-1.030) Urine Protein (NEG) mg/dl Urine Glucose (UA) (NEG) mg/dL Urine Ketones (NEG) Urine Occult Blood (NEG) Urine Nitrate (NEG) Urine Bilirubin (NEG) Urine Urobilinogen (0.2) mg/dL Ur Leukocyte Esterase (NEG) Urine RBC (NONE) /hpf Urine WBC (NONE) Ur Squamous Epith Cells (NONE) Ur Renal Epithelial Cell (NONE) Urine Crystals Urine Bacteria (NONE) Urine Casts Urine Mucus (NONE) Urine Trichomonas (NONE) Urine Yeast (NONE) Ur Culture Indicated? Blood Type Antibody Screen Crossmatch 06/26/17 06/27/17 06/27/17 Range/Units 05:54 06:35 06:35 WBC 9.35 (4.8-10.8) 10^3/uL RBC 3.32 L (4.70-6.10) 10^6/uL Hgb 10.3 L (14.0-18.0) g/dL Hct 32.6 L (42.0-52.0) % MCV 98.2 H (80-90) FL MCH 31.0 (27-31) PG MCHC 31.6 L (33-37) g/dL RDW Std Deviation 46.7 (39-50) fL RDW Coeff of Valerie 13.3 (11.5-14.5) % Plt Count 159 (140-350) 10*3/uL MPV 10.8 (7.4-12.2) FL Immature Gran % (Auto) 0.7 (0-5) % Neut % (Auto) 71.3 (50-80) % Lymph % (Auto) 13.6 (10-50) % [place] % (Auto) 10.4 (5-15) % Eos % (Auto) 3.7 (0-8) % Baso % (Auto) 0.3 (0-1) % Immature Gran # (Auto) 0.07 10*3/UL Neut # (Auto) 6.66 10*3/UL Lymph # (Auto) 1.27 10*3/uL [place] # (Auto) 0.97 H (0.3-0.8) 10*3/UL Eos # (Auto) 0.35 10*3/UL Baso # (Auto) 0.03 10*3/UL Neutrophils % (Manual) (50-80) % Band Neutrophils % (0-10) % Lymphocytes % (Manual) (10-50) % Monocytes % (Manual) (0-12) % Eosinophils % (Manual) (0-8) % Basophils % (Manual) (0-1) % Metamyelocytes % Myelocytes % Promyelocytes % Blast Cells WBC Morphology Comment Normal morphology (NORM) Plt Morphology Comment Normal morphology (NORM) RBC Morph Comment Normal morphology (NORM) Sodium 149 H 148 H (135-145) meq/L Potassium 3.0 L 2.6 L (3.8-5.2) meq/L Chloride 111 107 (98-112) meq/L Carbon Dioxide 28 29 (23-33) meq/L Anion Gap 10 12 (5-20) BUN 17 15 (7-22) mg/dL Creatinine 0.7 0.6 L (0.70-1.50) mg/dL Estimated GFR [employer] BUN/Creatinine Ratio 24.28 H 25.00 H (6-20) Glucose 101 96 (78-110) mg/dL Calculated Osmolality 309.0 H 306.0 H (267-292) mOsm/kg Lactic Acid (0.70-2.10) MMOL/L Calcium 7.8 L 7.8 L (8.7-10.7) mg/dL Magnesium (1.6-2.4) mg/dL Total Bilirubin 0.6 0.7 (0.3-1.2) mg/dL AST 36 43 (21-57) IU/L ALT 35 46 (21-72) IU/L Alkaline Phosphatase 40 53 (38-126) IU/L Troponin I (< 0.040) ng/mL Total Protein 4.8 L 5.1 L (6.1-8.0) g/dL Albumin 2.4 L 2.7 L (3.5-4.8) g/dL Globulin 2.4 L 2.4 L (2.50-4.10) g/dL Albumin/Globulin Ratio 1.00 L 1.10 L (1.3-2.0) mg/g Lipase (23-300) IU/L TSH (0.2700-4.2000) uIU/mL Free T4 (0.93-1.71) ng/dL Ur Collection Type Urine Color Urine Clarity (CLEAR) Urine pH (5.0-8.5) Ur Specific [place] (1.005-1.030) Urine Protein (NEG) mg/dl Urine Glucose (UA) (NEG) mg/dL Urine Ketones (NEG) Urine Occult Blood (NEG) Urine Nitrate (NEG) Urine Bilirubin (NEG) Urine Urobilinogen (0.2) mg/dL Ur Leukocyte Esterase (NEG) Urine RBC (NONE) /hpf Urine WBC (NONE) Ur Squamous Epith Cells (NONE) Ur Renal Epithelial Cell (NONE) Urine Crystals Urine Bacteria (NONE) Urine Casts Urine Mucus (NONE) Urine Trichomonas (NONE) Urine Yeast (NONE) Ur Culture Indicated? Blood Type Antibody Screen Crossmatch 06/27/17 06/27/17 06/28/17 Range/Units 13:00 13:17 06:18 WBC (4.8-10.8) 10^3/uL RBC (4.70-6.10) 10^6/uL Hgb (14.0-18.0) g/dL Hct (42.0-52.0) % MCV (80-90) FL MCH (27-31) PG MCHC (33-37) g/dL RDW Std Deviation (39-50) fL RDW Coeff of Valerie (11.5-14.5) % Plt Count (140-350) 10*3/uL MPV (7.4-12.2) FL Immature Gran % (Auto) (0-5) % Neut % (Auto) (50-80) % Lymph % (Auto) (10-50) % [place]alf[place] % (Auto) (5-15) % Eos % (Auto) (0-8) % Baso % (Auto) (0-1) % Immature Gran # (Auto) 10*3/UL Neut # (Auto) 10*3/UL Lymph # (Auto) 10*3/uL [place] # (Auto) (0.3-0.8) 10*3/UL Eos # (Auto) 10*3/UL Baso # (Auto) 10*3/UL Neutrophils % (Manual) (50-80) % Band Neutrophils % (0-10) % Lymphocytes % (Manual) (10-50) % Monocytes % (Manual) (0-12) % Eosinophils % (Manual) (0-8) % Basophils % (Manual) (0-1) % Metamyelocytes % Myelocytes % Promyelocytes % Blast Cells WBC Morphology Comment (NORM) Plt Morphology Comment (NORM) RBC Morph Comment (NORM) Sodium 144 (135-145) meq/L Potassium 3.4 L 2.8 L (3.8-5.2) meq/L Chloride 107 (98-112) meq/L Carbon Dioxide 28 (23-33) meq/L Anion Gap 9 (5-20) BUN 17 (7-22) mg/dL Creatinine 0.7 (0.70-1.50) mg/dL Estimated GFR [employer] BUN/Creatinine Ratio 24.28 H (6-20) Glucose 93 (78-110) mg/dL Calculated Osmolality 299.0 H (267-292) mOsm/kg Lactic Acid (0.70-2.10) MMOL/L Calcium 7.7 L (8.7-10.7) mg/dL Magnesium 1.9 (1.6-2.4) mg/dL Total Bilirubin (0.3-1.2) mg/dL AST (21-57) IU/L ALT (21-72) IU/L Alkaline Phosphatase (38-126) IU/L Troponin I (< 0.040) ng/mL Total Protein (6.1-8.0) g/dL Albumin (3.5-4.8) g/dL Globulin (2.50-4.10) g/dL Albumin/Globulin Ratio (1.3-2.0) mg/g Lipase (23-300) IU/L TSH (0.2700-4.2000) uIU/mL Free T4 (0.93-1.71) ng/dL Ur Collection Type Urine Color Urine Clarity (CLEAR) Urine pH (5.0-8.5) Ur Specific [place] (1.005-1.030) Urine Protein (NEG) mg/dl Urine Glucose (UA) (NEG) mg/dL Urine Ketones (NEG) Urine Occult Blood (NEG) Urine Nitrate (NEG) Urine Bilirubin (NEG) Urine Urobilinogen (0.2) mg/dL Ur Leukocyte Esterase (NEG) Urine RBC (NONE) /hpf Urine WBC (NONE) Ur Squamous Epith Cells (NONE) Ur Renal Epithelial Cell (NONE) Urine Crystals Urine Bacteria (NONE) Urine Casts Urine Mucus (NONE) Urine Trichomonas (NONE) Urine Yeast (NONE) Ur Culture Indicated? Blood Type Antibody Screen Crossmatch 06/28/17 06/29/17 06/30/17 Range/Units 14:11 06:00 06:00 WBC 13.28 H (4.8-10.8) 10^3/uL RBC 3.27 L (4.70-6.10) 10^6/uL Hgb 9.9 L (14.0-18.0) g/dL Hct 30.9 L (42.0-52.0) % MCV 94.5 H (80-90) FL MCH 30.3 (27-31) PG MCHC 32.0 L (33-37) g/dL RDW Std Deviation 45.1 (39-50) fL RDW Coeff of Valerie 13.5 (11.5-14.5) % Plt Count 258 (140-350) 10*3/uL MPV 11.0 (7.4-12.2) FL Immature Gran % (Auto) 2.0 (0-5) % Neut % (Auto) 69.5 (50-80) % Lymph % (Auto) 16.6 (10-50) % [place]alfa % (Auto) 9.4 (5-15) % Eos % (Auto) 2.3 (0-8) % Baso % (Auto) 0.2 (0-1) % Immature Gran # (Auto) 0.26 10*3/UL Neut # (Auto) 9.23 10*3/UL Lymph # (Auto) 2.20 10*3/uL Al[place]alfa # (Auto) 1.25 H (0.3-0.8) 10*3/UL Eos # (Auto) 0.31 10*3/UL Baso # (Auto) 0.03 10*3/UL Neutrophils % (Manual) (50-80) % Band Neutrophils % (0-10) % Lymphocytes % (Manual) (10-50) % Monocytes % (Manual) (0-12) % Eosinophils % (Manual) (0-8) % Basophils % (Manual) (0-1) % Metamyelocytes % Myelocytes % Promyelocytes % Blast Cells WBC Morphology Comment Normal morphology (NORM) Plt Morphology Comment Normal morphology (NORM) RBC Morph Comment Normal morphology (NORM) Sodium 142 140 (135-145) meq/L Potassium 3.1 L 4.0 (3.8-5.2) meq/L Chloride 106 108 (98-112) meq/L Carbon Dioxide 27 23 (23-33) meq/L Anion Gap 9 9 (5-20) BUN 17 15 (7-22) mg/dL Creatinine 0.7 0.6 L (0.70-1.50) mg/dL Estimated GFR [employer] BUN/Creatinine Ratio 24.28 H 25.00 H (6-20) Glucose 90 147 H (78-110) mg/dL Calculated Osmolality 295.0 H 293.0 H (267-292) mOsm/kg Lactic Acid (0.70-2.10) MMOL/L Calcium 8.1 L 7.5 L (8.7-10.7) mg/dL Magnesium (1.6-2.4) mg/dL Total Bilirubin (0.3-1.2) mg/dL AST (21-57) IU/L ALT (21-72) IU/L Alkaline Phosphatase (38-126) IU/L Troponin I (< 0.040) ng/mL Total Protein (6.1-8.0) g/dL Albumin (3.5-4.8) g/dL Globulin (2.50-4.10) g/dL Albumin/Globulin Ratio (1.3-2.0) mg/g Lipase (23-300) IU/L TSH (0.2700-4.2000) uIU/mL Free T4 (0.93-1.71) ng/dL Ur Collection Type Urine Color Urine Clarity (CLEAR) Urine pH (5.0-8.5) Ur Specific [place] (1.005-1.030) Urine Protein (NEG) mg/dl Urine Glucose (UA) (NEG) mg/dL Urine Ketones (NEG) Urine Occult Blood (NEG) Urine Nitrate (NEG) Urine Bilirubin (NEG) Urine Urobilinogen (0.2) mg/dL Ur Leukocyte Esterase (NEG) Urine RBC (NONE) /hpf Urine WBC (NONE) Ur Squamous Epith Cells (NONE) Ur Renal Epithelial Cell (NONE) Urine Crystals Urine Bacteria (NONE) Urine Casts Urine Mucus (NONE) Urine Trichomonas (NONE) Urine Yeast (NONE) Ur Culture Indicated? Blood Type Antibody Screen Crossmatch 06/30/17 07/01/17 07/01/17 Range/Units 06:00 06:05 06:05 WBC 13.86 H (4.8-10.8) 10^3/uL RBC 3.57 L (4.70-6.10) 10^6/uL Hgb 10.8 L (14.0-18.0) g/dL Hct 33.6 L (42.0-52.0) % MCV 94.1 H (80-90) FL MCH 30.3 (27-31) PG MCHC 32.1 L (33-37) g/dL RDW Std Deviation 44.4 (39-50) fL RDW Coeff of Valerie 13.6 (11.5-14.5) % Plt Count 307 (140-350) 10*3/uL MPV 10.5 (7.4-12.2) FL Immature Gran % (Auto) (0-5) % Neut % (Auto) (50-80) % Lymph % (Auto) (10-50) % Alfalfa % (Auto) (5-15) % Eos % (Auto) (0-8) % Baso % (Auto) (0-1) % Immature Gran # (Auto) 10*3/UL Neut # (Auto) 10*3/UL Lymph # (Auto) 10*3/uL Al[place]alfa # (Auto) (0.3-0.8) 10*3/UL Eos # (Auto) 10*3/UL Baso # (Auto) 10*3/UL Neutrophils % (Manual) (50-80) % Band Neutrophils % (0-10) % Lymphocytes % (Manual) (10-50) % Monocytes % (Manual) (0-12) % Eosinophils % (Manual) (0-8) % Basophils % (Manual) (0-1) % Metamyelocytes % Myelocytes % Promyelocytes % Blast Cells WBC Morphology Comment (NORM) Plt Morphology Comment (NORM) RBC Morph Comment (NORM) Sodium 142 141 (135-145) meq/L Potassium 3.8 3.6 L (3.8-5.2) meq/L Chloride 108 106 (98-112) meq/L Carbon Dioxide 24 25 (23-33) meq/L Anion Gap 10 10 (5-20) BUN 19 12 (7-22) mg/dL Creatinine 0.7 0.7 (0.70-1.50) mg/dL Estimated GFR BUN/Creatinine Ratio 27.14 H 17.14 (6-20) Glucose 86 87 (78-110) mg/dL Calculated Osmolality 294.0 H 290.0 (267-292) mOsm/kg Lactic Acid (0.70-2.10) MMOL/L Calcium 7.7 L 8.2 L (8.7-10.7) mg/dL Magnesium (1.6-2.4) mg/dL Total Bilirubin 0.5 0.7 (0.3-1.2) mg/dL AST 43 39 (21-57) IU/L ALT 41 47 (21-72) IU/L Alkaline Phosphatase 50 59 (38-126) IU/L Troponin I (< 0.040) ng/mL Total Protein 5.2 L 5.9 L (6.1-8.0) g/dL Albumin 2.7 L 3.1 L (3.5-4.8) g/dL Globulin 2.5 2.8 (2.50-4.10) g/dL Albumin/Globulin Ratio 1.00 L 1.10 L (1.3-2.0) mg/g Lipase (23-300) IU/L TSH (0.2700-4.2000) uIU/mL Free T4 (0.93-1.71) ng/dL Ur Collection Type Urine Color Urine Clarity (CLEAR) Urine pH (5.0-8.5) Ur Specific [place] (1.005-1.030) Urine Protein (NEG) mg/dl Urine Glucose (UA) (NEG) mg/dL Urine Ketones (NEG) Urine Occult Blood (NEG) Urine Nitrate (NEG) Urine Bilirubin (NEG) Urine Urobilinogen (0.2) mg/dL Ur Leukocyte Esterase (NEG) Urine RBC (NONE) /hpf Urine WBC (NONE) Ur Squamous Epith Cells (NONE) Ur Renal Epithelial Cell (NONE) Urine Crystals Urine Bacteria (NONE) Urine Casts Urine Mucus (NONE) Urine Trichomonas (NONE) Urine Yeast (NONE) Ur Culture Indicated? Blood Type Antibody Screen Crossmatch 07/01/17 07/02/17 07/02/17 Range/Units 09:00 06:00 06:00 WBC 17.64 H (4.8-10.8) 10^3/uL RBC 3.70 L (4.70-6.10) 10^6/uL Hgb 11.5 L (14.0-18.0) g/dL Hct 34.5 L (42.0-52.0) % MCV 93.2 H (80-90) FL MCH 31.1 H (27-31) PG MCHC 33.3 (33-37) g/dL RDW Std Deviation 45.7 (39-50) fL RDW Coeff of Valerie 13.9 (11.5-14.5) % Plt Count 341 (140-350) 10*3/uL MPV 10.4 (7.4-12.2) FL Immature Gran % (Auto) 1.7 (0-5) % Neut % (Auto) 75.2 (50-80) % Lymph % (Auto) 12.4 (10-50) % Alfalfa % (Auto) 7.5 (5-15) % Eos % (Auto) 2.9 (0-8) % Baso % (Auto) 0.3 (0-1) % Immature Gran # (Auto) 0.30 10*3/UL Neut # (Auto) 13.27 10*3/UL Lymph # (Auto) 2.19 10*3/uL Al[place]alfa # (Auto) 1.32 H (0.3-0.8) 10*3/UL Eos # (Auto) 0.51 10*3/UL Baso # (Auto) 0.05 10*3/UL Neutrophils % (Manual) (50-80) % Band Neutrophils % (0-10) % Lymphocytes % (Manual) (10-50) % Monocytes % (Manual) (0-12) % Eosinophils % (Manual) (0-8) % Basophils % (Manual) (0-1) % Metamyelocytes % Myelocytes % Promyelocytes % Blast Cells WBC Morphology Comment Normal morphology (NORM) Plt Morphology Comment Normal morphology (NORM) RBC Morph Comment Normal morphology (NORM) Sodium 139 (135-145) meq/L Potassium 4.7 D (3.8-5.2) meq/L Chloride 106 (98-112) meq/L Carbon Dioxide 22 L (23-33) meq/L Anion Gap 11 (5-20) BUN 10 (7-22) mg/dL Creatinine 0.7 (0.70-1.50) mg/dL Estimated GFR BUN/Creatinine Ratio 14.28 (6-20) Glucose 94 (78-110) mg/dL Calculated Osmolality 286.0 (267-292) mOsm/kg Lactic Acid (0.70-2.10) MMOL/L Calcium 8.4 L (8.7-10.7) mg/dL Magnesium 1.9 (1.6-2.4) mg/dL Total Bilirubin (0.3-1.2) mg/dL AST (21-57) IU/L ALT (21-72) IU/L Alkaline Phosphatase (38-126) IU/L Troponin I (< 0.040) ng/mL Total Protein (6.1-8.0) g/dL Albumin (3.5-4.8) g/dL Globulin (2.50-4.10) g/dL Albumin/Globulin Ratio (1.3-2.0) mg/g Lipase (23-300) IU/L TSH (0.2700-4.2000) uIU/mL Free T4 (0.93-1.71) ng/dL Ur Collection Type Urine Color Urine Clarity (CLEAR) Urine pH (5.0-8.5) Ur Specific [place] (1.005-1.030) Urine Protein (NEG) mg/dl Urine Glucose (UA) (NEG) mg/dL Urine Ketones (NEG) Urine Occult Blood (NEG) Urine Nitrate (NEG) Urine Bilirubin (NEG) Urine Urobilinogen (0.2) mg/dL Ur Leukocyte Esterase (NEG) Urine RBC (NONE) /hpf Urine WBC (NONE) Ur Squamous Epith Cells (NONE) Ur Renal Epithelial Cell (NONE) Urine Crystals Urine Bacteria (NONE) Urine Casts Urine Mucus (NONE) Urine Trichomonas (NONE) Urine Yeast (NONE) Ur Culture Indicated? Blood Type Antibody Screen Crossmatch 07/02/17 07/03/17 07/03/17 Range/Units 16:19 11:05 11:05 WBC 18.17 H (4.8-10.8) 10^3/uL RBC 3.45 L (4.70-6.10) 10^6/uL Hgb 10.5 L (14.0-18.0) g/dL Hct 33.0 L (42.0-52.0) % MCV 95.7 H (80-90) FL MCH 30.4 (27-31) PG MCHC 31.8 L (33-37) g/dL RDW Std Deviation 46.5 (39-50) fL RDW Coeff of Valerie 14.0 (11.5-14.5) % Plt Count 372 H (140-350) 10*3/uL MPV 9.9 (7.4-12.2) FL Immature Gran % (Auto) 1.2 (0-5) % Neut % (Auto) 83.5 H (50-80) % Lymph % (Auto) 6.9 L (10-50) % Alfalfa % (Auto) 7.2 (5-15) % Eos % (Auto) 1.0 (0-8) % Baso % (Auto) 0.2 (0-1) % Immature Gran # (Auto) 0.22 10*3/UL Neut # (Auto) 15.18 10*3/UL Lymph # (Auto) 1.25 10*3/uL [place]alfa # (Auto) 1.31 H (0.3-0.8) 10*3/UL Eos # (Auto) 0.18 10*3/UL Baso # (Auto) 0.03 10*3/UL Neutrophils % (Manual) (50-80) % Band Neutrophils % (0-10) % Lymphocytes % (Manual) (10-50) % Monocytes % (Manual) (0-12) % Eosinophils % (Manual) (0-8) % Basophils % (Manual) (0-1) % Metamyelocytes % Myelocytes % Promyelocytes % Blast Cells WBC Morphology Comment Normal morphology (NORM) Plt Morphology Comment Normal morphology (NORM) RBC Morph Comment Normal morphology (NORM) Sodium 137 (135-145) meq/L Potassium 5.2 (3.8-5.2) meq/L Chloride 103 (98-112) meq/L Carbon Dioxide 22 L (23-33) meq/L Anion Gap 12 (5-20) BUN 13 (7-22) mg/dL Creatinine 0.9 (0.70-1.50) mg/dL Estimated GFR BUN/Creatinine Ratio 14.44 (6-20) Glucose 89 (78-110) mg/dL Calculated Osmolality 282.0 (267-292) mOsm/kg Lactic Acid (0.70-2.10) MMOL/L Calcium 8.6 L (8.7-10.7) mg/dL Magnesium 1.9 (1.6-2.4) mg/dL Total Bilirubin 0.6 (0.3-1.2) mg/dL AST 41 (21-57) IU/L ALT 42 (21-72) IU/L Alkaline Phosphatase 63 (38-126) IU/L Troponin I (< 0.040) ng/mL Total Protein 6.4 (6.1-8.0) g/dL Albumin 3.5 (3.5-4.8) g/dL Globulin 2.9 (2.50-4.10) g/dL Albumin/Globulin Ratio 1.20 L (1.3-2.0) mg/g Lipase (23-300) IU/L TSH (0.2700-4.2000) uIU/mL Free T4 (0.93-1.71) ng/dL Ur Collection Type Void Urine Color Yellow Urine Clarity Clear (CLEAR) Urine pH 5.5 (5.0-8.5) Ur Specific [place] 1.010 (1.005-1.030) Urine Protein Negative (NEG) mg/dl Urine Glucose (UA) Negative (NEG) mg/dL Urine Ketones Negative (NEG) Urine Occult Blood Small H (NEG) Urine Nitrate Negative (NEG) Urine Bilirubin Negative (NEG) Urine Urobilinogen 0.2 (0.2) mg/dL Ur Leukocyte Esterase Negative (NEG) Urine RBC 0-3 (NONE) /hpf Urine WBC None (NONE) Ur Squamous Epith Cells None (NONE) Ur Renal Epithelial Cell None (NONE) Urine Crystals None Urine Bacteria None (NONE) Urine Casts None Urine Mucus Rare (NONE) Urine Trichomonas None (NONE) Urine Yeast None (NONE) Ur Culture Indicated? Culture not set Blood Type Antibody Screen Crossmatch 07/04/17 07/04/17 Range/Units 05:23 05:23 WBC 12.98 H (4.8-10.8) 10^3/uL RBC 3.45 L (4.70-6.10) 10^6/uL Hgb 10.4 L (14.0-18.0) g/dL Hct 32.7 L (42.0-52.0) % MCV 94.8 H (80-90) FL MCH 30.1 (27-31) PG MCHC 31.8 L (33-37) g/dL RDW Std Deviation 46.1 (39-50) fL RDW Coeff of Valerie 13.9 (11.5-14.5) % Plt Count 385 H (140-350) 10*3/uL MPV 9.8 (7.4-12.2) FL Immature Gran % (Auto) 1.4 (0-5) % Neut % (Auto) 74.9 (50-80) % Lymph % (Auto) 12.2 (10-50) % Alfalfa % (Auto) 9.2 (5-15) % Eos % (Auto) 2.1 (0-8) % Baso % (Auto) 0.2 (0-1) % Immature Gran # (Auto) 0.18 10*3/UL Neut # (Auto) 9.73 10*3/UL Lymph # (Auto) 1.59 10*3/uL [place] # (Auto) 1.19 H (0.3-0.8) 10*3/UL Eos # (Auto) 0.27 10*3/UL Baso # (Auto) 0.02 10*3/UL Neutrophils % (Manual) (50-80) % Band Neutrophils % (0-10) % Lymphocytes % (Manual) (10-50) % Monocytes % (Manual) (0-12) % Eosinophils % (Manual) (0-8) % Basophils % (Manual) (0-1) % Metamyelocytes % Myelocytes % Promyelocytes % Blast Cells WBC Morphology Comment Normal morphology (NORM) Plt Morphology Comment Normal morphology (NORM) RBC Morph Comment Normal morphology (NORM) Sodium 138 (135-145) meq/L Potassium 4.9 (3.8-5.2) meq/L Chloride 105 (98-112) meq/L Carbon Dioxide 23 (23-33) meq/L Anion Gap 10 (5-20) BUN 15 (7-22) mg/dL Creatinine 0.8 (0.70-1.50) mg/dL Estimated GFR BUN/Creatinine Ratio 18.75 (6-20) Glucose 92 (78-110) mg/dL Calculated Osmolality 286.0 (267-292) mOsm/kg Lactic Acid (0.70-2.10) MMOL/L Calcium 8.7 (8.7-10.7) mg/dL Magnesium 2.0 (1.6-2.4) mg/dL Total Bilirubin (0.3-1.2) mg/dL AST (21-57) IU/L ALT (21-72) IU/L Alkaline Phosphatase (38-126) IU/L Troponin I (< 0.040) ng/mL Total Protein (6.1-8.0) g/dL Albumin (3.5-4.8) g/dL Globulin (2.50-4.10) g/dL Albumin/Globulin Ratio (1.3-2.0) mg/g Lipase (23-300) IU/L TSH (0.2700-4.2000) uIU/mL Free T4 (0.93-1.71) ng/dL Ur Collection Type Urine Color Urine Clarity (CLEAR) Urine pH (5.0-8.5) Ur Specific [place] (1.005-1.030) Urine Protein (NEG) mg/dl Urine Glucose (UA) (NEG) mg/dL Urine Ketones (NEG) Urine Occult Blood (NEG) Urine Nitrate (NEG) Urine Bilirubin (NEG) Urine Urobilinogen (0.2) mg/dL Ur Leukocyte Esterase (NEG) Urine RBC (NONE) /hpf Urine WBC (NONE) Ur Squamous Epith Cells (NONE) Ur Renal Epithelial Cell (NONE) Urine Crystals Urine Bacteria (NONE) Urine Casts Urine Mucus (NONE) Urine Trichomonas (NONE) Urine Yeast (NONE) Ur Culture Indicated? Blood Type Antibody Screen Crossmatch Objective : Exam - General General Appearance: No Acute Distress, Cooperative Additional General Exam Details: Vital Signs (24 hrs) Temp Pulse Pulse Pulse Resp BP BP 07/04/17 12:45 97.3 F 71 18 114/57 07/04/17 09:00 97.1 F 77 18 99/49 07/04/17 05:31 07/04/17 04:42 97.8 F 68 20 127/62 07/04/17 01:00 97.2 F 73 20 142/68 07/03/17 21:00 97.9 F 76 20 109/57 07/03/17 19:00 68 66 72 07/03/17 16:26 98.5 F 66 17 131/68 Pulse Ox 07/04/17 12:45 96 07/04/17 09:00 94 07/04/17 05:31 95 07/04/17 04:42 95 07/04/17 01:00 96 07/03/17 21:00 92 07/03/17 19:00 07/03/17 16:26 96 - Head Head Exam: Normal Inspection, Normocephalic, Atraumatic - Eye Eye Exam: No Scleral Icterus - ENT ENT Exam: Mucous Membranes Moist - Respiratory Respiratory Exam: Clear to Auscultation - Bilaterally, Breathing Non Labored - Cardiovascular Cardiovascular Exam: RRR, No Murmur, No Clicks, No Gallops, No Rubs, No JVD - GI/Abdominal GI/Abdominal Exam: Normal Bowel Sounds, Non Tender, Non Distended, Soft Additional GI/Abdominal Exam Details: Ostomy is viable. [place]. Draining stool and tobacco. - Extremities Extremities Exam: No Clubbing Present, No Edema Present, No Cyanosis Present - Neurological Neurological Exam: Alert, Oriented x 3, No Facial Droop, Speech Intact / Clear, Moves All Extremities Equally Assessment and Plan - Patient Problems (1) Bowel obstruction Current Visit: Yes Status: Resolved Priority: High Onset Date: ~06/17/17 Code(s): K56.609 - Unspecified intestinal obstruction, unspecified as to partial versus complete obstruction Qualifiers: Intestinal obstruction type: other intestinal obstruction Intestinal obstruction extent: unspecified extent Qualified Code(s): K56.699 - Other intestinal obstruction unspecified as to partial versus complete obstruction (2) Hx: UTI (urinary tract infection) Current Visit: Yes Status: Acute Code(s): Z87.440 - Personal history of urinary (tract) infections (3) GERD (gastroesophageal reflux disease) Current Visit: Yes Status: Acute Code(s): K21.9 - Gastro-esophageal reflux disease without esophagitis Qualifiers: Esophagitis presence: without esophagitis Qualified Code(s): K21.9 - Gastro -esophageal reflux disease without esophagitis (4) Hypertension Current Visit: Yes Status: Acute Code(s): I10 - Essential (primary) hypertension Qualifiers: Hypertension type: essential hypertension Qualified Code(s): I10 - Essential (primary) hypertension (5) Hypothyroidism Current Visit: Yes Status: Chronic Code(s): E03.9 - Hypothyroidism, unspecified Qualifiers: Hypothyroidism type: acquired Qualified Code(s): E03.9 - Hypothyroidism, unspecified (6) Prostate cancer Current Visit: Yes Status: Acute Code(s): C61 - Malignant neoplasm of prostate (7) History of creation of ostomy Current Visit: Yes Status: Acute Code(s): Z87.898 - Personal history of other specified conditions - Assessment / Plan Additional Assessment/Plan Details: will help the family learn wafer placement and bag placement encouraged by potassium remaining the same or normal, reduce to once daily output is exceeding recorded input, but I wonder about that because I filled his water today (probably has about a liter in today already by noon) check CBC tomorrow hopefully home tomorrow with close followup. surgery wants to continue fluconazole for now; off invanz for 24 hours today.
--- NOTE | 2017-07-04 14:25 | OT.PROG ---
Progress Note Progress Note: S: pt states that he feels better in his shoes today. He wants to go home soon. O: pt was seen in his room and had already completed breakfast and ADL's. He completed functional transfer downstairs with CGA for safety. After finishing up with PT he completed shoulder press with 2# x15, bicep flex 2# x15. He then completed rows, shoulder ext, & IROT with GTB. He completed transfer upstairs where he completed doffing/donning of socks without any adaptive equipment and completed bed mobility Ind. A: pt needs subtle cues on completing functional tasks such as box steps. His balance has been questionable and would recommend assistance during transfers. P: continue per POC.
--- NOTE | 2017-07-04 15:12 | PT.PROG ---
Progress Note Progress Note: S. Patient stated that he is feeling ok this afternoon. He reports that his neck cramps up easily when he looks down a lot. O. Patient ambulated 175 feet to the therapy gym where he used nu-step x 9 minutes, then performed exercises in the from of; long arc quads, marches, ball squeezes, resisted knee flexion, and box step ups (#4 box) all x 10 with 2# and red theraband. Patient performed standing balance activities in the form of; balance grid x 3, and airex stance x 2 minutes. A. Patient tolerated therapy well this afternoon. He continues to struggle with balance deficits when he begins a task however when he focuses on task he is able to correct his balance better. Patient requires CGA to min assist with balance and ambulation. Patient would continue to benefit from skilled therapy at this time. P. Continue POC.
--- NOTE | 2017-07-04 15:58 | OT.PROG ---
Progress Note Progress Note: S: pt stated he is wanting to go home. He was in good spirits. O: pt was seen in his room as and daughter was present and they were playing cards. He completed functional transfer downstairs with CGA for safety. He completed 6 min on UE bike to increase activity tolerance. He then transferred to mat table. He completed standing/dynamic balance activity on air ex while tapping balloon for up to 3-5 min x2. He needed max A x1 to prevent fall and min A x2-3 to prevent fall while on air ex. Pt then completed PT portion of therapy. A: pt's balance still remains off and would recommend CGA for transfers to prevent any falls. P: continue per POC.
--- NOTE | 2017-07-04 16:59 | OT PM DAY ---
Diagnosis : Weakness PM - Occupational Therapy S: Dr. Jones called the occupational therapist to assess the patient's fine motor abilities, sensory, and visual needs for applying the ostomy bag and O: [] A: [] P: Continue seeing patient BID during the week and one time per day over the weekend for transfers, ambulation, and range of motion/strengthening exercises.[] MTDD
[2017-07-04] MEDS: Simvastatin Tab 10 MG TAB PO SCH (20:13)
[2017-07-05] MEDS: LEVOTHYROXINE 75 MCG TABLET PO SCH (05:36)
[2017-07-05 06:04] LABS: BASOPHILS # (AUTO) 0.02 10*3/UL; BASOPHILS % (AUTO) 0.2 % (0-1); EOSINOPHILS # (AUTO) 0.31 10*3/UL; EOSINOPHILS % (AUTO) 2.7 % (0-8); Hematocrit [HCT] 31.5 % (42.0-52.0); Hemoglobin [HGB] 9.9 g/dL (14.0-18.0); LYMPHOCYTES # (AUTO) 1.64 10*3/uL; MEAN CORPUSCULAR HEMOGLOBIN 29.8 PG (27-31); MEAN CORPUSCULAR HGB CONC 31.4 g/dL (33-37); MEAN CORPUSCULAR VOLUME 94.9 FL (80-90); MEAN PLATELET VOLUME 10.2 FL (7.4-12.2); MONOCYTES # (AUTO) 1.24 10*3/UL (0.3-0.8); MONOCYTES % (AUTO) 10.9 % (5-15); NEUTROPHILS # (AUTO) 8.08 10*3/UL; NEUTROPHILS % (AUTO) 70.7 % (50-80); RED BLOOD COUNT 3.32 10^6/uL (4.70-6.10)
[2017-07-05 06:26] LABS: PLATELET MORPHOLOGY COMMENT NORMAL MORPHOLOGY (NORM); RBC MORPHOLOGY COMMENT NORMAL MORPHOLOGY (NORM); WBC MORPHOLOGY COMMENT NORMAL MORPHOLOGY (NORM)
[2017-07-05] MEDS: Spironolactone Tab 25 MG TAB PO SCH (07:25)
--- NOTE | 2017-07-05 08:27 | OT PM DAY ---
Diagnosis : Weakness PM - Occupational Therapy S: Dr. Jones called the occupational therapist to assess the patient's fine motor abilities, sensory, and visual needs for applying the ostomy bag and the wafer. The patient is reporting that his neck hurts when he is in a flexed position for too long of a time when looking at the wafer to apply it as well as the ostomy bag. O: Today Rocio Ruiz RN, the therapist, the patient's , the patient's daughter, and the patient were all in the room to address independence with the wafer and ostomy bag. Today we had the patient filler shredder machine front of a mirror so that he could look in the mirror while taking off of the adhesive and wafer. Today the patient needed cues in order to start the adhesive tape around the wafer. He was instructed to spray the spray in order to take the dressing off. He was cued to do the top part of it and then work his way to the bottom. The patient was able to do this with min assist and moderate verbal cues. Next the patient was cued to clean the stoma area. He was able to do this after verbal cues and some demonstration. The patient then needed cues and a demonstration on how to apply the wafer. Because it is a very large stoma and it droops posteriorly, he does have to cut the wafter in an abnormal circular area from midline on the wafer. He was able to measure it with mod assist, chris it with the marker, and cut with min assist. the patient then applied this with min assist. When it came to applying the actual ostomy bag, the patient stood while his sat in a chair to align to ostomy bag in the ridges. Because of the patient's decreased strength and the patient's decreased hand strength, the was able to align this where it needed to be and push once in order to start the adherence process. The patient was instructed to go along with his thumb along the entire circular ridge of the ostomy bag in order to get a complete seal. A: The patient still requires min assist in order to apply the wafer and the ostomy bag. He does have some decreased strength, but with the patient and his , hopefully they will be able to adhere the type that is coming to their home. Rocio states that the bag and wafer that is coming to the home is a little bit easier to apply than the ones he had today. Also, the patient will need to filler shredder machine front of a mirror so that it does not hurt his cervical region to apply this. P: Continue seeing patient BID during the week and one time per day over the weekend until discharge. KADED
[2017-07-05] MEDS: FLUCONAZOLE 200 MG TABLET PO SCH (08:38)
[2017-07-05] MEDS: OMEPRAZOLE 20 MG CAPSULE PO SCH (08:38)
[2017-07-05] MEDS: PARoxetine Tab 20 MG TAB PO SCH (08:38)
[2017-07-05] MEDS ORDERED: POTASSIUM CHLORIDE 20 MEQ TAB PO SCH (09:00)
--- NOTE | 2017-07-05 12:01 | PT.PROG ---
Progress Note Progress Note: S. Patient stated that he is feeling good today. O. Patient ambulated 175 feet to the therapy gym where he used the nu-step x 10 minutes, then performed balance exercises in the form of; balance grid x 5, airex balance x 3 minutes, tandem stance balance x 3 minutes, sit to stands x 10 , marvin step overs with 3 hurdles, airex pad and #3 box step up. Patient was left with OT for further therapy. A. Patient tolerated therapy well this morning, he continues to struggle with balance however appears to require less help than previously. Patient would continue to benefit from skilled therapy at this time. P. Continue POC.
[2017-07-05 13:01] VITALS: BP 118/62; RESP 18; TEMP 97.8; O2SAT 94
--- NOTE | 2017-07-05 14:05 | DCSUMMARY ---
Hospitalization Summary Admit Date: 06/22/17 Discharge Date: 07/05/17 Primary Diagnosis:: colon obstruction, partial Hospital Course: This is an 86-year-old male that came in with abdominal pain and was found to have imaging consistent with probable obstruction. The patient was treated conservatively with nothing by mouth diet, NG tube management, and surgical management as well, but he failed conservative therapy and went to the operating room. See Dr. Strong's note regarding surgery performed. 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 He had hard stool as well. Postoperatively, the patient developed some hypokalemia and that was replaced. He took a while to form solid stool, and most of his postoperative care was aimed at wound healing, management of leukocytosis which peaked at around 18,000, and then drifted down to about 11,000 at discharge, and management of the ostomy bags. He had therapy involved as well as one of our nurses that is more attuned to ostomy management. We found that his hands were quite weak, and feel that he would benefit from a halfway and therapy on our swing bed. The patient's other medical problems remain stable through the hospital stay. Today, no complaints of chest pain, shortness breath, nausea or vomiting. He says a lot of work to do in terms of his ostomy management, but was able to do about 70% of the test today over about a course of an hour. Assessment and Plan: 1. As per discharge assessments noted 2. Disposition: Patient is discharged to the swing bed. 3. Condition on discharge, stable and improved. 4. Diet: regular diet 5. Activities: resume normal activities, will continue to work with colostomy bag. Physical therapy and occupational therapy will continue with adaptive devices to help with colostomy bag management as well as hand strengthening and conditioning. 6. Follow-Up: 1. Hospital service will continue to manage patient's care on the hospital side 2. 7. Medications at the Time of Discharge: Home Medications Medication Instructions Recorded Confirmed Type Aspirin [Aspir 81] 81 mg PO DAILY 04/19/15 06/22/17 History Cholecalciferol (Vitd3)/Vit K2 [D3 1 tab PO DAILY 04/19/15 06/22/17 History + K2 Dots 1,000 Units Tab] Lutein 1 cap PO BID #60 04/19/15 06/22/17 History Mineral Oil/Petrolatum,White 1 applic TOPICAL PRN PRN 04/19/15 06/22/17 History [Eucerin Creme] Omeprazole 1 cap PO QD #90 04/19/15 06/22/17 History Simvastatin 10 mg PO DAILY 04/19/15 06/22/17 History Soap [Cetaphil] 1 applic TOPICAL PRN PRN 04/19/15 06/22/17 History Sodium Chloride [Saline Nasal 2 spray BUCCAL BID 04/19/15 06/22/17 History [place]] Spironolactone 0.5 tab PO QD #15 04/19/15 06/22/17 History Polyvinyl Alcohol/Povidone/Pf 1 ea OP QD #1 bottle 06/12/16 06/22/17 History [Refresh Classic Eye Drops] L.acidoph,Saliva/B.bif/S.therm 1 cap PO QD #30 cap 09/06/16 06/22/17 Rx [Acidophilus 175 Mg Capsule] Wheat Dextrin [Benefiber] 2 sc PO QD #1 bottle 10/24/16 06/22/17 Rx Levothyroxine Sodium 1 tab PO .QD(EXCEPT SUN.) #90 tab 02/22/17 06/22/17 History Calcium Carb, Citrate/Vit D3 1 ea PO DAILY 06/22/17 06/22/17 History [Calcium + D3 ER Tablet] Paroxetine HCl [Paxil] 40 mg PO DAILY 06/22/17 06/22/17 History 8. Time, care, counseling and coordination of care for this discharge is greater than 30 minutes. Exam - Vitals Vital Signs: Vital Signs Temperature 97.8 F Temperature Source Temporal Artery Scan Pulse Rate [Left Radial] 68 Pulse Rate [Apical] 72 Pulse Rate [Pulse Oximeter] 69 Pulse Rate [Pulse Oximeter 66 Bilateral Radial] Pulse Rate 52 Respiratory Rate 18 Blood Pressure [Right Arm] 118/62 Blood Pressure [Left Arm] 114/57 Blood Pressure 140/76 Pulse Ox 94 Oxygen Flow Rate 2 Oxygen Delivery Method Room Air Height 5 ft 11 in Weight 156 lb 12.8 oz - General General Appearance: No Acute Distress, Cooperative - Head Head Exam: Normal Inspection, Normocephalic, Atraumatic - Eye Eye Exam: POSITIVE: No Scleral Icterus - ENT ENT Exam: POSITIVE: Mucous Membranes Moist - Respiratory Respiratory Exam: POSITIVE: Clear to Auscultation - Bilaterally, Breathing Non Labored - Cardiovascular Cardiovascular Exam: POSITIVE: RRR, No Murmur, No Clicks, No Gallops, No Rubs, No JVD - GI/Abdominal GI/Abdominal Exam: POSITIVE: Normal Bowel Sounds, Non Tender, Non Distended, Soft Additional GI/Abdominal Exam Details: Midline incision is clean, dry, intact, ruddy are removed, Steri-Strips in place. Ostomy site looks viable and pink, no drainage noted. The bag was just being change. He had solid stool earlier. - Extremities Extremities Exam: POSITIVE: No Clubbing Present, No Edema Present, No Cyanosis Present - Neurological Neurological Exam: POSITIVE: Alert, Oriented x 3, Normal Gait, No Facial Droop, Speech Intact / Clear, Moves All Extremities Equally Data Perinent Studies: Laboratory Results 06/22/17 06/22/17 06/22/17 Range/Units 16:48 16:56 16:56 WBC (4.8-10.8) 10^3/uL RBC (4.70-6.10) 10^6/uL Hgb (14.0-18.0) g/dL Hct (42.0-52.0) % MCV (80-90) FL MCH (27-31) PG MCHC (33-37) g/dL RDW Std Deviation (39-50) fL RDW Coeff of Valerie (11.5-14.5) % Plt Count (140-350) 10*3/uL MPV (7.4-12.2) FL Immature Gran % (Auto) (0-5) % Neut % (Auto) (50-80) % Lymph % (Auto) (10-50) % [place] % (Auto) (5-15) % Eos % (Auto) (0-8) % Baso % (Auto) (0-1) % Immature Gran # (Auto) 10*3/UL Neut # (Auto) 10*3/UL Lymph # (Auto) 10*3/uL [place] # (Auto) (0.3-0.8) 10*3/UL Eos # (Auto) 10*3/UL Baso # (Auto) 10*3/UL Neutrophils % (Manual) (50-80) % Band Neutrophils % (0-10) % Lymphocytes % (Manual) (10-50) % Monocytes % (Manual) (0-12) % Eosinophils % (Manual) (0-8) % Basophils % (Manual) (0-1) % Metamyelocytes % Myelocytes % Promyelocytes % Blast Cells WBC Morphology Comment (NORM) Plt Morphology Comment (NORM) RBC Morph Comment (NORM) Sodium (135-145) meq/L Potassium (3.8-5.2) meq/L Chloride (98-112) meq/L Carbon Dioxide (23-33) meq/L Anion Gap (5-20) BUN (7-22) mg/dL Creatinine (0.70-1.50) mg/dL Estimated GFR BUN/Creatinine Ratio (6-20) Glucose (78-110) mg/dL Calculated Osmolality (267-292) mOsm/kg Lactic Acid (0.70-2.10) MMOL/L Calcium (8.7-10.7) mg/dL Magnesium (1.6-2.4) mg/dL Total Bilirubin (0.3-1.2) mg/dL AST (21-57) IU/L ALT (21-72) IU/L Alkaline Phosphatase (38-126) IU/L Troponin I < 0.012 (< 0.040) ng/mL Total Protein (6.1-8.0) g/dL Albumin (3.5-4.8) g/dL Globulin (2.50-4.10) g/dL Albumin/Globulin Ratio (1.3-2.0) mg/g Lipase (23-300) IU/L TSH 2.77 (0.2700-4.2000) uIU/mL Free T4 0.92 L (0.93-1.71) ng/dL Ur Collection Type Clean catch urine Urine Color Yellow Urine Clarity Cloudy (CLEAR) Urine pH 7.0 (5.0-8.5) Ur Specific [place] 1.025 (1.005-1.030) Urine Protein 100 (NEG) mg/dl Urine Glucose (UA) Negative (NEG) mg/dL Urine Ketones Negative (NEG) Urine Occult Blood Moderate (NEG) Urine Nitrate Negative (NEG) Urine Bilirubin Negative (NEG) Urine Urobilinogen 0.2 (0.2) mg/dL Ur Leukocyte Esterase Small (NEG) Urine RBC 4-6 (NONE) /hpf Urine WBC 15-20 (NONE) Ur Squamous Epith Cells None (NONE) Ur Renal Epithelial Cell None (NONE) Urine Crystals Many Urine Bacteria Many (NONE) Urine Casts None Urine Mucus None (NONE) Urine Trichomonas None (NONE) Urine Yeast None (NONE) Ur Culture Indicated? Blood Type Antibody Screen Crossmatch 06/22/17 06/22/17 06/22/17 Range/Units 17:02 17:02 18:00 WBC 11.32 H (4.8-10.8) 10^3/uL RBC 4.44 L (4.70-6.10) 10^6/uL Hgb 13.6 L (14.0-18.0) g/dL Hct 41.8 L (42.0-52.0) % MCV 94.1 H (80-90) FL MCH 30.6 (27-31) PG MCHC 32.5 L (33-37) g/dL RDW Std Deviation 45.3 (39-50) fL RDW Coeff of Valerie 13.6 (11.5-14.5) % Plt Count 213 (140-350) 10*3/uL MPV 10.8 (7.4-12.2) FL Immature Gran % (Auto) 0.1 (0-5) % Neut % (Auto) 85.5 H (50-80) % Lymph % (Auto) 6.1 L (10-50) % [place] % (Auto) 8.2 (5-15) % Eos % (Auto) 0 (0-8) % Baso % (Auto) 0.1 (0-1) % Immature Gran # (Auto) 0.01 10*3/UL Neut # (Auto) 9.68 10*3/UL Lymph # (Auto) 0.69 10*3/uL [place] # (Auto) 0.93 H (0.3-0.8) 10*3/UL Eos # (Auto) 0 10*3/UL Baso # (Auto) 0.01 10*3/UL Neutrophils % (Manual) (50-80) % Band Neutrophils % (0-10) % Lymphocytes % (Manual) (10-50) % Monocytes % (Manual) (0-12) % Eosinophils % (Manual) (0-8) % Basophils % (Manual) (0-1) % Metamyelocytes % Myelocytes % Promyelocytes % Blast Cells WBC Morphology Comment Normal morphology (NORM) Plt Morphology Comment Normal morphology (NORM) RBC Morph Comment Normal morphology (NORM) Sodium 141 (135-145) meq/L Potassium 4.3 (3.8-5.2) meq/L Chloride 93 L (98-112) meq/L Carbon Dioxide 33 (23-33) meq/L Anion Gap 15 (5-20) BUN 33 H (7-22) mg/dL Creatinine 0.9 (0.70-1.50) mg/dL Estimated GFR BUN/Creatinine Ratio 36.66 H (6-20) Glucose 155 H (78-110) mg/dL Calculated Osmolality 301.0 H (267-292) mOsm/kg Lactic Acid 2.3 H (0.70-2.10) MMOL/L Calcium 9.7 (8.7-10.7) mg/dL Magnesium (1.6-2.4) mg/dL Total Bilirubin 1.0 (0.3-1.2) mg/dL AST 42 (21-57) IU/L ALT 29 (21-72) IU/L Alkaline Phosphatase 67 (38-126) IU/L Troponin I (< 0.040) ng/mL Total Protein 7.5 (6.1-8.0) g/dL Albumin 4.4 (3.5-4.8) g/dL Globulin 3.1 (2.50-4.10) g/dL Albumin/Globulin Ratio 1.40 (1.3-2.0) mg/g Lipase 21 L (23-300) IU/L TSH (0.2700-4.2000) uIU/mL Free T4 (0.93-1.71) ng/dL Ur Collection Type Urine Color Urine Clarity (CLEAR) Urine pH (5.0-8.5) Ur Specific [place] (1.005-1.030) Urine Protein (NEG) mg/dl Urine Glucose (UA) (NEG) mg/dL Urine Ketones (NEG) Urine Occult Blood (NEG) Urine Nitrate (NEG) Urine Bilirubin (NEG) Urine Urobilinogen (0.2) mg/dL Ur Leukocyte Esterase (NEG) Urine RBC (NONE) /hpf Urine WBC (NONE) Ur Squamous Epith Cells (NONE) Ur Renal Epithelial Cell (NONE) Urine Crystals Urine Bacteria (NONE) Urine Casts Urine Mucus (NONE) Urine Trichomonas (NONE) Urine Yeast (NONE) Ur Culture Indicated? Blood Type Antibody Screen Crossmatch 06/23/17 06/23/17 06/23/17 Range/Units 05:54 05:54 05:54 WBC 8.06 (4.8-10.8) 10^3/uL RBC 3.89 L (4.70-6.10) 10^6/uL Hgb 11.8 L (14.0-18.0) g/dL Hct 37.3 L (42.0-52.0) % MCV 95.9 H (80-90) FL MCH 30.3 (27-31) PG MCHC 31.6 L (33-37) g/dL RDW Std Deviation 46.5 (39-50) fL RDW Coeff of Valerie 13.7 (11.5-14.5) % Plt Count 175 (140-350) 10*3/uL MPV 11.0 (7.4-12.2) FL Immature Gran % (Auto) 0.1 (0-5) % Neut % (Auto) 80.9 H (50-80) % Lymph % (Auto) 8.4 L (10-50) % [place] % (Auto) 10.5 (5-15) % Eos % (Auto) 0 (0-8) % Baso % (Auto) 0.1 (0-1) % Immature Gran # (Auto) 0.01 10*3/UL Neut # (Auto) 6.51 10*3/UL Lymph # (Auto) 0.68 10*3/uL [place] # (Auto) 0.85 H (0.3-0.8) 10*3/UL Eos # (Auto) 0 10*3/UL Baso # (Auto) 0.01 10*3/UL Neutrophils % (Manual) (50-80) % Band Neutrophils % (0-10) % Lymphocytes % (Manual) (10-50) % Monocytes % (Manual) (0-12) % Eosinophils % (Manual) (0-8) % Basophils % (Manual) (0-1) % Metamyelocytes % Myelocytes % Promyelocytes % Blast Cells WBC Morphology Comment Normal morphology (NORM) Plt Morphology Comment Normal morphology (NORM) RBC Morph Comment Normal morphology (NORM) Sodium 144 (135-145) meq/L Potassium 4.1 (3.8-5.2) meq/L Chloride 101 (98-112) meq/L Carbon Dioxide 32 (23-33) meq/L Anion Gap 11 (5-20) BUN 32 H (7-22) mg/dL Creatinine 0.8 (0.70-1.50) mg/dL Estimated GFR BUN/Creatinine Ratio 40.00 H (6-20) Glucose 126 H (78-110) mg/dL Calculated Osmolality 306.0 H (267-292) mOsm/kg Lactic Acid 1.1 (0.70-2.10) MMOL/L Calcium 8.4 L (8.7-10.7) mg/dL Magnesium (1.6-2.4) mg/dL Total Bilirubin 0.9 (0.3-1.2) mg/dL AST 39 (21-57) IU/L ALT 30 (21-72) IU/L Alkaline Phosphatase 49 (38-126) IU/L Troponin I (< 0.040) ng/mL Total Protein 6.0 L (6.1-8.0) g/dL Albumin 3.4 L (3.5-4.8) g/dL Globulin 2.6 (2.50-4.10) g/dL Albumin/Globulin Ratio 1.30 (1.3-2.0) mg/g Lipase (23-300) IU/L TSH (0.2700-4.2000) uIU/mL Free T4 (0.93-1.71) ng/dL Ur Collection Type Urine Color Urine Clarity (CLEAR) Urine pH (5.0-8.5) Ur Specific [place] (1.005-1.030) Urine Protein (NEG) mg/dl Urine Glucose (UA) (NEG) mg/dL Urine Ketones (NEG) Urine Occult Blood (NEG) Urine Nitrate (NEG) Urine Bilirubin (NEG) Urine Urobilinogen (0.2) mg/dL Ur Leukocyte Esterase (NEG) Urine RBC (NONE) /hpf Urine WBC (NONE) Ur Squamous Epith Cells (NONE) Ur Renal Epithelial Cell (NONE) Urine Crystals Urine Bacteria (NONE) Urine Casts Urine Mucus (NONE) Urine Trichomonas (NONE) Urine Yeast (NONE) Ur Culture Indicated? Blood Type Antibody Screen Crossmatch 06/24/17 06/24/17 06/24/17 Range/Units 06:15 06:15 09:05 WBC 4.57 L (4.8-10.8) 10^3/uL RBC 3.73 L (4.70-6.10) 10^6/uL Hgb 11.5 L (14.0-18.0) g/dL Hct 36.3 L (42.0-52.0) % MCV 97.3 H (80-90) FL MCH 30.8 (27-31) PG MCHC 31.7 L (33-37) g/dL RDW Std Deviation 47.4 (39-50) fL RDW Coeff of Valerie 13.8 (11.5-14.5) % Plt Count 144 (140-350) 10*3/uL MPV 11.1 (7.4-12.2) FL Immature Gran % (Auto) (0-5) % Neut % (Auto) (50-80) % Lymph % (Auto) (10-50) % [place] % (Auto) (5-15) % Eos % (Auto) (0-8) % Baso % (Auto) (0-1) % Immature Gran # (Auto) 10*3/UL Neut # (Auto) 10*3/UL Lymph # (Auto) 10*3/uL [place] # (Auto) (0.3-0.8) 10*3/UL Eos # (Auto) 10*3/UL Baso # (Auto) 10*3/UL Neutrophils % (Manual) 79 (50-80) % Band Neutrophils % 0 (0-10) % Lymphocytes % (Manual) 13 (10-50) % Monocytes % (Manual) 7 (0-12) % Eosinophils % (Manual) 0 (0-8) % Basophils % (Manual) 1 (0-1) % Metamyelocytes % Not Reportable Myelocytes % Not Reportable Promyelocytes % Not Reportable Blast Cells Not Reportable WBC Morphology Comment Normal morphology (NORM) Plt Morphology Comment Normal morphology (NORM) RBC Morph Comment Normal morphology (NORM) Sodium 148 H (135-145) meq/L Potassium 3.5 L (3.8-5.2) meq/L Chloride 109 (98-112) meq/L Carbon Dioxide 25 (23-33) meq/L Anion Gap 14 (5-20) BUN 29 H (7-22) mg/dL Creatinine 0.8 (0.70-1.50) mg/dL Estimated GFR BUN/Creatinine Ratio 36.25 H (6-20) Glucose 88 (78-110) mg/dL Calculated Osmolality 310.0 H (267-292) mOsm/kg Lactic Acid (0.70-2.10) MMOL/L Calcium 7.9 L (8.7-10.7) mg/dL Magnesium (1.6-2.4) mg/dL Total Bilirubin 0.9 (0.3-1.2) mg/dL AST 46 (21-57) IU/L ALT 29 (21-72) IU/L Alkaline Phosphatase 51 (38-126) IU/L Troponin I (< 0.040) ng/mL Total Protein 5.8 L (6.1-8.0) g/dL Albumin 3.2 L (3.5-4.8) g/dL Globulin 2.6 (2.50-4.10) g/dL Albumin/Globulin Ratio 1.20 L (1.3-2.0) mg/g Lipase (23-300) IU/L TSH (0.2700-4.2000) uIU/mL Free T4 (0.93-1.71) ng/dL Ur Collection Type Urine Color Urine Clarity (CLEAR) Urine pH (5.0-8.5) Ur Specific [place] (1.005-1.030) Urine Protein (NEG) mg/dl Urine Glucose (UA) (NEG) mg/dL Urine Ketones (NEG) Urine Occult Blood (NEG) Urine Nitrate (NEG) Urine Bilirubin (NEG) Urine Urobilinogen (0.2) mg/dL Ur Leukocyte Esterase (NEG) Urine RBC (NONE) /hpf Urine WBC (NONE) Ur Squamous Epith Cells (NONE) Ur Renal Epithelial Cell (NONE) Urine Crystals Urine Bacteria (NONE) Urine Casts Urine Mucus (NONE) Urine Trichomonas (NONE) Urine Yeast (NONE) Ur Culture Indicated? Blood Type O NEGATIVE Antibody Screen Negative Crossmatch See Detail 06/25/17 06/25/17 06/26/17 Range/Units 06:05 06:05 05:54 WBC 4.90 7.22 (4.8-10.8) 10^3/uL RBC 3.40 L 3.40 L (4.70-6.10) 10^6/uL Hgb 10.3 L 10.5 L (14.0-18.0) g/dL Hct 33.5 L 33.3 L (42.0-52.0) % MCV 98.5 H 97.9 H (80-90) FL MCH 30.3 30.9 (27-31) PG MCHC 30.7 L 31.5 L (33-37) g/dL RDW Std Deviation 47.6 47.2 (39-50) fL RDW Coeff of Valerie 13.6 13.5 (11.5-14.5) % Plt Count 143 141 (140-350) 10*3/uL MPV 11.4 11.5 (7.4-12.2) FL Immature Gran % (Auto) 0.6 (0-5) % Neut % (Auto) 71.6 (50-80) % Lymph % (Auto) 12.0 (10-50) % [place] % (Auto) 13.0 (5-15) % Eos % (Auto) 2.5 (0-8) % Baso % (Auto) 0.3 (0-1) % Immature Gran # (Auto) 0.04 10*3/UL Neut # (Auto) 5.17 10*3/UL Lymph # (Auto) 0.87 10*3/uL [place] # (Auto) 0.94 H (0.3-0.8) 10*3/UL Eos # (Auto) 0.18 10*3/UL Baso # (Auto) 0.02 10*3/UL Neutrophils % (Manual) 69 (50-80) % Band Neutrophils % 1 (0-10) % Lymphocytes % (Manual) 24 (10-50) % Monocytes % (Manual) 6 (0-12) % Eosinophils % (Manual) 0 (0-8) % Basophils % (Manual) 0 (0-1) % Metamyelocytes % Not Reportable Myelocytes % Not Reportable Promyelocytes % Not Reportable Blast Cells Not Reportable WBC Morphology Comment Normal morphology Normal morphology (NORM) Plt Morphology Comment Normal morphology Normal morphology (NORM) RBC Morph Comment Normal morphology Normal morphology (NORM) Sodium 148 H (135-145) meq/L Potassium 3.6 L (3.8-5.2) meq/L Chloride 111 (98-112) meq/L Carbon Dioxide 27 (23-33) meq/L Anion Gap 10 (5-20) BUN 24 H (7-22) mg/dL Creatinine 0.7 (0.70-1.50) mg/dL Estimated GFR BUN/Creatinine Ratio 34.28 H (6-20) Glucose 156 H (78-110) mg/dL Calculated Osmolality 312.0 H (267-292) mOsm/kg Lactic Acid (0.70-2.10) MMOL/L Calcium 7.7 L (8.7-10.7) mg/dL Magnesium (1.6-2.4) mg/dL Total Bilirubin 0.6 (0.3-1.2) mg/dL AST 32 (21-57) IU/L ALT 30 (21-72) IU/L Alkaline Phosphatase 39 (38-126) IU/L Troponin I (< 0.040) ng/mL Total Protein 4.8 L (6.1-8.0) g/dL Albumin 2.5 L (3.5-4.8) g/dL Globulin 2.3 L (2.50-4.10) g/dL Albumin/Globulin Ratio 1.00 L (1.3-2.0) mg/g Lipase (23-300) IU/L TSH (0.2700-4.2000) uIU/mL Free T4 (0.93-1.71) ng/dL Ur Collection Type Urine Color Urine Clarity (CLEAR) Urine pH (5.0-8.5) Ur Specific [place] (1.005-1.030) Urine Protein (NEG) mg/dl Urine Glucose (UA) (NEG) mg/dL Urine Ketones (NEG) Urine Occult Blood (NEG) Urine Nitrate (NEG) Urine Bilirubin (NEG) Urine Urobilinogen (0.2) mg/dL Ur Leukocyte Esterase (NEG) Urine RBC (NONE) /hpf Urine WBC (NONE) Ur Squamous Epith Cells (NONE) Ur Renal Epithelial Cell (NONE) Urine Crystals Urine Bacteria (NONE) Urine Casts Urine Mucus (NONE) Urine Trichomonas (NONE) Urine Yeast (NONE) Ur Culture Indicated? Blood Type Antibody Screen Crossmatch 06/26/17 06/27/17 06/27/17 Range/Units 05:54 06:35 06:35 WBC 9.35 (4.8-10.8) 10^3/uL RBC 3.32 L (4.70-6.10) 10^6/uL Hgb 10.3 L (14.0-18.0) g/dL Hct 32.6 L (42.0-52.0) % MCV 98.2 H (80-90) FL MCH 31.0 (27-31) PG MCHC 31.6 L (33-37) g/dL RDW Std Deviation 46.7 (39-50) fL RDW Coeff of Valerie 13.3 (11.5-14.5) % Plt Count 159 (140-350) 10*3/uL MPV 10.8 (7.4-12.2) FL Immature Gran % (Auto) 0.7 (0-5) % Neut % (Auto) 71.3 (50-80) % Lymph % (Auto) 13.6 (10-50) % [place] % (Auto) 10.4 (5-15) % Eos % (Auto) 3.7 (0-8) % Baso % (Auto) 0.3 (0-1) % Immature Gran # (Auto) 0.07 10*3/UL Neut # (Auto) 6.66 10*3/UL Lymph # (Auto) 1.27 10*3/uL [place] # (Auto) 0.97 H (0.3-0.8) 10*3/UL Eos # (Auto) 0.35 10*3/UL Baso # (Auto) 0.03 10*3/UL Neutrophils % (Manual) (50-80) % Band Neutrophils % (0-10) % Lymphocytes % (Manual) (10-50) % Monocytes % (Manual) (0-12) % Eosinophils % (Manual) (0-8) % Basophils % (Manual) (0-1) % Metamyelocytes % Myelocytes % Promyelocytes % Blast Cells WBC Morphology Comment Normal morphology (NORM) Plt Morphology Comment Normal morphology (NORM) RBC Morph Comment Normal morphology (NORM) Sodium 149 H 148 H (135-145) meq/L Potassium 3.0 L 2.6 L (3.8-5.2) meq/L Chloride 111 107 (98-112) meq/L Carbon Dioxide 28 29 (23-33) meq/L Anion Gap 10 12 (5-20) BUN 17 15 (7-22) mg/dL Creatinine 0.7 0.6 L (0.70-1.50) mg/dL Estimated GFR [place] BUN/Creatinine Ratio 24.28 H 25.00 H (6-20) Glucose 101 96 (78-110) mg/dL Calculated Osmolality 309.0 H 306.0 H (267-292) mOsm/kg Lactic Acid (0.70-2.10) MMOL/L Calcium 7.8 L 7.8 L (8.7-10.7) mg/dL Magnesium (1.6-2.4) mg/dL Total Bilirubin 0.6 0.7 (0.3-1.2) mg/dL AST 36 43 (21-57) IU/L ALT 35 46 (21-72) IU/L Alkaline Phosphatase 40 53 (38-126) IU/L Troponin I (< 0.040) ng/mL Total Protein 4.8 L 5.1 L (6.1-8.0) g/dL Albumin 2.4 L 2.7 L (3.5-4.8) g/dL Globulin 2.4 L 2.4 L (2.50-4.10) g/dL Albumin/Globulin Ratio 1.00 L 1.10 L (1.3-2.0) mg/g Lipase (23-300) IU/L TSH (0.2700-4.2000) uIU/mL Free T4 (0.93-1.71) ng/dL Ur Collection Type Urine Color Urine Clarity (CLEAR) Urine pH (5.0-8.5) Ur Specific [place] (1.005-1.030) Urine Protein (NEG) mg/dl Urine Glucose (UA) (NEG) mg/dL Urine Ketones (NEG) Urine Occult Blood (NEG) Urine Nitrate (NEG) Urine Bilirubin (NEG) Urine Urobilinogen (0.2) mg/dL Ur Leukocyte Esterase (NEG) Urine RBC (NONE) /hpf Urine WBC (NONE) Ur Squamous Epith Cells (NONE) Ur Renal Epithelial Cell (NONE) Urine Crystals Urine Bacteria (NONE) Urine Casts Urine Mucus (NONE) Urine Trichomonas (NONE) Urine Yeast (NONE) Ur Culture Indicated? Blood Type Antibody Screen Crossmatch 06/27/17 06/27/17 06/28/17 Range/Units 13:00 13:17 06:18 WBC (4.8-10.8) 10^3/uL RBC (4.70-6.10) 10^6/uL Hgb (14.0-18.0) g/dL Hct (42.0-52.0) % MCV (80-90) FL MCH (27-31) PG MCHC (33-37) g/dL RDW Std Deviation (39-50) fL RDW Coeff of Valerie (11.5-14.5) % Plt Count (140-350) 10*3/uL MPV (7.4-12.2) FL Immature Gran % (Auto) (0-5) % Neut % (Auto) (50-80) % Lymph % (Auto) (10-50) % [place] % (Auto) (5-15) % Eos % (Auto) (0-8) % Baso % (Auto) (0-1) % Immature Gran # (Auto) 10*3/UL Neut # (Auto) 10*3/UL Lymph # (Auto) 10*3/uL [place] # (Auto) (0.3-0.8) 10*3/UL Eos # (Auto) 10*3/UL Baso # (Auto) 10*3/UL Neutrophils % (Manual) (50-80) % Band Neutrophils % (0-10) % Lymphocytes % (Manual) (10-50) % Monocytes % (Manual) (0-12) % Eosinophils % (Manual) (0-8) % Basophils % (Manual) (0-1) % Metamyelocytes % Myelocytes % Promyelocytes % Blast Cells WBC Morphology Comment (NORM) Plt Morphology Comment (NORM) RBC Morph Comment (NORM) Sodium 144 (135-145) meq/L Potassium 3.4 L 2.8 L (3.8-5.2) meq/L Chloride 107 (98-112) meq/L Carbon Dioxide 28 (23-33) meq/L Anion Gap 9 (5-20) BUN 17 (7-22) mg/dL Creatinine 0.7 (0.70-1.50) mg/dL Estimated GFR Fisher Mussel BUN/Creatinine Ratio 24.28 H (6-20) Glucose 93 (78-110) mg/dL Calculated Osmolality 299.0 H (267-292) mOsm/kg Lactic Acid (0.70-2.10) MMOL/L Calcium 7.7 L (8.7-10.7) mg/dL Magnesium 1.9 (1.6-2.4) mg/dL Total Bilirubin (0.3-1.2) mg/dL AST (21-57) IU/L ALT (21-72) IU/L Alkaline Phosphatase (38-126) IU/L Troponin I (< 0.040) ng/mL Total Protein (6.1-8.0) g/dL Albumin (3.5-4.8) g/dL Globulin (2.50-4.10) g/dL Albumin/Globulin Ratio (1.3-2.0) mg/g Lipase (23-300) IU/L TSH (0.2700-4.2000) uIU/mL Free T4 (0.93-1.71) ng/dL Ur Collection Type Urine Color Urine Clarity (CLEAR) Urine pH (5.0-8.5) Ur Specific [place] (1.005-1.030) Urine Protein (NEG) mg/dl Urine Glucose (UA) (NEG) mg/dL Urine Ketones (NEG) Urine Occult Blood (NEG) Urine Nitrate (NEG) Urine Bilirubin (NEG) Urine Urobilinogen (0.2) mg/dL Ur Leukocyte Esterase (NEG) Urine RBC (NONE) /hpf Urine WBC (NONE) Ur Squamous Epith Cells (NONE) Ur Renal Epithelial Cell (NONE) Urine Crystals Urine Bacteria (NONE) Urine Casts Urine Mucus (NONE) Urine Trichomonas (NONE) Urine Yeast (NONE) Ur Culture Indicated? Blood Type Antibody Screen Crossmatch 06/28/17 06/29/17 06/30/17 Range/Units 14:11 06:00 06:00 WBC 13.28 H (4.8-10.8) 10^3/uL RBC 3.27 L (4.70-6.10) 10^6/uL Hgb 9.9 L (14.0-18.0) g/dL Hct 30.9 L (42.0-52.0) % MCV 94.5 H (80-90) FL MCH 30.3 (27-31) PG MCHC 32.0 L (33-37) g/dL RDW Std Deviation 45.1 (39-50) fL RDW Coeff of Valerie 13.5 (11.5-14.5) % Plt Count 258 (140-350) 10*3/uL MPV 11.0 (7.4-12.2) FL Immature Gran % (Auto) 2.0 (0-5) % Neut % (Auto) 69.5 (50-80) % Lymph % (Auto) 16.6 (10-50) % [place] % (Auto) 9.4 (5-15) % Eos % (Auto) 2.3 (0-8) % Baso % (Auto) 0.2 (0-1) % Immature Gran # (Auto) 0.26 10*3/UL Neut # (Auto) 9.23 10*3/UL Lymph # (Auto) 2.20 10*3/uL [place] # (Auto) 1.25 H (0.3-0.8) 10*3/UL Eos # (Auto) 0.31 10*3/UL Baso # (Auto) 0.03 10*3/UL Neutrophils % (Manual) (50-80) % Band Neutrophils % (0-10) % Lymphocytes % (Manual) (10-50) % Monocytes % (Manual) (0-12) % Eosinophils % (Manual) (0-8) % Basophils % (Manual) (0-1) % Metamyelocytes % Myelocytes % Promyelocytes % Blast Cells WBC Morphology Comment Normal morphology (NORM) Plt Morphology Comment Normal morphology (NORM) RBC Morph Comment Normal morphology (NORM) Sodium 142 140 (135-145) meq/L Potassium 3.1 L 4.0 (3.8-5.2) meq/L Chloride 106 108 (98-112) meq/L Carbon Dioxide 27 23 (23-33) meq/L Anion Gap 9 9 (5-20) BUN 17 15 (7-22) mg/dL Creatinine 0.7 0.6 L (0.70-1.50) mg/dL Estimated GFR Fisher Mussel BUN/Creatinine Ratio 24.28 H 25.00 H (6-20) Glucose 90 147 H (78-110) mg/dL Calculated Osmolality 295.0 H 293.0 H (267-292) mOsm/kg Lactic Acid (0.70-2.10) MMOL/L Calcium 8.1 L 7.5 L (8.7-10.7) mg/dL Magnesium (1.6-2.4) mg/dL Total Bilirubin (0.3-1.2) mg/dL AST (21-57) IU/L ALT (21-72) IU/L Alkaline Phosphatase (38-126) IU/L Troponin I (< 0.040) ng/mL Total Protein (6.1-8.0) g/dL Albumin (3.5-4.8) g/dL Globulin (2.50-4.10) g/dL Albumin/Globulin Ratio (1.3-2.0) mg/g Lipase (23-300) IU/L TSH (0.2700-4.2000) uIU/mL Free T4 (0.93-1.71) ng/dL Ur Collection Type Urine Color Urine Clarity (CLEAR) Urine pH (5.0-8.5) Ur Specific [place] (1.005-1.030) Urine Protein (NEG) mg/dl Urine Glucose (UA) (NEG) mg/dL Urine Ketones (NEG) Urine Occult Blood (NEG) Urine Nitrate (NEG) Urine Bilirubin (NEG) Urine Urobilinogen (0.2) mg/dL Ur Leukocyte Esterase (NEG) Urine RBC (NONE) /hpf Urine WBC (NONE) Ur Squamous Epith Cells (NONE) Ur Renal Epithelial Cell (NONE) Urine Crystals Urine Bacteria (NONE) Urine Casts Urine Mucus (NONE) Urine Trichomonas (NONE) Urine Yeast (NONE) Ur Culture Indicated? Blood Type Antibody Screen Crossmatch 06/30/17 07/01/17 07/01/17 Range/Units 06:00 06:05 06:05 WBC 13.86 H (4.8-10.8) 10^3/uL RBC 3.57 L (4.70-6.10) 10^6/uL Hgb 10.8 L (14.0-18.0) g/dL Hct 33.6 L (42.0-52.0) % MCV 94.1 H (80-90) FL MCH 30.3 (27-31) PG MCHC 32.1 L (33-37) g/dL RDW Std Deviation 44.4 (39-50) fL RDW Coeff of Valerie 13.6 (11.5-14.5) % Plt Count 307 (140-350) 10*3/uL MPV 10.5 (7.4-12.2) FL Immature Gran % (Auto) (0-5) % Neut % (Auto) (50-80) % Lymph % (Auto) (10-50) % [place] % (Auto) (5-15) % Eos % (Auto) (0-8) % Baso % (Auto) (0-1) % Immature Gran # (Auto) 10*3/UL Neut # (Auto) 10*3/UL Lymph # (Auto) 10*3/uL [place] # (Auto) (0.3-0.8) 10*3/UL Eos # (Auto) 10*3/UL Baso # (Auto) 10*3/UL Neutrophils % (Manual) (50-80) % Band Neutrophils % (0-10) % Lymphocytes % (Manual) (10-50) % Monocytes % (Manual) (0-12) % Eosinophils % (Manual) (0-8) % Basophils % (Manual) (0-1) % Metamyelocytes % Myelocytes % Promyelocytes % Blast Cells WBC Morphology Comment (NORM) Plt Morphology Comment (NORM) RBC Morph Comment (NORM) Sodium 142 141 (135-145) meq/L Potassium 3.8 3.6 L (3.8-5.2) meq/L Chloride 108 106 (98-112) meq/L Carbon Dioxide 24 25 (23-33) meq/L Anion Gap 10 10 (5-20) BUN 19 12 (7-22) mg/dL Creatinine 0.7 0.7 (0.70-1.50) mg/dL Estimated GFR BUN/Creatinine Ratio 27.14 H 17.14 (6-20) Glucose 86 87 (78-110) mg/dL Calculated Osmolality 294.0 H 290.0 (267-292) mOsm/kg Lactic Acid (0.70-2.10) MMOL/L Calcium 7.7 L 8.2 L (8.7-10.7) mg/dL Magnesium (1.6-2.4) mg/dL Total Bilirubin 0.5 0.7 (0.3-1.2) mg/dL AST 43 39 (21-57) IU/L ALT 41 47 (21-72) IU/L Alkaline Phosphatase 50 59 (38-126) IU/L Troponin I (< 0.040) ng/mL Total Protein 5.2 L 5.9 L (6.1-8.0) g/dL Albumin 2.7 L 3.1 L (3.5-4.8) g/dL Globulin 2.5 2.8 (2.50-4.10) g/dL Albumin/Globulin Ratio 1.00 L 1.10 L (1.3-2.0) mg/g Lipase (23-300) IU/L TSH (0.2700-4.2000) uIU/mL Free T4 (0.93-1.71) ng/dL Ur Collection Type Urine Color Urine Clarity (CLEAR) Urine pH (5.0-8.5) Ur Specific [place] (1.005-1.030) Urine Protein (NEG) mg/dl Urine Glucose (UA) (NEG) mg/dL Urine Ketones (NEG) Urine Occult Blood (NEG) Urine Nitrate (NEG) Urine Bilirubin (NEG) Urine Urobilinogen (0.2) mg/dL Ur Leukocyte Esterase (NEG) Urine RBC (NONE) /hpf Urine WBC (NONE) Ur Squamous Epith Cells (NONE) Ur Renal Epithelial Cell (NONE) Urine Crystals Urine Bacteria (NONE) Urine Casts Urine Mucus (NONE) Urine Trichomonas (NONE) Urine Yeast (NONE) Ur Culture Indicated? Blood Type Antibody Screen Crossmatch 07/01/17 07/02/17 07/02/17 Range/Units 09:00 06:00 06:00 WBC 17.64 H (4.8-10.8) 10^3/uL RBC 3.70 L (4.70-6.10) 10^6/uL Hgb 11.5 L (14.0-18.0) g/dL Hct 34.5 L (42.0-52.0) % MCV 93.2 H (80-90) FL MCH 31.1 H (27-31) PG MCHC 33.3 (33-37) g/dL RDW Std Deviation 45.7 (39-50) fL RDW Coeff of Valerie 13.9 (11.5-14.5) % Plt Count 341 (140-350) 10*3/uL MPV 10.4 (7.4-12.2) FL Immature Gran % (Auto) 1.7 (0-5) % Neut % (Auto) 75.2 (50-80) % Lymph % (Auto) 12.4 (10-50) % [place] % (Auto) 7.5 (5-15) % Eos % (Auto) 2.9 (0-8) % Baso % (Auto) 0.3 (0-1) % Immature Gran # (Auto) 0.30 10*3/UL Neut # (Auto) 13.27 10*3/UL Lymph # (Auto) 2.19 10*3/uL [place] # (Auto) 1.32 H (0.3-0.8) 10*3/UL Eos # (Auto) 0.51 10*3/UL Baso # (Auto) 0.05 10*3/UL Neutrophils % (Manual) (50-80) % Band Neutrophils % (0-10) % Lymphocytes % (Manual) (10-50) % Monocytes % (Manual) (0-12) % Eosinophils % (Manual) (0-8) % Basophils % (Manual) (0-1) % Metamyelocytes % Myelocytes % Promyelocytes % Blast Cells WBC Morphology Comment Normal morphology (NORM) Plt Morphology Comment Normal morphology (NORM) RBC Morph Comment Normal morphology (NORM) Sodium 139 (135-145) meq/L Potassium 4.7 D (3.8-5.2) meq/L Chloride 106 (98-112) meq/L Carbon Dioxide 22 L (23-33) meq/L Anion Gap 11 (5-20) BUN 10 (7-22) mg/dL Creatinine 0.7 (0.70-1.50) mg/dL Estimated GFR BUN/Creatinine Ratio 14.28 (6-20) Glucose 94 (78-110) mg/dL Calculated Osmolality 286.0 (267-292) mOsm/kg Lactic Acid (0.70-2.10) MMOL/L Calcium 8.4 L (8.7-10.7) mg/dL Magnesium 1.9 (1.6-2.4) mg/dL Total Bilirubin (0.3-1.2) mg/dL AST (21-57) IU/L ALT (21-72) IU/L Alkaline Phosphatase (38-126) IU/L Troponin I (< 0.040) ng/mL Total Protein (6.1-8.0) g/dL Albumin (3.5-4.8) g/dL Globulin (2.50-4.10) g/dL Albumin/Globulin Ratio (1.3-2.0) mg/g Lipase (23-300) IU/L TSH (0.2700-4.2000) uIU/mL Free T4 (0.93-1.71) ng/dL Ur Collection Type Urine Color Urine Clarity (CLEAR) Urine pH (5.0-8.5) Ur Specific [place] (1.005-1.030) Urine Protein (NEG) mg/dl Urine Glucose (UA) (NEG) mg/dL Urine Ketones (NEG) Urine Occult Blood (NEG) Urine Nitrate (NEG) Urine Bilirubin (NEG) Urine Urobilinogen (0.2) mg/dL Ur Leukocyte Esterase (NEG) Urine RBC (NONE) /hpf Urine WBC (NONE) Ur Squamous Epith Cells (NONE) Ur Renal Epithelial Cell (NONE) Urine Crystals Urine Bacteria (NONE) Urine Casts Urine Mucus (NONE) Urine Trichomonas (NONE) Urine Yeast (NONE) Ur Culture Indicated? Blood Type Antibody Screen Crossmatch 07/02/17 07/03/17 07/03/17 Range/Units 16:19 11:05 11:05 WBC 18.17 H (4.8-10.8) 10^3/uL RBC 3.45 L (4.70-6.10) 10^6/uL Hgb 10.5 L (14.0-18.0) g/dL Hct 33.0 L (42.0-52.0) % MCV 95.7 H (80-90) FL MCH 30.4 (27-31) PG MCHC 31.8 L (33-37) g/dL RDW Std Deviation 46.5 (39-50) fL RDW Coeff of Valerie 14.0 (11.5-14.5) % Plt Count 372 H (140-350) 10*3/uL MPV 9.9 (7.4-12.2) FL Immature Gran % (Auto) 1.2 (0-5) % Neut % (Auto) 83.5 H (50-80) % Lymph % (Auto) 6.9 L (10-50) % [place] % (Auto) 7.2 (5-15) % Eos % (Auto) 1.0 (0-8) % Baso % (Auto) 0.2 (0-1) % Immature Gran # (Auto) 0.22 10*3/UL Neut # (Auto) 15.18 10*3/UL Lymph # (Auto) 1.25 10*3/uL [place] # (Auto) 1.31 H (0.3-0.8) 10*3/UL Eos # (Auto) 0.18 10*3/UL Baso # (Auto) 0.03 10*3/UL Neutrophils % (Manual) (50-80) % Band Neutrophils % (0-10) % Lymphocytes % (Manual) (10-50) % Monocytes % (Manual) (0-12) % Eosinophils % (Manual) (0-8) % Basophils % (Manual) (0-1) % Metamyelocytes % Myelocytes % Promyelocytes % Blast Cells WBC Morphology Comment Normal morphology (NORM) Plt Morphology Comment Normal morphology (NORM) RBC Morph Comment Normal morphology (NORM) Sodium 137 (135-145) meq/L Potassium 5.2 (3.8-5.2) meq/L Chloride 103 (98-112) meq/L Carbon Dioxide 22 L (23-33) meq/L Anion Gap 12 (5-20) BUN 13 (7-22) mg/dL Creatinine 0.9 (0.70-1.50) mg/dL Estimated GFR BUN/Creatinine Ratio 14.44 (6-20) Glucose 89 (78-110) mg/dL Calculated Osmolality 282.0 (267-292) mOsm/kg Lactic Acid (0.70-2.10) MMOL/L Calcium 8.6 L (8.7-10.7) mg/dL Magnesium 1.9 (1.6-2.4) mg/dL Total Bilirubin 0.6 (0.3-1.2) mg/dL AST 41 (21-57) IU/L ALT 42 (21-72) IU/L Alkaline Phosphatase 63 (38-126) IU/L Troponin I (< 0.040) ng/mL Total Protein 6.4 (6.1-8.0) g/dL Albumin 3.5 (3.5-4.8) g/dL Globulin 2.9 (2.50-4.10) g/dL Albumin/Globulin Ratio 1.20 L (1.3-2.0) mg/g Lipase (23-300) IU/L TSH (0.2700-4.2000) uIU/mL Free T4 (0.93-1.71) ng/dL Ur Collection Type Void Urine Color Yellow Urine Clarity Clear (CLEAR) Urine pH 5.5 (5.0-8.5) Ur Specific [place] 1.010 (1.005-1.030) Urine Protein Negative (NEG) mg/dl Urine Glucose (UA) Negative (NEG) mg/dL Urine Ketones Negative (NEG) Urine Occult Blood Small H (NEG) Urine Nitrate Negative (NEG) Urine Bilirubin Negative (NEG) Urine Urobilinogen 0.2 (0.2) mg/dL Ur Leukocyte Esterase Negative (NEG) Urine RBC 0-3 (NONE) /hpf Urine WBC None (NONE) Ur Squamous Epith Cells None (NONE) Ur Renal Epithelial Cell None (NONE) Urine Crystals None Urine Bacteria None (NONE) Urine Casts None Urine Mucus Rare (NONE) Urine Trichomonas None (NONE) Urine Yeast None (NONE) Ur Culture Indicated? Culture not set Blood Type Antibody Screen Crossmatch 07/04/17 07/04/17 07/05/17 Range/Units 05:23 05:23 04:59 WBC 12.98 H 11.42 H (4.8-10.8) 10^3/uL RBC 3.45 L 3.32 L (4.70-6.10) 10^6/uL Hgb 10.4 L 9.9 L (14.0-18.0) g/dL Hct 32.7 L 31.5 L (42.0-52.0) % MCV 94.8 H 94.9 H (80-90) FL MCH 30.1 29.8 (27-31) PG MCHC 31.8 L 31.4 L (33-37) g/dL RDW Std Deviation 46.1 45.9 (39-50) fL RDW Coeff of Valerie 13.9 13.8 (11.5-14.5) % Plt Count 385 H 408 H (140-350) 10*3/uL MPV 9.8 10.2 (7.4-12.2) FL Immature Gran % (Auto) 1.4 1.1 (0-5) % Neut % (Auto) 74.9 70.7 (50-80) % Lymph % (Auto) 12.2 14.4 (10-50) % [place] % (Auto) 9.2 10.9 (5-15) % Eos % (Auto) 2.1 2.7 (0-8) % Baso % (Auto) 0.2 0.2 (0-1) % Immature Gran # (Auto) 0.18 0.13 10*3/UL Neut # (Auto) 9.73 8.08 10*3/UL Lymph # (Auto) 1.59 1.64 10*3/uL [place] # (Auto) 1.19 H 1.24 H (0.3-0.8) 10*3/UL Eos # (Auto) 0.27 0.31 10*3/UL Baso # (Auto) 0.02 0.02 10*3/UL Neutrophils % (Manual) (50-80) % Band Neutrophils % (0-10) % Lymphocytes % (Manual) (10-50) % Monocytes % (Manual) (0-12) % Eosinophils % (Manual) (0-8) % Basophils % (Manual) (0-1) % Metamyelocytes % Myelocytes % Promyelocytes % Blast Cells WBC Morphology Comment Normal morphology Normal morphology (NORM) Plt Morphology Comment Normal morphology Normal morphology (NORM) RBC Morph Comment Normal morphology Normal morphology (NORM) Sodium 138 (135-145) meq/L Potassium 4.9 (3.8-5.2) meq/L Chloride 105 (98-112) meq/L Carbon Dioxide 23 (23-33) meq/L Anion Gap 10 (5-20) BUN 15 (7-22) mg/dL Creatinine 0.8 (0.70-1.50) mg/dL Estimated GFR BUN/Creatinine Ratio 18.75 (6-20) Glucose 92 (78-110) mg/dL Calculated Osmolality 286.0 (267-292) mOsm/kg Lactic Acid (0.70-2.10) MMOL/L Calcium 8.7 (8.7-10.7) mg/dL Magnesium 2.0 (1.6-2.4) mg/dL Total Bilirubin (0.3-1.2) mg/dL AST (21-57) IU/L ALT (21-72) IU/L Alkaline Phosphatase (38-126) IU/L Troponin I (< 0.040) ng/mL Total Protein (6.1-8.0) g/dL Albumin (3.5-4.8) g/dL Globulin (2.50-4.10) g/dL Albumin/Globulin Ratio (1.3-2.0) mg/g Lipase (23-300) IU/L TSH (0.2700-4.2000) uIU/mL Free T4 (0.93-1.71) ng/dL Ur Collection Type Urine Color Urine Clarity (CLEAR) Urine pH (5.0-8.5) Ur Specific [place] (1.005-1.030) Urine Protein (NEG) mg/dl Urine Glucose (UA) (NEG) mg/dL Urine Ketones (NEG) Urine Occult Blood (NEG) Urine Nitrate (NEG) Urine Bilirubin (NEG) Urine Urobilinogen (0.2) mg/dL Ur Leukocyte Esterase (NEG) Urine RBC (NONE) /hpf Urine WBC (NONE) Ur Squamous Epith Cells (NONE) Ur Renal Epithelial Cell (NONE) Urine Crystals Urine Bacteria (NONE) Urine Casts Urine Mucus (NONE) Urine Trichomonas (NONE) Urine Yeast (NONE) Ur Culture Indicated? Blood Type Antibody Screen Crossmatch Patient Problems - Patient Problem List (1) Bowel obstruction Status: Resolved Onset Date: ~06/17/17 Priority: High Code(s): K56.609 - Unspecified intestinal obstruction, unspecified as to partial versus complete obstruction Qualifiers: Intestinal obstruction type: other intestinal obstruction Intestinal obstruction extent: unspecified extent Qualified Code(s): K56.699 - Other intestinal obstruction unspecified as to partial versus complete obstruction Category: Medical (2) Hx: UTI (urinary tract infection) Status: Acute Code(s): Z87.440 - Personal history of urinary (tract) infections Category: Medical (3) GERD (gastroesophageal reflux disease) Status: Acute Code(s): K21.9 - Gastro-esophageal reflux disease without esophagitis Qualifiers: Esophagitis presence: without esophagitis Qualified Code(s): K21.9 - Gastro -esophageal reflux disease without esophagitis Category: Medical (4) Hypertension Status: Acute Code(s): I10 - Essential (primary) hypertension Qualifiers: Hypertension type: essential hypertension Qualified Code(s): I10 - Essential (primary) hypertension Category: Medical (5) Hypothyroidism Status: Chronic Code(s): E03.9 - Hypothyroidism, unspecified Qualifiers: Hypothyroidism type: acquired Qualified Code(s): E03.9 - Hypothyroidism, unspecified Category: Medical (6) Prostate cancer Status: Acute Code(s): C61 - Malignant neoplasm of prostate Category: Medical (7) History of creation of ostomy Status: Acute Code(s): Z87.898 - Personal history of other specified conditions Category: Surgical
--- NOTE | 2017-07-06 12:30 | OT AM DAY ---
Diagnosis : WEAKNESS AM - Occupational Therapy S: Patient states he is still struggling with the application of his ostomy bag. His and him were present during the session along with the nurse Rocio Ruiz. Occupational therapy has lined out a step by step program for them to follow to doff the wafer, to don the wafer, and to don the ostomy bag. O: Today occupational therapist was with patient and nursing for 45 minutes to go through the step by step program, and to have the patient practice this. Patient had difficulty doffing the wafer bag, his had to spray the adhesive with a non adhesive spray and help pull it off of his skin. Patient was able to clean 75% of his skin, but needed assistance with 25% of his skin. Patient was read instructions step by step he had difficulty cutting a [place] in the wafer bag, this indicates he does have decreased hang strength, his tried as well, but also has decreased hand strength. Patient has a little difficulty knowing where to put the wafer with the stoma being slightly angulated, and needed que's for this as well as que's to take off both sets of adhesives on the back of the wafer. Patient was then able to place it on with mid assist, after this patient forgot to put the abhesive on and around the skin and needed que's for this, and mid assist from his in order to complete. They were able to push the bag on with verbal que's and mid assist, but max assist in order to roll the bag. We worked on upper extremity strengthening activities, and fine motor strength, as this is one goal that Dr. Altamirano really wants him to focus on. Patient was given red puddy with tip pinch finger adduction and gross grass, along with wall pulleys with 3kg for shoulder extension, rows, biceps curls. internal and external rotation, and shoulder adduction times 10 reps a piece. A: At this time patient is still needing assistance even with his 's assistance in order to complete the bag. His is not in the greatest of shape in order to help him do this. As a team we all decided patient will benefit from swing bed program to work on fine motor strength, working on activities like being able to cut thicker materials better and to be more independent with application of Distoma. P: Continue seeing patient BID during the week and one time per day over the weekend for transfers, ambulation, and range of motion/strengthening exercises.[] MTDD
== END 2017-07-05 13:14 | disposition swing bed (61) | DRG 331 ==
LOC: ER 16:28 → MED/SURG 18:14 → OPS 06-24 09:01 → MED/SURG 06-24 14:03
PROVIDERS: ADMIT Family Medicine; ATTEND Family Medicine

== ENCOUNTER 2017-11-02 06:53 | Inpatient (IN) ==
[~2017-11-02 06:53] MED LIST: BUPivacaine Liposome/PF (Exparel) Inj 20ml vial INFIL ONE; ERTAPENEM 1 GM VIAL ONE; Ertapenem Inj 1 GM in Sodium Chloride 0.9% 100 ML IV ONE; LIDOCAINE W/ SODIUM BICARB 0.5 ML SYR ONE; LIDOCAINE W/ SODIUM BICARB 0.5 ML SYR SUBD ONE; Lactated Ringers 1,000 ML PRIMARY IV ONE; Lactated Ringers 1,000 ML PRIMARY IV SCH; Sodium Chloride 0.9% 100 ML IV ONE
[2017-11-02] MEDS ORDERED: MIDAZOLAM 5 MG/1 ML ONE (07:11)
[2017-11-02] MEDS ORDERED: PROPOFOL 10 MG/1 ML (200 MG/20 ML) VIAL IV ONE (07:11)
[2017-11-02] MEDS ORDERED: LIDOCAINE MPF 2% - 5 ML (20 MG/1 ML) ONE ×2 (07:11→10:35)
[2017-11-02] MEDS ORDERED: fentaNYL Inj 250 MCG/5 ML VIAL ONE (07:11)
[2017-11-02] MEDS ORDERED: ROCURONIUM 10 MG/1 ML - 5 ML VIAL IVP ONE ×2 (07:12→09:06)
[2017-11-02] MEDS ORDERED: LIDOCAINE HCL 2 % 10 ML JELLY URO-JECT TOPICAL ONE (08:08)
[2017-11-02] MEDS ORDERED: KETAMINE 100 MG/1 ML - 5 ML ONE (08:33)
[2017-11-02] MEDS ORDERED: Lactated Ringers 1,000 ML PRIMARY IV ONE ×3 (08:43→10:07)
[2017-11-02] MEDS ORDERED: HYDROmorphone 2 MG/1 ML ONE (08:55)
[2017-11-02] MEDS ORDERED: NORMAL SALINE 10 ML SYRINGE FLUSH IVP PRN (09:28)
[2017-11-02] MEDS ORDERED: HYDROmorphone 2 MG/1 ML IVP PRN ×2 (09:28→12:46)
[2017-11-02] MEDS ORDERED: ONDANSETRON 4 MG/2 ML VIAL IVP PRN ×2 (09:28→12:46)
[2017-11-02] MEDS ORDERED: LIDOCAINE W/ SODIUM BICARB 0.5 ML SYR SUBD PRN (09:28)
[2017-11-02] MEDS ORDERED: SUGAMMADEX SODIUM 200 MG/2 ML VIAL IV ONE (10:25)
[2017-11-02] MEDS ORDERED: BUPivacaine Liposome/PF (Exparel) Inj 20ml vial INFIL ONE (10:32)
[2017-11-02] MEDS ORDERED: Bacteriostatic NaCl Inj 30ml Vial ONE (10:32)
[2017-11-02] MEDS ORDERED: Sodium Chloride 0.9% vial 10 ML ONE (10:32)
[2017-11-02] MEDS ORDERED: KETOROLAC 30 MG/1 ML VIAL ONE (10:46)
--- NOTE | 2017-11-02 11:17 | CRNA.PROGR ---
Anesthesia Recovery Phase I - Post Anesthesia Evaluation Patient's Condition on Arrival in Phase I: Stable Patient's Condition on Arrival in Phase II: Stable Pain Level: 1
--- NOTE | 2017-11-02 11:18 | CRNA.PROGR ---
Anesthesia Time - - Start date: 11/02/17 End date: 11/02/17 - Procedure/Recovery Time Anesthesia : Time In: 07:55 Anesthesia : Time Out: 11:17 Anesthesia : Total Time: 202 - Total Anesthesia Time Total Anesthesia Time (minutes): 202 - Other Weight: 71.668 kg Height: 5 ft 11 in Body Mass Index (BMI): 22.0 Physical Status: P3 Anesthesia Type: General Anesthesia : ET
--- NOTE | 2017-11-02 11:25 | GEN.OPNOTE ---
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 Postoperative Diagnosis: Same. Procedure: Closure of colostomy with bowel resection and colorectal anastomosis , eg, closure of Menard's procedure. Surgeon: Kalen Strong MD Landscape Drafter: Keshawn Britton MD Anesthesia Provider: Hay Macias CRNA Anesthesia Type: General Estimated Blood Loss (mL): 250 Fluids: 3400 mL of crystalloid. 1 g of IV Invanz at the start of the procedure. 15 mg of IV Toradol at the end of the procedure. Pathology: Specimens to pathology included the colostomy, the distal colon section or rectal stump, and the anastomotic rings. Indications: Patient with colostomy for reversal. Findings: Quite a few small bowel adhesions. No pathology. The rectal stump was embedded in scar tissue. We had to clear it and resect several inches to do an adequate anastomosis. Complications: None. Operative Summary: The patient was taken to the operating suite and placed on the operating table in the supine position. Following the induction of general anesthetic the patient was placed in low universal stirrups. The colostomy was sewn closed with 2-0 silk sutures. A Samano catheter was placed. The abdomen and perineum were prepped and draped in a sterile fashion. A surgical timeout was done. The midline incision was opened. The dissection was carried down to the fascia which was incised with electrocautery. The peritoneum was elevated and incised. Omental adhesions to the anterior abdominal wall were taken down circumferentially. An Hudson retractor was placed. The small bowel was freed from the pelvis. There was quite a bit of scar tissue and adhesions holding the bowel together. There was no areas of obstruction. The bowel was checked for serosal injuries and there was nothing of significance. The bowel was packed out of the pelvis. Attention was turned to the colostomy. It was freed from the anterior abdominal wall circumferentially. Attention was turned to the outside. An ellipse was cut in the skin. The dissection was carried down along the stoma to the fascia. The colostomy was freed entirely could be reduced through the abdominal wall and into the abdominal cavity. It was long enough that once we brought it through the defect we could hang it over the edge of the abdominal opening and out of the abdominal cavity. The fascia at the colostomy site was closed transversely with #1 Vicryl sutures. We had a very nice closure. Hemostasis was assured. Attention was turned to the proximal bowel. It was cleared of the paracolonic tissue just proximal to the colostomy. A pursestring clamp was placed on the bowel and closed. 2-0 Maxon suture was used to perform the pursestring. The bowel was amputated and removed from the operative field. The bowel was opened and accepted a 31 mm endoluminal stapling anvil. The pursestring suture was tied. Attention was turned to the pelvis. The rectal stump was freed up. We tried to pass some dilators and the stapler through the existing rectal stump but there was too much scar tissue. We had to free up the scar tissue circumferentially on the rectal stump. It was shortened about 2-3 inches using a linear 60 stapler. Then it was easy to pass the dilators and the stapler into the rectal stump. The trocar was advanced through the end of the rectal stump. The stapling device was placed together. The device was closed and fired and removed. There was 2 good anastomotic rings. A bowel clamp was placed on the proximal bowel. A colonoscope was inserted. The anastomosis was widely patent. There was no significant bleeding. The pelvis was full of fluid and there was no evidence of a leak. There was no tension on the anastomosis. The air was aspirated and the colonoscope was removed. At this point in the procedure all personnel changed gowns and gloves. The abdomen was extensively irrigated. Hemostasis was assured. The intestinal contents were returned to a relative anatomic position and covered with omentum. The midline fascia was closed with running #1 Vicryl. The wounds were irrigated. Both wounds were infiltrated with Exparel circumferentially. The skin was then reapproximated with surgical ruddy followed by sterile dressing. The patient tolerated all aspects of the procedure well without complication. He was taken to the PACU in stable condition. All counts were correct.
[2017-11-02] MEDS: D5-LR + 20mEq KCL 1,000 ML PRIMARY IV SCH ×2 (14:05→22:35)
[2017-11-02] MEDS: KETOROLAC 15 MG/1 ML VIAL IVP SCH ×2 (16:55→22:36)
[2017-11-03 05:14] LABS: BLOOD UREA NITROGEN 17 mg/dL (7-22); BUN/CREATININE RATIO 24.28 (6-20); SERUM ALBUMIN 3.2 g/dL (3.5-4.8)
[2017-11-03 05:23] LABS: BASOPHILS # (AUTO) 0 10*3/UL; BASOPHILS % (AUTO) 0 % (0-1); EOSINOPHILS # (AUTO) 0.01 10*3/UL; EOSINOPHILS % (AUTO) 0.1 % (0-8); Hematocrit [HCT] 32.7 % (42.0-52.0); Hemoglobin [HGB] 10.3 g/dL (14.0-18.0); LYMPHOCYTES # (AUTO) 0.79 10*3/uL; MEAN CORPUSCULAR HEMOGLOBIN 29.3 PG (27-31); MEAN CORPUSCULAR HGB CONC 31.5 g/dL (33-37); MEAN CORPUSCULAR VOLUME 93.2 FL (80-90); MEAN PLATELET VOLUME 10.4 FL (7.4-12.2); MONOCYTES # (AUTO) 0.83 10*3/UL (0.3-0.8); MONOCYTES % (AUTO) 8.2 % (5-15); NEUTROPHILS # (AUTO) 8.44 10*3/UL; NEUTROPHILS % (AUTO) 83.6 % (50-80); RED BLOOD COUNT 3.51 10^6/uL (4.70-6.10)
[2017-11-03 05:45] LABS: PLATELET MORPHOLOGY COMMENT NORMAL MORPHOLOGY (NORM); RBC MORPHOLOGY COMMENT NORMAL MORPHOLOGY (NORM); WBC MORPHOLOGY COMMENT NORMAL MORPHOLOGY (NORM)
[2017-11-03] MEDS: D5-LR + 20mEq KCL 1,000 ML PRIMARY IV SCH ×3 (06:08→14:58)
[2017-11-03] MEDS: KETOROLAC 15 MG/1 ML VIAL IVP SCH ×4 (06:09→23:32)
[2017-11-03] MEDS: Acetaminophen 1000mg Inj 1,000 MG/100 ML VIAL IV PRN ×2 (07:12→21:01)
[2017-11-03] MEDS ORDERED: Ertapenem Inj 1 GM in Sodium Chloride 0.9% 100 ML IV SCH (08:00)
[2017-11-03] MEDS: Pantoprazole Inj 40 MG in Normal Saline Flush 10 ML IVP SCH (08:40)
[2017-11-03] MEDS: Spironolactone Tab 25 MG TAB PO SCH (08:41)
[2017-11-03] MEDS: VENLAFAXINE XR 75 MG CAP PO SCH (08:41)
--- NOTE | 2017-11-03 10:17 | CRNA.PROGR ---
Anesthesia Note - Progress Notes Anesthesia Progress Note: Post OP anesthesia Note Pt is up ambulating and doing ADL's, Alert and Oriented. He remains on ice chips only at this time. He denies any residual issues from the general anesthetic. He states that his pain is well under control. Current VS are stable. Vital Signs (Last 8 hours) Temp Pulse Resp BP Pulse Ox 11/03/17 06:59 98 F 60 20 134/89 98 11/03/17 05:36 91 11/03/17 05:00 97.9 F 63 18 142/74 97
[2017-11-03] MEDS ORDERED: HYDROmorphone 2 MG/1 ML IVP PRN (13:34)
--- NOTE | 2017-11-03 13:40 | PDOC(PROG) ---
Subjective Post Op Day: 1 Pain Management: IV Tylenol, Toradol, and Dilaudid. Samano Catheter: Yes Flatus: No Diet: Clear Liquids (Limited amounts) Ambulating: Yes Date and Time of Service: 11/03/2017 1:30 PM Interval History: Overall doing very well. No complaints or problems. Pain is well controlled. He has ambulated. No flatus or bowel movement. Would like to try some liquids. He looks great. He is awake, alert, and bright. He looks like he has not had surgery. Objective : Data - Labs CBC and BMP: 11/03/17 04:30 11/03/17 04:30 - Vital Signs Vital Signs and I&O: Vital Signs - Last Taken Temperature 97.9 F 11/03/17 12:13 Pulse Rate 54 L 11/03/17 12:13 Respiratory Rate 20 11/03/17 12:13 Blood Pressure 154/78 11/03/17 12:13 Pulse Ox 99 11/03/17 12:13 Intake and Output (24hr x 4 totals) 11/01/17 11/02/17 11/03/17 11/04/17 05:59 05:59 05:59 06:59 Intake Total 4154 / 4154 1530 / 1530 Output Total 2074 / 2075 Balance 207 / 2079 1530 / 1530 Objective : Exam - General General Appearance: No Acute Distress, Cooperative - Respiratory Respiratory Exam: Clear to Auscultation - Bilaterally, Breathing Non Labored - Cardiovascular Cardiovascular Exam: RRR, No Murmur - GI/Abdominal GI/Abdominal Exam: Non Distended, Soft, Diminished Bowel Sounds Additional GI/Abdominal Exam Details: The abdomen is soft with bowel tones. There are still hypoactive. There is incisional tenderness. There is some dried blood on the dressing. - Neurological Neurological Exam: Alert, Oriented x 3 - Psychiatric Psychiatric Exam: Normal Affect, Normal Mood Assessment and Plan - Patient Problems (1) Status post colostomy takedown Current Visit: Yes Status: Acute Priority: High Onset Date: 11/02/17 Comment: Doing very well. Continue postoperative care. We'll decrease his IV fluids. Check a.m. labs. We will start small amounts of clear liquids. Encouraged ambulation and incentive spirometry. Discussed with the patient and family. The patient is doing very well. Code(s): Z98.890 - Other specified postprocedural states
[2017-11-04] MEDS: D5-LR + 20mEq KCL 1,000 ML PRIMARY IV SCH ×2 (04:05→12:08)
[2017-11-04 05:16] LABS: BASOPHILS # (AUTO) 0.01 10*3/UL; BASOPHILS % (AUTO) 0.1 % (0-1); EOSINOPHILS # (AUTO) 0.26 10*3/UL; Hematocrit [HCT] 33.9 % (42.0-52.0); Hemoglobin [HGB] 10.7 g/dL (14.0-18.0); LYMPHOCYTES # (AUTO) 1.02 10*3/uL; MEAN CORPUSCULAR HEMOGLOBIN 29.6 PG (27-31); MEAN CORPUSCULAR HGB CONC 31.6 g/dL (33-37); MEAN CORPUSCULAR VOLUME 93.9 FL (80-90); MEAN PLATELET VOLUME 10.8 FL (7.4-12.2); MONOCYTES # (AUTO) 0.87 10*3/UL (0.3-0.8); RED BLOOD COUNT 3.61 10^6/uL (4.70-6.10)
[2017-11-04 05:20] LABS: PLATELET MORPHOLOGY COMMENT NORMAL MORPHOLOGY (NORM); RBC MORPHOLOGY COMMENT NORMAL MORPHOLOGY (NORM); WBC MORPHOLOGY COMMENT NORMAL MORPHOLOGY (NORM)
[2017-11-04 05:31] LABS: BLOOD UREA NITROGEN 12 mg/dL (7-22); BUN/CREATININE RATIO 17.14 (6-20)
[2017-11-04] MEDS: KETOROLAC 15 MG/1 ML VIAL IVP SCH ×4 (05:49→23:37)
[2017-11-04] MEDS: Pantoprazole Inj 40 MG in Normal Saline Flush 10 ML IVP SCH (08:39)
[2017-11-04] MEDS: Spironolactone Tab 25 MG TAB PO SCH (08:40)
[2017-11-04] MEDS: VENLAFAXINE XR 75 MG CAP PO SCH (08:40)
[2017-11-04] MEDS: NORMAL SALINE 10 ML SYRINGE FLUSH IVP PRN ×3 (10:56→23:37)
--- NOTE | 2017-11-04 12:07 | PDOC(PROG) ---
Subjective Post Op Day: 2 Pain Management: IV Tylenol, Toradol, and Dilaudid Samano Catheter: Yes Flatus: Yes Diet: Clear Liquids (Small amounts.) Ambulating: Yes Date and Time of Service: 11/04/2017 patient seen at 11:30 AM Interval History: Overall doing very well. No complaints or problems. Reports he passed some gas. No stool. He doesn't like the clear liquids. Feels like he is ready for something more. He is ambulating regularly. He is comfortable. Patient looks great. Seems pleased. Good spirits. Objective : Data - Labs CBC and BMP: 11/04/17 04:09 11/04/17 04:09 - Vital Signs Vital Signs and I&O: Vital Signs - Last Taken Temperature 97.4 F 11/04/17 09:00 Pulse Rate 60 11/04/17 09:00 Respiratory Rate 20 11/04/17 09:00 Blood Pressure 186/93 11/04/17 09:00 Pulse Ox 93 11/04/17 09:00 Intake and Output (24hr x 4 totals) 11/02/17 11/03/17 11/04/17 11/05/17 04:59 04:59 05:59 05:59 Intake Total 1287 / 1287 Output Total 500 / 500 Balance 787 / 787 Objective : Exam - General General Appearance: No Acute Distress, Mild Distress - Respiratory Respiratory Exam: Clear to Auscultation - Bilaterally, Breathing Non Labored - Cardiovascular Cardiovascular Exam: RRR, No Murmur - GI/Abdominal GI/Abdominal Exam: Non Distended, Soft Additional GI/Abdominal Exam Details: Abdomen is soft. Present bowel tones. They are still diminished. He has incisional tenderness. His incisions look good. No signs of infection. - Neurological Neurological Exam: Alert, Oriented x 3 - Psychiatric Psychiatric Exam: Normal Affect, Normal Mood Assessment and Plan - Patient Problems (1) Status post colostomy takedown Current Visit: Yes Status: Acute Priority: High Onset Date: 11/02/17 Comment: Overall doing very well. We'll discontinue his Samano catheter. We'll cut back his IV fluids. We will advance his diet. With this high blood pressure we'll start him on Norvasc 5 mg by mouth daily. Continue postoperative care. Doing very well at this time. Code(s): Z98.890 - Other specified postprocedural states
[2017-11-04] MEDS: AmLODIPine Tab 5 MG TABLET PO SCH (12:45)
[2017-11-04] MEDS ORDERED: AmLODIPine Tab 5 MG TABLET PO ONE (17:33)
[2017-11-04] MEDS ORDERED: CloNIDine Tab 0.1 MG TABLET PO ONE (17:34)
[2017-11-05] MEDS: KETOROLAC 15 MG/1 ML VIAL IVP SCH ×2 (05:01→11:26)
[2017-11-05] MEDS: VENLAFAXINE XR 75 MG CAP PO SCH (08:51)
[2017-11-05] MEDS: Pantoprazole Inj 40 MG in Normal Saline Flush 10 ML IVP SCH (08:51)
[2017-11-05] MEDS: Spironolactone Tab 25 MG TAB PO SCH (08:51)
[2017-11-05] MEDS: AmLODIPine Tab 5 MG TABLET PO SCH (08:52)
[2017-11-05] MEDS ORDERED: HYDROcodone-APAP 5 MG -325 MG TABLET PO PRN (10:45)
[2017-11-05] MEDS: NORMAL SALINE 10 ML SYRINGE FLUSH IVP PRN (11:27)
[2017-11-05] MEDS ORDERED: KETOROLAC 15 MG/1 ML VIAL IVP PRN (15:55)
--- NOTE | 2017-11-05 16:01 | PDOC(PROG) ---
Subjective Post Op Day: 3 Pain Management: IV Tylenol and Toradol. Samano Catheter: No Flatus: Yes Diet: full liquids Ambulating: Yes Date and Time of Service: 11/05/2017. Patient seen at 3:40 PM Interval History: Doing well. No complaints or problems. Only has incisional pain if he coughs or sneezes. He is ambulating. He is voiding. He is passing some gas per rectum. He only has had a small smear of blood per rectum. No significant stool output. He would like to try something more for food. Objective : Data - Labs CBC and BMP: 11/04/17 04:09 11/04/17 04:09 - Vital Signs Vital Signs and I&O: Vital Signs - Last Taken Temperature 97.8 F 11/05/17 11:02 Pulse Rate 55 L 11/05/17 11:02 Respiratory Rate 17 11/05/17 11:02 Blood Pressure 129/66 11/05/17 11:02 Pulse Ox 95 11/05/17 11:02 Intake and Output (24hr x 4 totals) 11/03/17 11/04/17 11/05/17 11/06/17 04:59 05:59 05:59 05:59 Intake Total 1287 / 1287 475 / 475 Output Total 600 / 600 1100 / 1100 Balance 687 / 687 -625 / -625 Objective : Exam - General General Appearance: No Acute Distress, Cooperative - Respiratory Respiratory Exam: Clear to Auscultation - Bilaterally, Breathing Non Labored - Cardiovascular Cardiovascular Exam: RRR, No Murmur - GI/Abdominal GI/Abdominal Exam: Normal Bowel Sounds, Non Tender, Non Distended, Soft Additional GI/Abdominal Exam Details: Minimal if any tenderness. The incision looks good. Much more normal bowel tones. - Neurological Neurological Exam: Alert, Oriented x 3 - Psychiatric Psychiatric Exam: Normal Affect, Normal Mood Assessment and Plan - Patient Problems (1) Status post colostomy takedown Current Visit: Yes Status: Acute Priority: High Onset Date: 11/02/17 Comment: Doing extremely well. Uncomplicated postoperative course. We will advance him to a low residue diet. I told him to go slow. Home in the next 1- 2 days. I would like him to have a bowel movement before he goes. I've discussed all the above with the patient and his family. Code(s): Z98.890 - Other specified postprocedural states
[2017-11-06] MEDS: VENLAFAXINE XR 75 MG CAP PO SCH (08:46)
[2017-11-06] MEDS: PANTOPRAZOLE 40 MG TABLET PO SCH (08:46)
[2017-11-06] MEDS: AmLODIPine Tab 5 MG TABLET PO SCH (08:46)
[2017-11-06] MEDS: Spironolactone Tab 25 MG TAB PO SCH (08:47)
--- NOTE | 2017-11-06 09:00 | PDOC(PROG) ---
Subjective Post Op Day: 4 Pain Management: essentially none Samano Catheter: No Flatus: Yes Diet: Regular Ambulating: Yes Date and Time of Service: 11/06/2017. Patient seen at 8:45 AM. Interval History: Doing very well. No complaints or problems. He is passing gas. He has not had a bowel movement. In fact he has not had a bowel movement since his surgery in May. He is tolerating a low-residue diet. His low-residue diet just started yesterday. He is ambulating. He is voiding. His pain is well controlled. He feels well. Objective : Data - Labs CBC and BMP: 11/04/17 04:09 11/04/17 04:09 - Vital Signs Vital Signs and I&O: Vital Signs - Last Taken Temperature 98.8 F 11/06/17 08:23 Pulse Rate 62 11/06/17 08:23 Respiratory Rate 16 11/06/17 08:23 Blood Pressure 166/81 11/06/17 08:23 Pulse Ox 96 11/06/17 08:23 Intake and Output (24hr x 4 totals) 11/04/17 11/05/17 11/06/17 11/07/17 05:59 05:59 05:59 05:59 Intake Total 1287 / 1287 975 / 975 Output Total 600 / 600 1600 / 1600 325 / 325 Balance 687 / 687 -625 / -625 -325 / -325 Objective : Exam - General General Appearance: No Acute Distress, Cooperative - Respiratory Respiratory Exam: Clear to Auscultation - Bilaterally, Breathing Non Labored - Cardiovascular Cardiovascular Exam: RRR, No Murmur - GI/Abdominal GI/Abdominal Exam: Normal Bowel Sounds, Non Distended, Soft Additional GI/Abdominal Exam Details: The incisions look good. Incisional tenderness only. Good bowel tones. - Neurological Neurological Exam: Alert, Oriented x 3 - Psychiatric Psychiatric Exam: Normal Affect, Normal Mood Assessment and Plan - Patient Problems (1) Status post colostomy takedown Current Visit: Yes Status: Acute Priority: High Onset Date: 11/02/17 Comment: Doing very well. On a low residue diet for now. Needs to have a bowel movement before discharge. Has not passed a bowel movement per rectum since surgery in May. Encouraged ambulation. Increase oral intake. Plan home in the next 1-2 days after bowel movement. Code(s): Z98.890 - Other specified postprocedural states
[2017-11-07] MEDS: PANTOPRAZOLE 40 MG TABLET PO SCH (07:37)
[2017-11-07] MEDS: Spironolactone Tab 25 MG TAB PO SCH (08:00)
[2017-11-07] MEDS: AmLODIPine Tab 5 MG TABLET PO SCH (08:00)
[2017-11-07] MEDS: VENLAFAXINE XR 75 MG CAP PO SCH (08:00)
[2017-11-07] MEDS ORDERED: MAGNESIUM 400 MG/5 ML - 30 ML (MILK OF MAGNESIA) PO ONE (12:41)
--- NOTE | 2017-11-07 12:48 | PDOC(PROG) ---
Subjective Post Op Day: 5 Pain Management: no pain medications Samano Catheter: No Flatus: Yes Diet: Regular Ambulating: Yes Date and Time of Service: 11/07/2017 12:30 PM Interval History: Patient feels well. He is ambulating frequently. He is voiding. He is passing gas. He has only had several small smears of stool. He is tolerating a regular diet. His pain is well controlled. He hasn't had anything for pain for at least 24 hours. I ordered an x-ray of his abdomen today because I would've expected him to have a bowel movement by now. He has stool in the right colon and gas in the transverse colon. There is no colonic dilation. There is a paucity of gas in the descending colon and rectum. The radiologist does not feel this is consistent with an ileus. It is within normal limits. I will start him on Reglan and give him a dose of milk of magnesia to try to stimulate things. Hopefully this will get things started so he can be discharged home. Objective : Data - Labs CBC and BMP: 11/04/17 04:09 11/04/17 04:09 - Vital Signs Vital Signs and I&O: Vital Signs - Last Taken Temperature 97.3 F 11/07/17 09:00 Pulse Rate 69 11/07/17 09:00 Respiratory Rate 18 11/07/17 09:00 Blood Pressure 114/69 11/07/17 09:00 Pulse Ox 94 11/07/17 09:00 Intake and Output (24hr x 4 totals) 11/05/17 11/06/17 11/07/17 11/08/17 05:59 05:59 05:59 05:59 Intake Total 1287 / 1287 975 / 975 940 / 940 120 / 120 Output Total 600 / 600 1600 / 1600 1825 / 1825 500 / 500 Balance 687 / 687 -625 / -625 -885 / -885 -380 / -380 Objective : Exam - General General Appearance: No Acute Distress, Cooperative - Respiratory Respiratory Exam: Clear to Auscultation - Bilaterally, Breathing Non Labored - Cardiovascular Cardiovascular Exam: RRR, No Murmur - GI/Abdominal GI/Abdominal Exam: Normal Bowel Sounds, Non Tender, Non Distended, Soft Additional GI/Abdominal Exam Details: The incision looks great. - Neurological Neurological Exam: Alert, Oriented x 3 - Psychiatric Psychiatric Exam: Normal Affect, Normal Mood Assessment and Plan - Patient Problems (1) Status post colostomy takedown Current Visit: Yes Status: Acute Priority: High Onset Date: 11/02/17 Comment: Overall doing very well. Slow return of GI function. No problems on x -ray. We will give him a dose of milk of magnesia and start him on Reglan. Hopefully this will get things started. Home when he has a bowel movement. Code(s): Z98.890 - Other specified postprocedural states
[2017-11-07] MEDS: Metoclopramide Inj 10 MG/2 ML VIAL IVP SCH ×2 (13:37→18:43)
--- NOTE | 2017-11-07 15:20 | DI ---
XR ABDOMEN KUB UPRIGHT,11/07/2017 11:23 AM: Clinical History: Status post colostomy takedown. Previous Exam: CT abdomen pelvis performed July 02, 2017 Findings: 4 views of the abdomen are obtained, and demonstrate postsurgical changes consistent with a prior mid line incision. There are BRITTANI ruddy noted within the deep pelvis. There is stool noted within the right hemicolon. There is no subdiaphragmatic free air. There is air filling the entire colon to include the distal re ctum. Impression: Nonspecific, nonobstructive bowel gas pattern with a large amount of air throughout the entire colon. This is most consistent with an ileus.
[2017-11-07] MEDS: NORMAL SALINE 10 ML SYRINGE FLUSH IVP PRN (18:43)
[2017-11-08] MEDS: Metoclopramide Inj 10 MG/2 ML VIAL IVP SCH ×4 (01:30→20:53)
[2017-11-08] MEDS: VENLAFAXINE XR 75 MG CAP PO SCH (08:13)
[2017-11-08] MEDS: AmLODIPine Tab 5 MG TABLET PO SCH (08:13)
[2017-11-08] MEDS: PANTOPRAZOLE 40 MG TABLET PO SCH (08:13)
[2017-11-08] MEDS: Spironolactone Tab 25 MG TAB PO SCH (08:14)
[2017-11-08] MEDS: NORMAL SALINE 10 ML SYRINGE FLUSH IVP PRN ×2 (08:14→20:53)
[2017-11-08] MEDS: POLYETHYLENE GLYCOL 3350 17 GM POWDER PO SCH (10:04)
[2017-11-08 11:29] LABS: BASOPHILS # (AUTO) 0.02 10*3/UL; BASOPHILS % (AUTO) 0.2 % (0-1); EOSINOPHILS % (AUTO) 9.9 % (0-8); Hematocrit [HCT] 35.5 % (42.0-52.0); Hemoglobin [HGB] 11.2 g/dL (14.0-18.0); LYMPHOCYTES # (AUTO) 1.16 10*3/uL; MEAN CORPUSCULAR HEMOGLOBIN 29.2 PG (27-31); MEAN CORPUSCULAR HGB CONC 31.5 g/dL (33-37); MEAN CORPUSCULAR VOLUME 92.7 FL (80-90); MEAN PLATELET VOLUME 10.4 FL (7.4-12.2); MONOCYTES # (AUTO) 1.01 10*3/UL (0.3-0.8); MONOCYTES % (AUTO) 12.5 % (5-15); NEUTROPHILS # (AUTO) 4.98 10*3/UL; NEUTROPHILS % (AUTO) 61.5 % (50-80); RED BLOOD COUNT 3.83 10^6/uL (4.70-6.10)
[2017-11-08 11:32] LABS: PLATELET MORPHOLOGY COMMENT NORMAL MORPHOLOGY (NORM); RBC MORPHOLOGY COMMENT NORMAL MORPHOLOGY (NORM); WBC MORPHOLOGY COMMENT NORMAL MORPHOLOGY (NORM)
[2017-11-08 11:40] LABS: BLOOD UREA NITROGEN 16 mg/dL (7-22); SERUM ALBUMIN 3.9 g/dL (3.5-4.8)
--- NOTE | 2017-11-08 12:57 | PDOC(PROG) ---
Subjective Post Op Day: 6 Pain Management: no pain medicines. Samano Catheter: No Flatus: Yes Diet: low residue Ambulating: Yes Date and Time of Service: 11/08/2017 patient seen at 12:15 PM Interval History: He has no complaints. He just ate lunch. No nausea or vomiting. He is passing gas regularly. He feels a little bit bloated today. Still no bowel movement. Has been on solid food for several days. X-ray yesterday showed a possible ileus. Lab work today is unremarkable. I discussed an ileus with the patient. Objective : Data - Labs CBC and BMP: 11/08/17 11:25 11/08/17 11:25 - Vital Signs Vital Signs and I&O: Vital Signs - Last Taken Temperature 97.1 F 11/08/17 11:24 Pulse Rate 65 11/08/17 11:24 Respiratory Rate 20 11/08/17 11:24 Blood Pressure 111/62 11/08/17 11:24 Pulse Ox 96 11/08/17 11:24 Intake and Output (24hr x 4 totals) 11/06/17 11/07/17 11/08/17 11/09/17 05:59 05:59 05:59 05:59 Intake Total 975 / 975 940 / 940 940 / 940 200 / 200 Output Total 1600 / 1600 1825 / 1825 1175 / 1175 Balance -625 / -625 -885 / -885 -235 / -235 200 / 200 Objective : Exam - General General Appearance: No Acute Distress, Cooperative - Respiratory Respiratory Exam: Clear to Auscultation - Bilaterally, Breathing Non Labored - Cardiovascular Cardiovascular Exam: RRR, No Murmur - GI/Abdominal GI/Abdominal Exam: Normal Bowel Sounds, Non Distended, Soft Additional GI/Abdominal Exam Details: Hyperactive bowel tones. Abdomen is soft. Nondistended. Some incisional tenderness. Nothing of significance. - Neurological Neurological Exam: Alert, Oriented x 3 - Psychiatric Psychiatric Exam: Normal Affect, Normal Mood Assessment and Plan - Patient Problems (1) Status post colostomy takedown Current Visit: Yes Status: Acute Priority: High Onset Date: 11/02/17 Comment: Probably mild postoperative ileus. Everything is in order. He is having slow return of GI function. He has been given a dose of MiraLAX. He is on IV Reglan. I have cut him back to a full liquid diet. We will check an x- ray in the morning. I discussed an ileus with the patient. Continue current care. Code(s): Z98.890 - Other specified postprocedural states
[2017-11-08 21:28] VITALS: RESP 18
[2017-11-09] MEDS: Metoclopramide Inj 10 MG/2 ML VIAL IVP SCH ×2 (01:17→06:24)
[2017-11-09] MEDS: NORMAL SALINE 10 ML SYRINGE FLUSH IVP PRN ×2 (01:17→06:24)
[2017-11-09] MEDS: PANTOPRAZOLE 40 MG TABLET PO SCH (07:37)
--- NOTE | 2017-11-09 08:47 | DI ---
XR ABDOMEN KUB UPRIGHT,11/09/2017 7:00 AM: Clinical History: Postoperative ileus. Previous Exam: November 07, 2017 Findings: Upright and supine views of the abdomen are obtained, and demonstrate increasing air within the rectu m. There has been decreasing air dilation of the colon. There are a few scattered areas of air within the small bowel however, these are within normal limits and nondilated. Overlying skin ruddy are stable. Impression: Improving, nonobstructive bowel gas pattern.
[2017-11-09] MEDS: POLYETHYLENE GLYCOL 3350 17 GM POWDER PO SCH (08:50)
[2017-11-09] MEDS: VENLAFAXINE XR 75 MG CAP PO SCH (08:50)
[2017-11-09] MEDS: Spironolactone Tab 25 MG TAB PO SCH (08:50)
--- NOTE | 2017-11-09 11:16 | DCSUMMARY ---
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 Discharge Diagnosis: Status post takedown of his colostomy with coloproctostomy. 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 Hospital Course: Patient underwent reversal of his Menard's procedure on 11/02/2017. He has done very well. He had a somewhat slow return of GI function. He probably had a mild ileus. X-ray today shows a nonobstructive bowel gas pattern. He is passing gas regularly. He has still not had a bowel movement. He has eaten several meals of low residue food. He denies abdominal bloating or discomfort. He has had nothing for pain for several days. He is ambulating frequently. Patient meets all criteria for discharge. He will be discharged home today. He should stay on a soft diet. He should take MiraLAX every day. We will arrange follow-up next week in the office. Exam - Vitals Vital Signs: Vital Signs Temperature 97.6 F Temperature Source Temporal Artery Scan Pulse Rate [Apical] 72 Pulse Rate [Pulse Oximeter] 60 Pulse Rate 64 Respiratory Rate 18 Blood Pressure [Right Arm] 146/83 Blood Pressure [Left Arm] 152/79 Blood Pressure 130/64 Pulse Ox 93 Oxygen Flow Rate RA Oxygen Delivery Method Room Air Height 5 ft 11 in Weight 156 lb 3.2 oz - General General Appearance: No Acute Distress, Cooperative - Respiratory Respiratory Exam: POSITIVE: Clear to Auscultation - Bilaterally, Breathing Non Labored - Cardiovascular Cardiovascular Exam: POSITIVE: RRR, No Murmur - GI/Abdominal GI/Abdominal Exam: POSITIVE: Normal Bowel Sounds, Non Tender, Non Distended, Soft Additional GI/Abdominal Exam Details: The incision looks good. - Neurological Neurological Exam: POSITIVE: Alert, Oriented x 3 - Psychiatric Psychiatric Exam: POSITIVE: Normal Affect, Normal Mood Data Procedures: Reversal of colostomy with coloproctostomy on 11/02/2017. Patient Problems - Patient Problem List (1) Status post colostomy takedown Current Visit: Yes Status: Acute Onset Date: 11/02/17 Priority: High Comment: doing very well. Passing gas regularly. X-ray shows resolution of a mild postoperative ileus. There is gas throughout the colon. Code(s): Z98.890 - Other specified postprocedural states Category: Medical
[2017-11-09 12:31] VITALS: BP 134/89; TEMP 97.5; O2SAT 96
== END 2017-11-09 13:20 | disposition home or self-care (01) | DRG 346 ==
LOC: OPS 06:53 → MED/SURG 12:30
PROVIDERS: ADMIT Surgery; ATTEND Surgery